=== PATIENT | male | born 1955 | race Caucasian/White ===

== ENCOUNTER 2016-08-06 09:08 | Day surgery (SDC) | payer BC ==
[2016-08-03 14:53] VITALS: BMI 40.6
[~2016-08-06 09:08] MED LIST: LACTATED RINGERS 1,000 ML IV SCH
[2016-08-06] MEDS ORDERED: LIDOCAINE 1% 20 ML VIAL (10MG/ML) FOR IV START SQ ONE (09:33)
[2016-08-06 09:53] VITALS: RESP 16; TEMP 99
[2016-08-06] MEDS ORDERED: LIDOCAINE 1% INJ 10MG/ML (20 ML MDV) ONE (10:23)
[2016-08-06] MEDS ORDERED: PROPOFOL 10 MG/ML 20 ML VIAL IV ONE (10:23)
--- NOTE | 2016-08-06 11:00 | P.PCN ---
Date of Procedure: 08/06/16 Procedure(s) Performed: Procedure: Colonoscopy and polypectomy. Preoperative diagnosis: Screening for neoplasia, patient has history of polyps. Postoperative diagnosis: Multiple polyps snared but no large polyps or cancer. Preparation: HalfLytely prep. Sedation: Was provided by anesthesia. Brief clinical history: The patient is a 60-year-old male who is scheduled for this evaluation because of history of polyps. He had 2 prior exam the last was around 3 years ago. At this time, he has no abdominal complaints, bleeding or anemia. Procedure: With the patient on his left lateral decubitus position and after informed consent and adequate sedation, the perianal area was inspected and it did not show any fissures or fistulas. There were no masses felt on digital rectal examination. The Olympus CFQ 160L video colonoscope was then inserted in the rectum in the usual fashion and advanced to the cecum. There were multiple small and medium flat polyps which were snared from the right colon, splenic flexure and sigmoid. There were no large polyps or cancer or other significant pathology. I retroflexed endoscope in the rectum before the endoscope was withdrawn. The patient tolerated the procedure well. Plan: The patient was reassured. He will follow up with you as planned and I recommended a repeat exam in 3-5 years based on pathology results.
[2016-08-06 11:19] VITALS: BP 131/85; PULSE 61
== END 2016-08-06 11:49 | disposition home or self-care (01) ==
LOC: ORWHC2ENDO 09:08
DX: Z12.11 Encounter for screening for malignant neoplasm of colon (principal); D12.2 Benign neoplasm of ascending colon; D12.5 Benign neoplasm of sigmoid colon; D12.3 Benign neoplasm of transverse colon; Z86.010 Personal history of colon polyps; I10 Essential (primary) hypertension; E78.5 Hyperlipidemia, unspecified; Z88.8 Allergy status to other drugs, medicaments and biological substances; Z79.82 Long term (current) use of aspirin; Z79.899 Other long term (current) drug therapy; Z87.442 Personal history of urinary calculi
CPT/HCPCS: 88305; 45385; J2001; J2704; 99153

== ENCOUNTER 2020-01-21 16:28 | Inpatient (IN) | payer BC ==
[2020-01-21] MEDS ORDERED: ACETAMINOPHEN TAB 500 MG TAB PO STA (16:53)
[2020-01-21] MEDS ORDERED: IPRATROPIUM-ALBUTEROL 3 ML NEB INHALATION STA (16:54)
--- NOTE | 2020-01-21 16:56 | ED ---
General Adult HPI - General Chief complaint: Shortness of Breath Stated complaint: SOB/COVID positive Time Seen by Provider: 01/21/20 16:45 Source: patient, RN notes reviewed Mode of arrival: ambulatory Limitations: no limitations - History of Present Illness Initial comments: Patient is a [facility] 64-year-old male presenting to the emergency department with difficulty in breathing. Patient has been having fevers for the past 2 weeks. Patient was tested positive for Crohn a virus 5 days ago. Patient was at a testing facility outside of [place]. Minimal cough. Patient has been having shortness of breath over the past 2-3 days. Patient is having fatigue. Patient still has fevers. Minimal headaches. Patient has lost sense of smell and taste. No significant rhinorrhea. Patient is a former smoker of 35 years - Related Data Home Medications Medication Instructions Recorded Confirmed ALPRAZolam [Xanax] 0.5 mg PO BID PRN 11/23/13 08/06/16 Aspirin 81 mg PO DAILY 11/23/13 08/03/16 Atorvastatin [Lipitor] 20 mg PO HS 11/23/13 08/03/16 Multivitamin [Men's Multi-Vitamin] 1 each PO DAILY 11/23/13 08/03/16 Fish Oil/Dha/Epa [Fish Oil 1,200 1 tab PO DAILY 11/24/13 08/03/16 mg Fish Oil] amLODIPine BESYLATE/BENAZEPRIL 1 tab PO DAILY 11/24/13 08/06/16 [Lotrel 10-40 MG] Albuterol Inhaler (Mhu) [Ventolin 1 puff INHALATION DIRECTED PRN 08/03/16 08/06/16 Hfa Inhaler] Triamterene-Hctz 37.5-25Mg 1 tab PO DAILY 08/03/16 08/03/16 [Maxzide 37.5-25] Allergies Allergy/AdvReac Type Severity Reaction Status Date / Time loratadine [From Claritin] AdvReac dizziness Verified 01/21/20 16:37 Review of Systems ROS Statement: Those systems with pertinent positive or pertinent negative responses have been documented in the HPI. ROS Other: All systems not noted in ROS Statement are negative. Constitutional: Reports: fever, chills Eyes: Denies: eye pain ENT: Denies: ear pain Respiratory: Reports: cough (Minimal), dyspnea Cardiovascular: Denies: chest pain Endocrine: Reports: fatigue Gastrointestinal: Denies: abdominal pain Genitourinary: Denies: dysuria Musculoskeletal: Denies: back pain Skin: Denies: rash Neurological: Denies: weakness Past Medical History Past Medical History: Hyperlipidemia, Hypertension Additional Past Medical History / Comment(s): SOB on excertion, kidney stones History of Any Multi-Drug Resistant Organisms: None Reported Past Surgical History: Cholecystectomy Additional Past Surgical History / Comment(s): RK SURGERY ON EYES, SKIN CANCER REMOVED from top of head, vasectomy Past Anesthesia/Blood Transfusion Reactions: No Reported Reaction Past Psychological History: No Psychological Hx Reported Smoking Status: Never smoker Past Alcohol Use History: Rare Past Drug Use History: None Reported - Past Family History Father Family Medical History: Cancer General Exam Limitations: no limitations General appearance: alert, in no apparent distress Head exam: Present: normocephalic Eye exam: Present: normal appearance Neck exam: Present: normal inspection Respiratory exam: Present: wheezes (Occasional expiratory wheeze), decreased breath sounds Cardiovascular Exam: Present: regular rate, normal rhythm GI/Abdominal exam: Present: soft. Absent: tenderness Extremities exam: Present: normal inspection. Absent: pedal edema, calf tenderness Neurological exam: Present: alert Psychiatric exam: Present: normal affect, normal mood Skin exam: Present: normal color Course Vital Signs 01/21/20 01/21/20 01/21/20 16:33 17:57 18:00 Temperature 99.5 F 98.2 F Pulse Rate 77 71 Respiratory 22 28 H 24 Rate Blood Pressure 134/76 125/66 O2 Sat by Pulse 90 L 92 L Oximetry 01/21/20 01/21/20 18:23 18:30 Temperature Pulse Rate 72 74 Respiratory Rate Blood Pressure O2 Sat by Pulse Oximetry EKG Findings - EKG Comments: EKG Findings:: Sinus rhythm at 77. MO 128. QRS 94. QT 390. QTC 441. Normal axis. Normal QRS. No acute ST change. Medical Decision Making - Medical Decision Making Patient reevaluated with pulse ox 9091 on 3 L. Patient states she is slightly improved with oxygen. Patient updated on results and plan. Case was discussed with Dr. Livingston, covering for Dr. Reich, who admits for Dr. henson. He does recommend Decadron. And pulmonary consult. - Lab Data Result diagrams: 01/21/20 17:35 01/21/20 17:35 Lab Results 01/21/20 01/21/20 01/21/20 Range/Units 17:35 17:35 17:35 WBC 4.9 (3.8-10.6) k/uL RBC 5.17 (4.30-5.90) m/uL Hgb 14.9 (13.0-17.5) gm/dL Hct 44.8 (39.0-53.0) % MCV 86.6 (80.0-100.0) fL MCH 28.8 (25.0-35.0) pg MCHC 33.3 (31.0-37.0) g/dL RDW 13.1 (11.5-15.5) % Plt Count 191 (150-450) k/uL Neutrophils % 69 % Lymphocytes % 19 % Monocytes % 8 % Eosinophils % 1 % Basophils % 1 % Neutrophils # 3.4 (1.3-7.7) k/uL Lymphocytes # 0.9 L (1.0-4.8) k/uL Monocytes # 0.4 (0-1.0) k/uL Eosinophils # 0.0 (0-0.7) k/uL Basophils # 0.0 (0-0.2) k/uL PT 9.4 (9.0-12.0) sec INR 0.9 (<1.2) APTT 26.5 (22.0-30.0) sec Sodium 135 L (137-145) mmol/L Potassium 4.1 (3.5-5.1) mmol/L Chloride 103 (98-107) mmol/L Carbon Dioxide 21 L (22-30) mmol/L Anion Gap 11 mmol/L BUN 18 (9-20) mg/dL Creatinine 1.24 (0.66-1.25) mg/dL Est GFR (CKD-EPI)AfAm 71 (>60 ml/min/1.73 sqM) Est GFR (CKD-EPI)NonAf 61 (>60 ml/min/1.73 sqM) Glucose 122 H (74-99) mg/dL Plasma Lactic Acid Damian (0.7-2.0) mmol/L Calcium 8.8 (8.4-10.2) mg/dL Magnesium 2.0 (1.6-2.3) mg/dL Total Bilirubin 0.5 (0.2-1.3) mg/dL AST 94 H (17-59) U/L ALT 80 H (4-49) U/L Alkaline Phosphatase 165 H (38-126) U/L Lactate Dehydrogenase 1532 H (313-618) U/L C-Reactive Protein 81.9 H (<10.0) mg/L Total Protein 6.5 (6.3-8.2) g/dL Albumin 3.8 (3.5-5.0) g/dL 01/21/20 Range/Units 17:35 WBC (3.8-10.6) k/uL RBC (4.30-5.90) m/uL Hgb (13.0-17.5) gm/dL Hct (39.0-53.0) % MCV (80.0-100.0) fL MCH (25.0-35.0) pg MCHC (31.0-37.0) g/dL RDW (11.5-15.5) % Plt Count (150-450) k/uL Neutrophils % % Lymphocytes % % Monocytes % % Eosinophils % % Basophils % % Neutrophils # (1.3-7.7) k/uL Lymphocytes # (1.0-4.8) k/uL Monocytes # (0-1.0) k/uL Eosinophils # (0-0.7) k/uL Basophils # (0-0.2) k/uL PT (9.0-12.0) sec INR (<1.2) APTT (22.0-30.0) sec Sodium (137-145) mmol/L Potassium (3.5-5.1) mmol/L Chloride (98-107) mmol/L Carbon Dioxide (22-30) mmol/L Anion Gap mmol/L BUN (9-20) mg/dL Creatinine (0.66-1.25) mg/dL Est GFR (CKD-EPI)AfAm (>60 ml/min/1.73 sqM) Est GFR (CKD-EPI)NonAf (>60 ml/min/1.73 sqM) Glucose (74-99) mg/dL Plasma Lactic Acid Damian 1.1 (0.7-2.0) mmol/L Calcium (8.4-10.2) mg/dL Magnesium (1.6-2.3) mg/dL Total Bilirubin (0.2-1.3) mg/dL AST (17-59) U/L ALT (4-49) U/L Alkaline Phosphatase (38-126) U/L Lactate Dehydrogenase (313-618) U/L C-Reactive Protein (<10.0) mg/L Total Protein (6.3-8.2) g/dL Albumin (3.5-5.0) g/dL - Radiology Data Radiology results: image reviewed (Chest x-ray shows hazy asymmetric opacification left lung base.) Disposition Clinical Impression: COVID-19 Disposition: ADMITTED IP TO THIS [facility] Condition: Serious Is patient prescribed a controlled substance at d/c from ED?: No Referrals: Jesus Arnold MD [Primary Care Provider] - 1-2 days Decision Time: 19:05
--- NOTE | 2020-01-21 17:35 | XR ---
EXAMINATION TYPE: XR chest 1V portable DATE OF EXAM: 01/21/2020 COMPARISON: Chest radiograph 11/26/2013 HISTORY: Shortness of breath and cough. COVID-19 positive. TECHNIQUE: Single frontal view of the chest is obtained. FINDINGS: There is hazy asymmetric opacification of the left lung base and silhouetting of the left heart border suggesting lingular involvement. No evidence of pleural effusion or pneumothorax. The c ardiac silhouette size is within normal limits. No evidence of displaced fracture. IMPRESSION: Hazy asymmetric opacification of the left lung base. Findings are nonspecific and could be related to COVID-19 viral infection.
[2020-01-21 17:55] LABS: Basophils % (A) 1 %; Eosinophils % (A) 1 %; HCT 44.8 % (39.0-53.0); HGB 14.9 gm/dL (13.0-17.5); Lymphocytes # (A) 0.9 k/uL (1.0-4.8); Lymphocytes % (A) 19 %; MCH 28.8 pg (25.0-35.0); MCHC 33.3 g/dL (31.0-37.0); MCV 86.6 fL (80.0-100.0); Mean Platelet Volume 8.2; Monocytes # (A) 0.4 k/uL (0-1.0); Monocytes % (A) 8 %; Neutrophils # (A) 3.4 k/uL (1.3-7.7); Neutrophils % (A) 69 %; Platelet Count 191 k/uL (150-450); RBC 5.17 m/uL (4.30-5.90); RDW 13.1 % (11.5-15.5); WBC 4.9 k/uL (3.8-10.6)
[2020-01-21 18:10] LABS: Albumin 3.8 g/dL (3.5-5.0); C Reactive Protein 81.9 mg/L (<10.0); Calcium 8.8 mg/dL (8.4-10.2); Potassium 4.1 mmol/L (3.5-5.1); Total Bilirubin 0.5 mg/dL (0.2-1.3); Total Protein 6.5 g/dL (6.3-8.2)
[2020-01-21 18:15] LABS: INR 0.9 (<1.2); Partial Thromboplastin Time 26.5 sec (22.0-30.0); Prothrombin Time 9.4 sec (9.0-12.0)
[2020-01-21] MEDS ORDERED: IPRATROPIUM-ALBUTEROL 3 ML NEB INHALATION PRN (19:06)
[2020-01-21] MEDS ORDERED: DEXAMETHASONE SOD PHOSPHATE 4 MG/ML 1 ML VIAL IV SCH (19:15)
--- NOTE | 2020-01-21 20:21 | P.HPIM ---
History of Present Illness H&P Date: 01/21/20 The patient is a 64-year-old male with a PMH of hypertension, hyperlipidemia, and tobacco abuse who presented to the ED with complaints of shortness of breath. The patient notes he was tested for Coronavirus 5 days ago at an urgent care in [place] and was notified 2 days later that his test was positive. He reports fevers, myalgia, anosmia, fatigue, with gradually worsening shortness of breath over the past 2 weeks. He denied sore throat or cough. Denied nausea, vomiting, abdominal pain, or diarrhea. Denied chest pain. In the emergency room, upon presentation his vitals were 134/76, SpO2 90% on room air, temperature 99.5F, and a pulse of 77. Chest x-ray was read as hazy asymme tric opacification of the left lung base. EKG had revealed sinus rhythm with APCs at 77 bpm with no acute ST/T-wave changes noted as reviewed by me. Laboratory evaluation revealed a WBC count of 4.9, lymphopenia at 0.9, hemoglobin 14.9, platelets 191, CRP 81.9, LDH 1532, AST 94, ALT 80, alkaline p hosphatase 165, sodium 135, CO2 21. The patient was seen with appropriate PPE including N-95, protective gown, and face shield. Review of Systems Pertinent positives and negatives as discussed in HPI, a complete review of systems was performed and all other systems are negative. Past Medical History Past Medical History: Hyperlipidemia, Hypertension Additional Past Medical History / Comment(s): SOB on excertion, kidney stones History of Any Multi-Drug Resistant Organisms: None Reported Past Surgical History: Cholecystectomy Additional Past Surgical History / Comment(s): RK SURGERY ON EYES, SKIN CANCER REMOVED from top of head, vasectomy Past Anesthesia/Blood Transfusion Reactions: No Reported Reaction Past Psychological History: No Psychological Hx Reported Smoking Status: Never smoker Past Alcohol Use History: Rare Past Drug Use History: None Reported - Past Family History Father Family Medical History: Cancer Medications and Allergies Home Medications Medication Instructions Recorded Confirmed Type ALPRAZolam [Xanax] 0.5 mg PO BID PRN 11/23/13 01/21/20 History Aspirin 81 mg PO HS 11/23/13 01/21/20 History Atorvastatin [Lipitor] 20 mg PO HS 11/23/13 01/21/20 History Multivitamin [Men's Multi-Vitamin] 1 tab PO DAILY 11/23/13 01/21/20 History Fish Oil/Dha/Epa [Fish Oil 1,200 1 tab PO BID 11/24/13 01/21/20 History mg Fish Oil] amLODIPine BESYLATE/BENAZEPRIL 1 cap PO DAILY 11/24/13 01/21/20 History [Lotrel 10-40 MG] Triamterene-Hctz 37.5-25Mg 1 tab PO DAILY 08/03/16 01/21/20 History [Maxzide 37.5-25] Cholecalciferol [Vitamin D3 (25 2,000 unit PO DAILY 01/21/20 01/21/20 History Mcg = 1000 Iu)] Allergies Allergy/AdvReac Type Severity Reaction Status Date / Time loratadine [From Claritin] AdvReac dizziness Verified 01/21/20 21:13 Physical Exam Vitals: Vital Signs Temp Pulse Resp BP Pulse Ox 01/21/20 18:30 74 01/21/20 18:23 72 01/21/20 18:00 24 01/21/20 17:57 98.2 F 71 28 H 125/66 92 L 01/21/20 16:33 99.5 F 77 22 134/76 90 L Intake and Output 01/21/20 01/21/20 01/21/20 06:59 14:59 22:59 Other: Weight 136.078 kg General: non toxic, no distress, appears at stated age, morbidly obese Derm: no unusual rashes/lesions no unusual ecchymoses, warm, dry Head: atraumatic, normocephalic, symmetric Eyes: EOMI, no lid lag, anicteric sclera, pupils equal round reactive to light ENT: Nose and ears atraumatic, no thrush, no pharyngeal erythema Neck: No thyromegaly, no cervical lymphadenopathy, trachea midline, supple Mouth: no lip lesion, mucus membranes moist Cardiovascular: S1S2 reg, no murmur, positive posterior tibial pulse bilateral, no edema, capillary refill less than 2 seconds Lungs: CTA bilateral, no rhonchi, no rales , no accessory muscle use Abdominal: soft, nontender to palpation, no guarding, no appreciable organomegaly, normal bowel sounds Ext: no gross muscle atrophy, muscle strength 5 out of 5 in all 4 extremities grossly, no contractures, Neuro: CN II-XI grossly intact, light touch intact all 4 extremities, finger to nose within normal limits, Psych: Alert, oriented, appropriate affect Results CBC & Chem 7: 01/21/20 17:35 01/21/20 17:35 Labs: Abnormal Lab Results - Last 24 Hours (Table) 01/21/20 01/21/20 Range/Units 17:35 17:35 Lymphocytes # 0.9 L (1.0-4.8) k/uL Sodium 135 L (137-145) mmol/L Carbon Dioxide 21 L (22-30) mmol/L Glucose 122 H (74-99) mg/dL AST 94 H (17-59) U/L ALT 80 H (4-49) U/L Alkaline Phosphatase 165 H (38-126) U/L Lactate Dehydrogenase 1532 H (313-618) U/L C-Reactive Protein 81.9 H (<10.0) mg/L Assessment and Plan Plan: Covid-19 infection -Obtain ferritin, CPK, fibrinogen, BNP, and d-dimer levels -Continue with supplemental oxygen -Patient does not meet criteria for Remdesevir (since >7 days since onset of symptoms) -Will initiate Dexamethasone 6 mg qd PO x 10 days -Monitor labs daily -Start Lovenox 40 mg qd for now. If D-dimer > 3, may consider increasing dose -Will hold off on Hydroxychloroquine for now -Monitor LFTs daily -Isolation precautions Chronic conditions: HTN, HLD -C/w home meds DVT prophylaxis -Lovenox 40 mg qd The patient is admitted with an anticipated greater than 2 midnight stay for evaluation of Covid-19 infection CODE STATUS: Full Code Discussed with: Patient Anticipated discharge date: 3-[address]: Home A total of 40 minutes was spent on the care of this complex patient more than 50% of the time was spent in counseling and care coordination.
[2020-01-21] MEDS ORDERED: ENOXAPARIN 40 MG/0.4 ML SYRINGE SQ SCH (21:00)
[2020-01-21 21:28] LABS: D-Dimer 1.13 mg/L FEU (<0.60)
[2020-01-22] MEDS: amLODIPine 10 MG TAB PO SCH (08:13)
[2020-01-22] MEDS: TRIAMTERENE-HCTZ 37.5-25MG 1 EACH TAB PO SCH (08:14)
[2020-01-22] MEDS: lisinopriL 20 MG TAB PO SCH (08:14)
[2020-01-22] MEDS: dexAMETHasone 2 MG TAB PO SCH (08:14)
[2020-01-22 08:21] LABS: HCT 47.7 % (39.0-53.0); HGB 16.1 gm/dL (13.0-17.5); MCH 29.8 pg (25.0-35.0); MCHC 33.7 g/dL (31.0-37.0); MCV 88.7 fL (80.0-100.0); Mean Platelet Volume 8.4; Platelet Count 178 k/uL (150-450); RBC 5.38 m/uL (4.30-5.90); RDW 13.1 % (11.5-15.5); WBC 3.2 k/uL (3.8-10.6)
[2020-01-22 08:30] LABS: Prothrombin Time 10.1 sec (9.0-12.0)
[2020-01-22 08:35] LABS: Albumin 3.9 g/dL (3.5-5.0); Calcium 8.5 mg/dL (8.4-10.2); Potassium 4.5 mmol/L (3.5-5.1); Total Bilirubin 0.6 mg/dL (0.2-1.3); Total Protein 6.5 g/dL (6.3-8.2)
[2020-01-22 09:08] LABS: C Reactive Protein 149.6 mg/L (<10.0)
[2020-01-22] MEDS: FAMOTIDINE 20 MG TAB PO SCH (11:37)
--- NOTE | 2020-01-22 11:57 | P.CNPUL ---
History of Present Illness Consult date: 01/22/20 Reason for consult: dyspnea, other Chief complaint: Dyspnea, fever History of present illness: 64-year-old white male patient of Dr. Arnold, with history of hypertension, hyperlipidemia, former smoker, presented to the emergency department on 01/21/2020 with 2 week history of fevers and patient had been tested for Co ronavirus at a testing facility outside of [place], and was found to be positive. Over last to 3 days patient has been increasingly short of breath, complaining of fatigue, headaches, loss of smell and taste, and still having fevers. Patient was also found to be hypoxemic, with a pulse ox of 90-91 on 3 L of oxygen, only low-grade temp of 99.5F on presentation, afebrile during his hospital stay, hemodynamically he is stable, chest x-ray showing hazy asymmetric opacification of the left lung base. EKG showing sinus rhythm with PVCs, was normal EKG. Labs on admission showed CBC within normal limits with the exception of lymphocyte count of 0.9, d-dimer of 1.13, fibrinogen 590, sodium is 135, CO2 is 21, the rest of electrolytes and renal profile were unremarkable, plasma lactic acid was 1.1, AST was 94, ALT was 80, alkaline phosphatase was 165, LDH was 1532, CK was 264, troponin was 0.024, and 0.012. ProBNP was 82. Patient was started on oral Decadron at 6 milligrams daily, prophylactic doses of Lovenox, he is on his home dose of Lipitor, home dose of lisinopril, Triamterene-Hctz. At the time of our evaluation patient is in isolation, and droplet precautions, awake and alert, on 4 L of oxygen his pulse ox is 94%, respirations are nonlabored, short of breath with exertion, afebrile, hemodynamically stable. Denies any worsening shortness of breath, no nausea vomiting abdominal pain or diarrhea, no chest pain. Review of Systems All systems: negative Constitutional: Reports fatigue, Reports weakness, Denies chills, Denies fever Eyes: denies blurred vision, denies pain Ears, nose, mouth and throat: Denies headache, Denies sore throat Cardiovascular: Denies chest pain, Denies shortness of breath Respiratory: Reports dyspnea, Denies cough Gastrointestinal: Denies abdominal pain, Denies diarrhea, Denies nausea, Denies vomiting Musculoskeletal: Denies myalgias Integumentary: Denies pruritus, Denies rash Neurological: Denies numbness, Denies weakness Psychiatric: Denies anxiety, Denies depression Endocrine: Denies fatigue, Denies weight change Past Medical History Past Medical History: Hyperlipidemia, Hypertension Additional Past Medical History / Comment(s): SOB on excertion, kidney stones History of Any Multi-Drug Resistant Organisms: None Reported Past Surgical History: Cholecystectomy Additional Past Surgical History / Comment(s): RK SURGERY ON EYES, SKIN CANCER REMOVED from top of head, vasectomy Past Anesthesia/Blood Transfusion Reactions: No Reported Reaction Past Psychological History: No Psychological Hx Reported Smoking Status: Never smoker Past Alcohol Use History: Rare Past Drug Use History: None Reported - Past Family History Father Family Medical History: Cancer Medications and Allergies Home Medications Medication Instructions Recorded Confirmed Type ALPRAZolam [Xanax] 0.5 mg PO BID PRN 11/23/13 01/21/20 History Aspirin 81 mg PO HS 11/23/13 01/21/20 History Atorvastatin [Lipitor] 20 mg PO HS 11/23/13 01/21/20 History Multivitamin [Men's Multi-Vitamin] 1 tab PO DAILY 11/23/13 01/21/20 History Fish Oil/Dha/Epa [Fish Oil 1,200 1 tab PO BID 11/24/13 01/21/20 History mg Fish Oil] amLODIPine BESYLATE/BENAZEPRIL 1 cap PO DAILY 11/24/13 01/21/20 History [Lotrel 10-40 MG] Triamterene-Hctz 37.5-25Mg 1 tab PO DAILY 08/03/16 01/21/20 History [Maxzide 37.5-25] Cholecalciferol [Vitamin D3 (25 2,000 unit PO DAILY 01/21/20 01/21/20 History Mcg = 1000 Iu)] Allergies Allergy/AdvReac Type Severity Reaction Status Date / Time loratadine [From Claritin] AdvReac dizziness Verified 01/21/20 21:13 Physical Exam Vitals: Vital Signs Temp Pulse Pulse Resp BP BP BP 01/22/20 08:00 65 18 01/22/20 07:19 97.8 F 65 20 120/66 01/22/20 00:46 97.6 F 59 L 16 01/21/20 21:09 97.8 F 58 L 18 122/67 01/21/20 20:00 79 21 103/60 01/21/20 18:30 74 01/21/20 18:23 72 01/21/20 18:00 24 01/21/20 17:57 98.2 F 71 28 H 125/66 01/21/20 16:33 99.5 F 77 22 134/76 BP Pulse Ox 01/22/20 08:00 01/22/20 07:19 95 01/22/20 00:46 109/63 92 L 01/21/20 21:09 93 L 01/21/20 20:00 4 L 01/21/20 18:30 01/21/20 18:23 01/21/20 18:00 01/21/20 17:57 92 L 01/21/20 16:33 90 L Intake and Output 01/21/20 01/22/20 01/22/20 22:59 06:59 14:59 Other: Voiding Method Toilet Toilet # Voids 1 1 1 Weight 136.078 kg GENERAL EXAM: Alert, very pleasant, 64 -year-old white male on 4 L of oxygen with pulse ox of 95%, comfortable in no apparent distress. HEAD: Normocephalic/atraumatic. EYES: Normal reaction of pupils, equal size. Conjunctiva pink, sclera white. NOSE: Clear with pink turbinates. THROAT: No erythema or exudates. NECK: No masses, no JVD, no thyroid enlargement, no adenopathy. CHEST: No chest wall deformity. Symmetrical expansion. LUNGS: Equal air entry with no crackles, wheeze, rhonchi or dullness. CVS: Regular rate and rhythm, normal S1 and S2, no gallops, no murmurs, no rubs ABDOMEN: Soft, nontender. No hepatosplenomegaly, normal bowel sounds, no guarding or rigidity. EXTREMITIES: No clubbing, no edema, no cyanosis, 2+ pulses and upper and lower extremities. MUSCULOSKELETAL: Muscle strength and tone normal. SPINE: No scoliosis or deformity SKIN: No rashes CENTRAL NERVOUS SYSTEM: Alert and oriented -3. No focal deficits, tone is normal in all 4 extremities. PSYCHIATRIC: Alert and oriented -3. Appropriate affect. Intact judgment and insight. Results - Laboratory Findings CBC and BMP: 01/22/20 07:31 01/22/20 07:31 PT/INR, D-dimer PT 10.1 sec (9.0-12.0) 01/22/20 07:31 INR 1.0 (<1.2) 01/22/20 07:31 D-Dimer 1.13 mg/L FEU (<0.60) H 01/21/20 20:31 Abnormal lab findings: Abnormal Labs 01/21/20 01/21/20 01/21/20 17:35 17:35 20:31 WBC Lymphocytes # 0.9 L Fibrinogen 590 H D-Dimer 1.13 H Sodium 135 L Carbon Dioxide 21 L BUN Glucose 122 H AST 94 H ALT 80 H Alkaline Phosphatase 165 H Lactate Dehydrogenase 1532 H Creatine Kinase C-Reactive Protein 81.9 H 01/21/20 01/22/20 01/22/20 20:31 07:31 07:31 WBC 3.2 L Lymphocytes # Fibrinogen 608 H D-Dimer Sodium Carbon Dioxide BUN Glucose AST ALT Alkaline Phosphatase Lactate Dehydrogenase Creatine Kinase 264 H C-Reactive Protein 01/22/20 07:31 WBC Lymphocytes # Fibrinogen D-Dimer Sodium Carbon Dioxide BUN 22 H Glucose 158 H AST 76 H ALT 70 H Alkaline Phosphatase 151 H Lactate Dehydrogenase 1184 H Creatine Kinase C-Reactive Protein 149.6 H - Diagnostic Findings Chest x-ray: report reviewed, image reviewed Additional studies: EKG reviewed Assessment and Plan Plan: Assessment: #1. Acute COVID 19 pneumonitis, patient tested at an outside facility For COVID 19 5 days prior to presentation and was found to be positive, onset of symptoms was 2 weeks ago prior to presentation. Chest x-ray showing hazy asymmetric opacification of the left lung base #2. Acute hypoxic respiratory failure related to the above #3. Lymphopenia, elevated d-dimer of 1.13, elevated fibrinogen, LDH and CRP related to acute Covid 19 infection #4. Dyspnea, fatigue, anosmia related to the above #5. Hypertension #6. Hyperlipidemia #7. Former smoker, currently in remission Plan: Continue current dose Decadron for a total course of 10 days, we'll increase the prophylactic dose of Lovenox to 80 mg twice daily, will add Pepcid 40 mg daily, continue all other medications, we'll continue to monitor the patient for any worsening symptoms of shortness of breath, worsening hypoxemia. Follow-up chest x-ray in 48 hours I performed a history & physical examination of the patient and discussed their management with my nurse practitioner, Jami Andrews. I reviewed the nurse practitioner's note and agree with the documented findings and plan of care. Lung sounds are positive for diminished breath sounds at the bases. The findings and the impression was discussed with the patient. I attest to the documentation by the nurse practitioner. Time with Patient: Greater than 30
[2020-01-22 12:03] LABS: Ferritin 3005.6 ng/mL (22.0-322.0)
[2020-01-22] MEDS: ALBUTEROL HFA INHALER INHALATION PRN ×3 (13:06→20:27)
[2020-01-22] MEDS ORDERED: AZITHROMYCIN 500 MG in SODIUM CHLORIDE 0.9% 250 ML IVPB SCH (17:00)
--- NOTE | 2020-01-22 17:04 | P.PN ---
Subjective Progress Note Date: 01/22/20 Principal diagnosis: Shortness of breath Patient was seen and examined. No acute events overnight. Patient continues to report shortness of breath especially with exertion. He has no other complaints. He denies any chest pain or palpitations. No nausea or vomiting. No fever or chills. Objective - Vital Signs Vital signs: Vital Signs Temp 98.1 F 01/22/20 12:00 Pulse 71 01/22/20 12:00 Resp 18 01/22/20 12:00 BP 127/71 01/22/20 12:00 Pulse Ox 90 L 01/22/20 12:00 Intake & Output 01/21/20 01/22/20 01/22/20 18:59 06:59 18:59 Weight 136.078 kg 136.078 kg Other: Voiding Method Toilet Toilet # Voids 1 2 - Exam General: [non toxic], [no distress on 3 L NC], [appears at stated age] Derm: [warm], [dry] Head: [atraumatic], [normocephalic], [symmetric] Eyes: [EOMI], [no lid lag], [anicteric sclera] Mouth: [no lip lesion], [mucus membranes moist] Cardiovascular: [S1S2 reg], [no murmur], [positive DP pulse bilateral], Lungs: [Decreased breath sounds bilateral], [no rhonchi, no rales] , [no accessory muscle use] Abdominal: [soft], [ nontender to palpation], [no guarding], [no appreciable organomegaly] Ext: [no gross muscle atrophy], [no edema], [no contractures] Neuro: [no focal neuro deficits] Psych: [Alert], [oriented], [appropriate affect] - Labs CBC & Chem 7: 01/22/20 07:31 01/22/20 07:31 Labs: Abnormal Lab Results - Last 24 Hours (Table) 01/21/20 01/21/20 01/21/20 Range/Units 17:35 17:35 17:35 WBC (3.8-10.6) k/uL Lymphocytes # 0.9 L (1.0-4.8) k/uL Fibrinogen (200-500) mg/dL D-Dimer (<0.60) mg/L FEU Sodium 135 L (137-145) mmol/L Carbon Dioxide 21 L (22-30) mmol/L BUN (9-20) mg/dL Glucose 122 H (74-99) mg/dL Ferritin 3005.6 H (22.0-322.0) ng/mL AST 94 H (17-59) U/L ALT 80 H (4-49) U/L Alkaline Phosphatase 165 H (38-126) U/L Lactate Dehydrogenase 1532 H (313-618) U/L Creatine Kinase (55-170) U/L C-Reactive Protein 81.9 H (<10.0) mg/L Procalcitonin 0.23 H (0.02-0.09) ng/mL Coronavirus (PCR) (Not Detected) 01/21/20 01/21/20 01/21/20 Range/Units 18:15 20:31 20:31 WBC (3.8-10.6) k/uL Lymphocytes # (1.0-4.8) k/uL Fibrinogen 590 H (200-500) mg/dL D-Dimer 1.13 H (<0.60) mg/L FEU Sodium (137-145) mmol/L Carbon Dioxide (22-30) mmol/L BUN (9-20) mg/dL Glucose (74-99) mg/dL Ferritin (22.0-322.0) ng/mL AST (17-59) U/L ALT (4-49) U/L Alkaline Phosphatase (38-126) U/L Lactate Dehydrogenase (313-618) U/L Creatine Kinase 264 H (55-170) U/L C-Reactive Protein (<10.0) mg/L Procalcitonin (0.02-0.09) ng/mL Coronavirus (PCR) Detected H (Not Detected) 01/22/20 01/22/20 01/22/20 Range/Units 07:31 07:31 07:31 WBC 3.2 L (3.8-10.6) k/uL Lymphocytes # (1.0-4.8) k/uL Fibrinogen 608 H (200-500) mg/dL D-Dimer (<0.60) mg/L FEU Sodium (137-145) mmol/L Carbon Dioxide (22-30) mmol/L BUN 22 H (9-20) mg/dL Glucose 158 H (74-99) mg/dL Ferritin (22.0-322.0) ng/mL AST 76 H (17-59) U/L ALT 70 H (4-49) U/L Alkaline Phosphatase 151 H (38-126) U/L Lactate Dehydrogenase 1184 H (313-618) U/L Creatine Kinase (55-170) U/L C-Reactive Protein 149.6 H (<10.0) mg/L Procalcitonin (0.02-0.09) ng/mL Coronavirus (PCR) (Not Detected) 01/22/20 01/22/20 Range/Units 12:08 12:08 WBC (3.8-10.6) k/uL Lymphocytes # (1.0-4.8) k/uL Fibrinogen (200-500) mg/dL D-Dimer 0.95 H (<0.60) mg/L FEU Sodium (137-145) mmol/L Carbon Dioxide (22-30) mmol/L BUN (9-20) mg/dL Glucose (74-99) mg/dL Ferritin (22.0-322.0) ng/mL AST (17-59) U/L ALT (4-49) U/L Alkaline Phosphatase (38-126) U/L Lactate Dehydrogenase (313-618) U/L Creatine Kinase (55-170) U/L C-Reactive Protein 138.1 H (<10.0) mg/L Procalcitonin (0.02-0.09) ng/mL Coronavirus (PCR) (Not Detected) Assessment and Plan Assessment: Acute hypoxic respiratory failure secondary to COVID 19 pneumonitis Elevated D-Dimer Community-acquired pneumonia Elevated BUN Hypertension Dyslipidemia Chest x-ray shows opacification in the left lung base. Patient is leukopenic. Elevated d-dimer 0.95. Elevated fibrinogen to 608 and LDH to 1184. Elevated CRP of 149.6. Coronavirus testing positive. Plans: Supplemental O2 to maintain O2 saturation greater than 92%. Continue dexamethasone by mouth. Started on IV antibiotics for treatment of pneumonia. Lovenox 80 mg subcutaneous twice a day for elevated d-dimer. Albuterol inhaler as needed for shortness of breath and wheezing. Telemetry monitoring. Follow blood culture. Follow inflammatory labs in 2 days (CRP, D-Dimer and LDH). Repeat chest x-ray in 2 days. Pulmonology on board. Likely related to coronavirus infection. Management as above. Chest x-ray shows possible left lower lobe infiltrate. Elevated pro-calcitonin. Plans: Start Rocephin and azithromycin for concerns of community-acquired pneumonia. Follow sputum culture. Likely related to dehydration. Plans: Patient encouraged hydration by mouth. Avoid nephrotoxins. Repeat BMP tomorrow morning. BP 127/71. Plans: Continue amlodipine, lisinopril, triamterene and hydrochlorothiazide. Monitor vitals, adjust medications if necessary. Plans: Continue aspirin and Lipitor. [Patient admitted for COVID 19 pneumonitis with possible superimposed pneumonia. He is on IV antibiotics. Pulmonology on board. He is pending clinical improvement. Likely DC in 2-3 days.]
[2020-01-22] MEDS: ENOXAPARIN 80 MG/0.8 ML SYRINGE SQ SCH (20:39)
[2020-01-22] MEDS: ATORVASTATIN 20 MG TAB PO SCH (20:39)
[2020-01-22] MEDS: ASPIRIN 81 MG PO SCH (20:39)
[2020-01-22] MEDS ORDERED: ENOXAPARIN 40 MG/0.4 ML SYRINGE SQ SCH (21:00)
[2020-01-23 07:32] LABS: Basophils % (A) 0 %; Eosinophils % (A) 0 %; HGB 14.2 gm/dL (13.0-17.5); Lymphocytes # (A) 0.7 k/uL (1.0-4.8); Lymphocytes % (A) 9 %; MCH 30.6 pg (25.0-35.0); MCHC 34.7 g/dL (31.0-37.0); MCV 88.2 fL (80.0-100.0); Mean Platelet Volume 8.1; Monocytes # (A) 0.6 k/uL (0-1.0); Monocytes % (A) 8 %; Neutrophils # (A) 6.4 k/uL (1.3-7.7); Neutrophils % (A) 81 %; Platelet Count 239 k/uL (150-450); RBC 4.65 m/uL (4.30-5.90); RDW 13.1 % (11.5-15.5); WBC 7.9 k/uL (3.8-10.6)
[2020-01-23 07:44] LABS: Creatine Kinase 173 U/L (55-170); LDH 1002 U/L (313-618)
[2020-01-23] MEDS: ALBUTEROL HFA INHALER INHALATION PRN ×4 (07:45→21:20)
[2020-01-23] MEDS: lisinopriL 20 MG TAB PO SCH (08:13)
[2020-01-23] MEDS: amLODIPine 10 MG TAB PO SCH (08:13)
[2020-01-23] MEDS: ENOXAPARIN 80 MG/0.8 ML SYRINGE SQ SCH ×2 (08:18→19:47)
[2020-01-23] MEDS: dexAMETHasone 2 MG TAB PO SCH (08:19)
[2020-01-23] MEDS: TRIAMTERENE-HCTZ 37.5-25MG 1 EACH TAB PO SCH (08:19)
[2020-01-23] MEDS: FAMOTIDINE 20 MG TAB PO SCH (08:19)
--- NOTE | 2020-01-23 12:08 | P.PN ---
Subjective Progress Note Date: 01/23/20 Principal diagnosis: Acute COVID 19 pneumonitis 64-year-old white male patient of Dr. Arnold, with history of hypertension, hyperlipidemia, former smoker, presented to the emergency department on 01/21/2020 with 2 week history of fevers and patient had been tested for Coronavirus at a testing facility outside of [place], and was found to be positive. Over last to 3 days patient has been increasingly short of breath, complaining of fatigue, headaches, loss of smell and taste, and still having fevers. Patient was also found to be hypoxemic, with a pulse ox of 90-91 on 3 L of oxygen, only low-grade temp of 99.5F on presentation, afebrile during his hospital stay, hemodynamically he is stable, chest x-ray showing hazy asymmetric opacification of the left lung base. EKG showing sinus rhythm with PVCs, was normal EKG. Labs on admission showed CBC within normal limits with the exception of lymphocyte count of 0.9, d-dimer of 1.13, fibrinogen 590, sodium is 135, CO2 is 21, the rest of electrolytes and renal profile were unremarkable, plasma lactic acid was 1.1, AST was 94, ALT was 80, alkaline phosphatase was 165, LDH was 1532, CK was 264, troponin was 0.024, and 0.012. ProBNP was 82. Patient was started on oral Decadron at 6 milligrams daily, prophylactic doses of Lovenox, he is on his home dose of Lipitor, home dose of lisinopril, Triamterene-Hctz. At the time of our evaluation patient is in isolation, and droplet precautions, awake and alert, on 4 L of oxygen his pulse ox is 94%, respirations are nonlabored, short of breath with exertion, afebrile, hemodynamically stable. Denies any worsening shortness of breath, no nausea vomiting abdominal pain or diarrhea, no chest pain. On 01/23/2020 patient seen in follow-up on esophageal medical surgical floor. He is awake and alert, currently on 4 L of oxygen, with a pulse ox of 90, his FiO2 was recently increased to 6 L, and his pulse ox is 90%, he states he is feeling about the same, does not appear to be in any acute distress, but is short of breath at rest and with any exertion. Denies any chest pain or palpitations, no nausea vomiting or diarrhea, no fever or chills. Patient is on empiric antibiotics in the form of azithromycin and ceftriaxone, oral dexamethasone, Lovenox, Pepcid. Lung sounds reveal clear diminished breath sounds at the bases. Today's labs have been reviewed, lymphocyte count is 0.7, normal white count of 7.9, LDH is trending down, down to 1002, and CK is down to 173. Pro-calcitonin was 0.23, and patient is on azithromycin and Rocephin. Objective - Vital Signs Vital signs: Vital Signs Temp 97.6 F 01/23/20 11:03 Pulse 57 L 01/23/20 11:03 Resp 18 01/23/20 11:03 BP 120/64 01/23/20 11:03 Pulse Ox 90 L 01/23/20 11:03 Intake & Output 01/22/20 01/23/20 01/23/20 18:59 06:59 18:59 Other: Voiding Method Toilet Toilet Toilet # Voids 2 1 - Exam GENERAL EXAM: Alert, very pleasant, 64 -year-old white male on 4 L of oxygen with pulse ox of 95%, and patient feels short of breath at rest and with exertion comfortable in no apparent distress. HEAD: Normocephalic/atraumatic. EYES: Normal reaction of pupils, equal size. Conjunctiva pink, sclera white. NOSE: Clear with pink turbinates. THROAT: No erythema or exudates. NECK: No masses, no JVD, no thyroid enlargement, no adenopathy. CHEST: No chest wall deformity. Symmetrical expansion. LUNGS: Equal air entry with no crackles, wheeze, rhonchi or dullness. CVS: Regular rate and rhythm, normal S1 and S2, no gallops, no murmurs, no rubs ABDOMEN: Soft, nontender. No hepatosplenomegaly, normal bowel sounds, no guarding or rigidity. EXTREMITIES: No clubbing, no edema, no cyanosis, 2+ pulses and upper and lower extremities. MUSCULOSKELETAL: Muscle strength and tone normal. SPINE: No scoliosis or deformity SKIN: No rashes CENTRAL NERVOUS SYSTEM: Alert and oriented -3. No focal deficits, tone is normal in all 4 extremities. PSYCHIATRIC: Alert and oriented -3. Appropriate affect. Intact judgment and insight. - Labs CBC & Chem 7: 01/23/20 07:07 01/22/20 07:31 Labs: Abnormal Lab Results - Last 24 Hours (Table) 01/21/20 01/21/20 01/21/20 Range/Units 17:35 17:35 18:15 Lymphocytes # (1.0-4.8) k/uL D-Dimer (<0.60) mg/L FEU Ferritin 3005.6 H (22.0-322.0) ng/mL Lactate Dehydrogenase (313-618) U/L Creatine Kinase (55-170) U/L C-Reactive Protein (<10.0) mg/L Procalcitonin 0.23 H (0.02-0.09) ng/mL Coronavirus (PCR) Detected H (Not Detected) 01/22/20 01/22/20 01/23/20 Range/Units 12:08 12:08 07:07 Lymphocytes # 0.7 L (1.0-4.8) k/uL D-Dimer 0.95 H (<0.60) mg/L FEU Ferritin (22.0-322.0) ng/mL Lactate Dehydrogenase (313-618) U/L Creatine Kinase (55-170) U/L C-Reactive Protein 138.1 H (<10.0) mg/L Procalcitonin (0.02-0.09) ng/mL Coronavirus (PCR) (Not Detected) 01/23/20 Range/Units 07:07 Lymphocytes # (1.0-4.8) k/uL D-Dimer (<0.60) mg/L FEU Ferritin (22.0-322.0) ng/mL Lactate Dehydrogenase 1002 H (313-618) U/L Creatine Kinase 173 H (55-170) U/L C-Reactive Protein (<10.0) mg/L Procalcitonin (0.02-0.09) ng/mL Coronavirus (PCR) (Not Detected) Microbiology - Last 24 Hours (Table) 01/21/20 17:35 Blood Culture - Preliminary Blood No Growth after 24 hours Assessment and Plan Plan: Assessment: #1. Acute COVID 19 pneumonitis, patient tested at an outside facility For COVID 19 5 days prior to presentation and was found to be positive, onset of symptoms was 2 weeks ago prior to presentation. Chest x-ray showing hazy asymmetric opacification of the left lung base #2. Acute hypoxic respiratory failure related to the above #3. Lymphopenia, elevated d-dimer of 1.13, elevated fibrinogen, LDH and CRP related to acute Covid 19 infection #4. Dyspnea, fatigue, anosmia related to the above #5. Hypertension #6. Hyperlipidemia #7. Former smoker, currently in remission Plan: Continue current medical treatment, continue Decadron, empiric antibiotics, Lovenox. Oxygenation worsened on today's vital signs, patient is short of breath, however patient is 2 weeks out from onset of symptoms and out of the window for Remdesivir. We'll continue to closely monitor for worsening hypoxemia. I performed a history & physical examination of the patient and discussed their management with my nurse practitioner, Jami Andrews. I reviewed the nurse practitioner's note and agree with the documented findings and plan of care. Lung sounds are positive for diminished breath sounds at the bases. The find ings and the impression was discussed with the patient. I attest to the documentation by the nurse practitioner. Time with Patient: Less than 30
--- NOTE | 2020-01-23 16:27 | P.PN ---
Subjective Progress Note Date: 01/23/20 Principal diagnosis: Shortness of breath, COVID 19 + Patient was seen and examined. No acute events overnight. Patient continues to report shortness of breath especially with exertion. Breathing slightly worsened from yesterday. Currently on 9L high flow. Objective - Vital Signs Vital signs: Vital Signs Temp 97.4 F L 01/23/20 14:04 Pulse 75 01/23/20 14:04 Resp 20 01/23/20 14:04 BP 115/64 01/23/20 14:04 Pulse Ox 90 L 01/23/20 14:04 Intake & Output 01/22/20 01/23/20 01/23/20 18:59 06:59 18:59 Other: Voiding Method Toilet Toilet Toilet # Voids 2 1 4 - Exam General: [non toxic], [no distress on 9 L high flow], [appears at stated age] Derm: [warm], [dry] Head: [atraumatic], [normocephalic], [symmetric] Eyes: [EOMI], [no lid lag], [anicteric sclera] Mouth: [no lip lesion], [mucus membranes moist] Cardiovascular: [S1S2 reg], [no murmur], [positive DP pulse bilateral], Lungs: [Decreased breath sounds bilateral], [no rhonchi, no rales] , [no accessory muscle use] Abdominal: [soft], [ nontender to palpation], [no guarding], [no appreciable organomegaly] Ext: [no gross muscle atrophy], [no edema], [no contractures] Neuro: [no focal neuro deficits] Psych: [Alert], [oriented], [appropriate affect] - Labs CBC & Chem 7: 01/23/20 07:07 01/22/20 07:31 Labs: Abnormal Lab Results - Last 24 Hours (Table) 01/23/20 01/23/20 Range/Units 07:07 07:07 Lymphocytes # 0.7 L (1.0-4.8) k/uL Lactate Dehydrogenase 1002 H (313-618) U/L Creatine Kinase 173 H (55-170) U/L Microbiology - Last 24 Hours (Table) 01/21/20 17:35 Blood Culture - Preliminary Blood No Growth after 24 hours Assessment and Plan Assessment: Acute hypoxic respiratory failure secondary to COVID 19 pneumonitis Elevated D-Dimer Community-acquired pneumonia Elevated BUN Hypertension Dyslipidemia Chest x-ray shows opacification in the left lung base. Patient is leukopenic. Elevated d-dimer 0.95. Elevated fibrinogen 590 - 608 and LDH to 9825-0068. Rozina vated CRP of 149.6-138.1. Coronavirus testing positive. Plans: Supplemental O2 to maintain O2 saturation greater than 92%. Continue dexamethasone by mouth. Started on IV antibiotics for treatment of pneumonia. Lovenox 80 mg subcutaneous twice a day for elevated d-dimer. Albuterol inhaler as needed for shortness of breath and wheezing. Telemetry monitoring. Follow blood culture. Follow inflammatory labs (CRP, D-Dimer and LDH). Repeat chest x-ray tomorrow. Pulmonology on board. Likely related to coronavirus infection. Management as above. Chest x-ray shows possible left lower lobe infiltrate. Elevated pro-calcitonin. Plans:Continue Rocephin and azithromycin for concerns of community-acquired pneumonia. Follow sputum culture. Likely related to dehydration. Plans: Patient encouraged hydration by mouth. Avoid nephrotoxins. Repeat BMP tomorrow morning. BP 115/64. Plans: Continue amlodipine, lisinopril, triamterene and hydrochlorothiazide. Monitor vitals, adjust medications if necessary. Plans: Continue aspirin and Lipitor. [Patient admitted for COVID 19 pneumonitis with possible superimposed pneumonia. He is on IV antibiotics. Pulmonology on board. He is pending clinical improvement. Open to intubation if necessary.]
[2020-01-23] MEDS: AZITHROMYCIN 500 MG in SODIUM CHLORIDE 0.9% 250 ML IVPB SCH (19:43)
[2020-01-23] MEDS: ASPIRIN 81 MG PO SCH (19:47)
[2020-01-23] MEDS: ATORVASTATIN 20 MG TAB PO SCH (19:47)
[2020-01-23] MEDS: ALPRAZolam 0.5 MG TAB PO PRN (19:53)
[2020-01-23 20:43] LABS: Glucose,Whole Blood 197 mg/dL (75-99)
[2020-01-24] MEDS: SYMBICORT 160-4.5 MCG INHALER INHALATION SCH ×3 (01:21→20:34)
--- NOTE | 2020-01-24 07:22 | XR ---
EXAMINATION TYPE: XR chest 1V portable DATE OF EXAM: 01/24/2020 CLINICAL HISTORY: Difficulty breathing progress study. COVID 19 pneumonia. TECHNIQUE: Single AP portable upright view of the chest is obtained. COMPARISON: Chest x-ray from 3 days earlier FINDINGS: Chronic parenchymal changes bilaterally with worsening peripheral mid to lower lung opacit ies. No pleural effusion or pneumothorax. Silhouetting left heart border is more prominent. Upper adamaris gs remain clear. Cardiac size stable and within normal limits. Osseous structures are intact. IMPRESSION: Chronic changes with worsening peripheral bilateral mid to lower lung areas of acute infi ltrate particularly right lung base.
[2020-01-24] MEDS: amLODIPine 10 MG TAB PO SCH (07:46)
[2020-01-24] MEDS: FAMOTIDINE 20 MG TAB PO SCH (07:46)
[2020-01-24] MEDS: TRIAMTERENE-HCTZ 37.5-25MG 1 EACH TAB PO SCH (07:46)
[2020-01-24] MEDS: lisinopriL 20 MG TAB PO SCH (07:46)
[2020-01-24] MEDS: ENOXAPARIN 80 MG/0.8 ML SYRINGE SQ SCH ×2 (07:46→20:58)
[2020-01-24] MEDS: dexAMETHasone 2 MG TAB PO SCH (07:46)
[2020-01-24] MEDS: ALBUTEROL HFA INHALER INHALATION PRN ×4 (08:06→20:34)
[2020-01-24] MEDS: ALPRAZolam 0.5 MG TAB PO PRN ×2 (08:23→21:23)
[2020-01-24 08:42] LABS: Creatine Kinase 146 U/L (55-170); LDH 1124 U/L (313-618)
[2020-01-24 08:48] LABS: Basophils % (A) 0 %; Eosinophils % (A) 0 %; HCT 43.8 % (39.0-53.0); HGB 14.3 gm/dL (13.0-17.5); Lymphocytes # (A) 0.8 k/uL (1.0-4.8); Lymphocytes % (A) 8 %; MCH 29.5 pg (25.0-35.0); MCHC 32.6 g/dL (31.0-37.0); MCV 90.5 fL (80.0-100.0); Mean Platelet Volume 8.3; Monocytes # (A) 0.9 k/uL (0-1.0); Monocytes % (A) 9 %; Neutrophils # (A) 8.8 k/uL (1.3-7.7); Neutrophils % (A) 81 %; Platelet Count 313 k/uL (150-450); RBC 4.84 m/uL (4.30-5.90); RDW 13.1 % (11.5-15.5); WBC 10.9 k/uL (3.8-10.6)
[2020-01-24 09:16] LABS: ALT 44 U/L (4-49); AST 40 U/L (17-59); African American GFR (CKD) >90 (>60 ml/min/1.73 sqM); Albumin 3.4 g/dL (3.5-5.0); Alkaline Phosphatase 115 U/L (38-126); Anion Gap 8 mmol/L; Blood Urea Nitrogen 30 mg/dL (9-20); Calcium 8.2 mg/dL (8.4-10.2); Carbon Dioxide 24 mmol/L (22-30); Chloride 108 mmol/L (98-107); Glucose 162 mg/dL (74-99); Non-African American GFR(CKD) 84 (>60 ml/min/1.73 sqM); Potassium 4.5 mmol/L (3.5-5.1); Sodium 140 mmol/L (137-145); Total Bilirubin 0.7 mg/dL (0.2-1.3); Total Protein 6.1 g/dL (6.3-8.2)
[2020-01-24 09:50] LABS: Glucose,Whole Blood 175 mg/dL (75-99)
[2020-01-24] MEDS: SODIUM CHLORIDE 0.9% 1,000 ML IV SCH (10:00)
[2020-01-24] MEDS ORDERED: FUROSEMIDE 10 MG/ML 2 ML VIAL IV ONE (10:18)
[2020-01-24] MEDS ORDERED: TOCILIZUMAB 400 MG in SODIUM CHLORIDE 0.9% 80 ML IV ONE ×2 (10:22→23:00)
[2020-01-24 11:39] LABS: Glucose,Whole Blood 163 mg/dL (75-99)
[2020-01-24 11:48] LABS: C Reactive Protein 41.8 mg/L (<10.0)
[2020-01-24] MEDS: INSULIN ASPART (NovoLOG) 100 UNIT/ML VIAL SQ SCH ×3 (11:51→21:24)
--- NOTE | 2020-01-24 12:12 | P.PN ---
Subjective Progress Note Date: 01/24/20 (delayed charting seen at 1015) Principal diagnosis: shortness of breath Patient is a 64-year-old male with a past medical history of hypertension, dyslipidemia, and prior hyperglycemia corrected with weight loss who presented to the emergency department with complaints of shortness of breath. Of note the patient was tested for covid 19 5 days prior to admission and was found to be positive. He presented to the hospital secondary to worsening shortness of breath. On arrival he was relatively hypoxic with a room air pulse ox of 90%. He was also tachypneic with a respiratory rate of 22-28 breaths/m. Initial laboratory analysis showed lymphopenia, sodium 134, ferritin 3005, elevated AST at 94, ALT 80, alkaline phosphatase 165, LDH 1532, CRP 81.9, pro calcitonin 0.23. Parvovirus PCR was positive. D-dimer was elevated at 1.13. Chest x-ray showed a hazy opacification at the left lung base silhouetting of the left heart suggesting lingular involvement. He was diagnosed with Covid 19 pneumonia. He was admitted. He was started on on dexamethasone and pulmonary was consulted. He was also started on Rocephin and Zithromax for possible community-acquired pneumonia. On the morning after admission he was started on Lovenox 80 mg twice daily secondary to his d-dimer being greater than 3 times upper limit of normal. After admission he continued to have increasing oxygenation requirements. On the morning of 01/23 he was satting 90% on 11 L high flow. He was transferred to the ICU and started on ARVO. Infectious disease was consulted, I'll 6 level was ordered, and he was started on Tocilizumab. Patient seen and examined at bedside. He is given an update on his plan of care. He was asked to do oblique pronating. He denies any nausea, vomiting, or current diarrhea. He does report increasing shortness of breath, no chest pain. He is feeling tired. All questions answered. He reports that about 4 years ago he had an elevated hemoglobin A1c and at that point attempted diet and exercise was able to lose weight and never required medications. He states he has not had a problem sugar since then. updated over phone and all questions answered. They're both aware that should he not respond well to high flow nasal cannula that intubation would be the next option. Objective - Vital Signs Vital signs: Vital Signs Temp 97.6 F 01/24/20 07:00 Pulse 73 01/24/20 07:00 Resp 22 01/24/20 07:00 BP 137/77 01/24/20 07:00 Pulse Ox 90 L 01/24/20 10:20 Intake & Output 01/23/20 01/24/20 01/24/20 18:59 06:59 18:59 Output Total 400 Balance -400 Output: Urine 400 Other: Voiding Method Toilet Toilet # Voids 4 1 - Exam General: Ill appearing, mild distress, appears at stated age, obese Derm: warm, dry Head: atraumatic, normocephalic, symmetric Eyes: EOMI, no lid lag, anicteric sclera Mouth: no lip lesion, mucus membranes dry Cardiovascular: S1S2 reg, no murmur, positive posterior tibial pulse bilateral, Lungs: Decreased breath sounds bilaterally with faint wheeze, no accessory muscle use Abdominal: soft, nontender to palpation, no guarding, no appreciable organomeg lanette Ext: no gross muscle atrophy, trace edema, no contractures Neuro: CN II-XI grossly intact, no focal neuro deficits Psych: Alert, oriented, appropriate affect - Labs CBC & Chem 7: 01/24/20 07:49 01/24/20 07:49 Labs: Abnormal Lab Results - Last 24 Hours (Table) 01/23/20 01/24/20 01/24/20 Range/Units 20:40 07:49 07:49 WBC 10.9 H (3.8-10.6) k/uL Neutrophils # 8.8 H (1.3-7.7) k/uL Lymphocytes # 0.8 L (1.0-4.8) k/uL D-Dimer (<0.60) mg/L FEU Chloride (98-107) mmol/L BUN (9-20) mg/dL Glucose (74-99) mg/dL POC Glucose (mg/dL) 197 H (75-99) mg/dL Calcium (8.4-10.2) mg/dL Lactate Dehydrogenase 1124 H (313-618) U/L Total Protein (6.3-8.2) g/dL Albumin (3.5-5.0) g/dL 01/24/20 01/24/20 01/24/20 Range/Units 07:49 07:49 09:49 WBC (3.8-10.6) k/uL Neutrophils # (1.3-7.7) k/uL Lymphocytes # (1.0-4.8) k/uL D-Dimer 0.63 H (<0.60) mg/L FEU Chloride 108 H (98-107) mmol/L BUN 30 H (9-20) mg/dL Glucose 162 H (74-99) mg/dL POC Glucose (mg/dL) 175 H (75-99) mg/dL Calcium 8.2 L (8.4-10.2) mg/dL Lactate Dehydrogenase (313-618) U/L Total Protein 6.1 L (6.3-8.2) g/dL Albumin 3.4 L (3.5-5.0) g/dL Microbiology - Last 24 Hours (Table) 01/21/20 17:35 Blood Culture - Preliminary Blood No Growth after 48 hours Assessment and Plan Assessment: COVID-19 viral pneumonia with acute hypoxic respiratory failure -Patient discussed with pulmonary. Patient ordered for Tocilizumab, ID consulted, IL-6 level ordered - High Flow NC - Awake proning - on zithromax and rocephin for possible CAP will defer to ID - on lovenox dosing per COVID 19 treatment guidelines - repeat Ferritin, LDH, crp D dimer in AM with t Hyperglycemia - likely steroids induced - SSI - check A1C - follow BS Morbid obesity BMI 40.7 - structured outpatient weight loss HTN - Triamterene, HCTZ, lisinopril, norvasc - follow BP Dyslipidemia -Statin DVT prophylaxis: Lovenox Discussed with: Patient, , Dr. Jackson, nursing, respiratory therapy, pharmacy Anticipated discharge: unknown, clinically worsening today Anticipated discharge place: home A total of 75 minutes was spent on the care of this complex patient more than 50% of the time was spent in counseling and care coordination.
--- NOTE | 2020-01-24 12:59 | P.PN ---
Subjective Progress Note Date: 01/24/20 Principal diagnosis: Acute hypoxic or history failure secondary to covid 19 pneumonitis. 64-year-old white male patient of Dr. Arnold, with history of hypertension, hyperlipidemia, former smoker, presented to the emergency department on 01/21/2020 with 2 week history of fevers and patient had been tested for Coronavirus at a testing facility outside of [place], and was found to be positive. Over last to 3 days patient has been increasingly short of breath, complaining of fatigue, headaches, loss of smell and taste, and still having fevers. Patient was also found to be hypoxemic, with a pulse ox of 90-91 on 3 L of oxygen, only low-grade temp of 99.5F on presentation, afebrile during his hospital stay, hemodynamically he is stable, chest x-ray showing hazy asymmetric opacification of the left lung base. EKG showing sinus rhythm with PVCs, was normal EKG. Labs on admission showed CBC within normal limits with the exception of lymphocyte count of 0.9, d-dimer of 1.13, fibrinogen 590, sodium is 135, CO2 is 21, the rest of electrolytes and renal profile were unremarkable, plasma lactic acid was 1.1, AST was 94, ALT was 80, alkaline phosphatase was 165, LDH was 1532, CK was 264, troponin was 0.024, and 0.012. ProBNP was 82. Patient was started on oral Decadron at 6 milligrams daily, prophylactic doses of Lovenox, he is on his home dose of Lipitor, home dose of lisinopril, Triamterene-Hctz. At the time of our evaluation patient is in isolation, and droplet precautions, awake and alert, on 4 L of oxygen his pulse ox is 94%, respirations are nonlabored, short of breath with exertion, afebrile, hemodynamically stable. Denies any worsening shortness of breath, no nausea vomiting abdominal pain or diarrhea, no chest pain. On 01/23/2020 patient seen in follow-up on esophageal medical surgical floor. He is awake and alert, currently on 4 L of oxygen, with a pulse ox of 90, his FiO2 was recently increased to 6 L, and his pulse ox is 90%, he states he is feeling about the same, does not appear to be in any acute distress, but is short of breath at rest and with any exertion. Denies any chest pain or palpitations, no nausea vomiting or diarrhea, no fever or chills. Patient is on empiric antibiotics in the form of azithromycin and ceftriaxone, oral dexamethasone, Lovenox, Pepcid. Lung sounds reveal clear diminished breath sounds at the bases. Today's labs have been reviewed, lymphocyte count is 0.7, normal white count of 7.9, LDH is trending down, down to 1002, and CK is down to 173. Pro-calcitonin was 0.23, and patient is on azithromycin and Rocephin. Reevaluated today on 01/24/20, patient is demonstrating a significant worsening of his pulmonary status over the last 24 hours. Chest x-ray is significantly worse, showing worsening bilateral infiltrates. His O2 saturation is dropping significantly, now he is on high flow with airvo , being titrated to keep O2 saturation above 90%. Hence after evaluating his chest x-ray and his vitals as well as evaluating the patient, recommended transferred to the ICU. CBC is rela tively normal. Platelets are normal. Lymphocytes are low. His markers are about the same LDH is 1124 d-dimer is improved 0.63 from 1.13 on admission. C- reactive protein is improved down to 41.8. Ferritin level is elevated over 3000. Patient is complaining of worsening shortness of breath, and he seems to be more tachypneic compared to yesterday. Again I we have made arrangements for the patient to transfer to ICU, and will possibly start the patient on actimra Objective - Vital Signs Vital signs: Vital Signs Temp 97.6 F 01/24/20 07:00 Pulse 73 01/24/20 07:00 Resp 22 01/24/20 07:00 BP 137/77 01/24/20 07:00 Pulse Ox 90 L 01/24/20 10:20 Intake & Output 01/23/20 01/24/20 01/24/20 18:59 06:59 18:59 Intake Total 580 Output Total 400 610 Balance -400 -30 Intake: IV 180 0.9 100 Tocilizumab 400 mg In 80 Sodium Chloride 0.9% 80 ml @ 100 mls/hr IV ONCE ONE Rx#:[id number] Oral 400 Output: Urine 400 610 Other: Voiding Method Toilet Toilet # Voids 4 1 1 - Exam GENERAL EXAM: Alert, very pleasant, 64 -year-old white male high flow oxygen, in mild respiratory distress. HEENT: Atraumatic, normocephalic, PERRLA, EOMI, no icterus, no neck masses, no JVD. CHEST: No chest wall deformity. Symmetrical expansion. LUNGS: Crackles at the bases. No rhonchi and no wheezes. CVS: Regular rate and rhythm, normal S1 and S2, no gallops, no murmurs, no rubs ABDOMEN: Soft, nontender. No hepatosplenomegaly, normal bowel sounds, no guarding or rigidity. EXTREMITIES: No clubbing, no edema, no cyanosis, 2+ pulses and upper and lower extremities. MUSCULOSKELETAL: Muscle strength and tone normal. SPINE: No scoliosis or deformity SKIN: No rashes CENTRAL NERVOUS SYSTEM: Alert and oriented -3. No focal deficits, tone is normal in all 4 extremities. PSYCHIATRIC: Alert and oriented -3. Appropriate affect. Intact judgment and insight. - Labs CBC & Chem 7: 01/24/20 07:49 01/24/20 07:49 Labs: Abnormal Lab Results - Last 24 Hours (Table) 01/23/20 01/24/20 01/24/20 Range/Units 20:40 07:49 07:49 WBC 10.9 H (3.8-10.6) k/uL Neutrophils # 8.8 H (1.3-7.7) k/uL Lymphocytes # 0.8 L (1.0-4.8) k/uL D-Dimer (<0.60) mg/L FEU Chloride (98-107) mmol/L BUN (9-20) mg/dL Glucose (74-99) mg/dL POC Glucose (mg/dL) 197 H (75-99) mg/dL Calcium (8.4-10.2) mg/dL Lactate Dehydrogenase 1124 H (313-618) U/L C-Reactive Protein (<10.0) mg/L Total Protein (6.3-8.2) g/dL Albumin (3.5-5.0) g/dL 01/24/20 01/24/20 01/24/20 Range/Units 07:49 07:49 09:49 WBC (3.8-10.6) k/uL Neutrophils # (1.3-7.7) k/uL Lymphocytes # (1.0-4.8) k/uL D-Dimer 0.63 H (<0.60) mg/L FEU Chloride 108 H (98-107) mmol/L BUN 30 H (9-20) mg/dL Glucose 162 H (74-99) mg/dL POC Glucose (mg/dL) 175 H (75-99) mg/dL Calcium 8.2 L (8.4-10.2) mg/dL Lactate Dehydrogenase (313-618) U/L C-Reactive Protein 41.8 H (<10.0) mg/L Total Protein 6.1 L (6.3-8.2) g/dL Albumin 3.4 L (3.5-5.0) g/dL 01/24/20 Range/Units 11:37 WBC (3.8-10.6) k/uL Neutrophils # (1.3-7.7) k/uL Lymphocytes # (1.0-4.8) k/uL D-Dimer (<0.60) mg/L FEU Chloride (98-107) mmol/L BUN (9-20) mg/dL Glucose (74-99) mg/dL POC Glucose (mg/dL) 163 H (75-99) mg/dL Calcium (8.4-10.2) mg/dL Lactate Dehydrogenase (313-618) U/L C-Reactive Protein (<10.0) mg/L Total Protein (6.3-8.2) g/dL Albumin (3.5-5.0) g/dL Microbiology - Last 24 Hours (Table) 01/21/20 17:35 Blood Culture - Preliminary Blood No Growth after 48 hours Assessment and Plan Assessment: Impression: Acute hypoxic respiratory failure secondary to acute covid 19 pneumonitis.Patient had onset of symptoms about 2 weeks ago, and his initial testing was +5 days prior to presentation. Acute pneumonitis secondary to covid 19. Lymphopenia with elevated d-dimer elevated fibrinogen LDH and CRP are all elevated. Benign essential hypertension Former smoker, in remission. Recommendation: Considering the patient's clinical status and worsening clinical picture, patient will be transferred to the ICU. Placed on high flow oxygen and titrate accordingly patient was made aware that he may potentially require intubation mechanical ventilation. Continue Decadron. Continue Lovenox. Continue empiric antibiotics. Continue Pepcid. Continue atorvastatin. Consider starting the patient on actimra, ordered interleukin-6 level. Consult infectious disease to evaluate. Patient is presently out of the window for him to severe. A critical care time is 33 minutes Time with Patient: Greater than 30
[2020-01-24 17:01] LABS: Glucose,Whole Blood 197 mg/dL (75-99)
[2020-01-24] MEDS: ASPIRIN 81 MG PO SCH (20:43)
[2020-01-24] MEDS: ATORVASTATIN 20 MG TAB PO SCH (20:44)
[2020-01-24] MEDS: AZITHROMYCIN 500 MG in SODIUM CHLORIDE 0.9% 250 ML IVPB SCH (20:58)
[2020-01-24 21:14] LABS: Glucose,Whole Blood 208 mg/dL (75-99)
--- NOTE | 2020-01-24 23:18 | P.CONS ---
History of Present Illness - Reason for Consult Consult date: 01/24/20 Acute Covid19 infection Requesting physician: Samara Oneil - Chief Complaint Fever 2 weeks and shortness of breath a few days - History of Present Illness Patient is a 64-year-old male that has been sick more than 2 weeks ago symptom has been fever on a daily basis the patient Denies significant headache or URI symptoms initially did have mild dry cough but no significant shortness of breath, with persistent fever patient did have a Covid 19 testing done in ou tpatient setting which came back positive with last few days patient noticed to have increasing shortness of breath on minimal exertion and even at rest patient also have a cough which is motivated intensity but mostly dry in nature unable to bring up any sputum denies having any nausea no vomiting no diarrhea the patient is constipated with the symptoms the patient presented to hospital on 01/21/2020 patient noticed to be hypoxic chest x-ray bilateral infiltrate patient did have elevated CRP normal white count with lymphopenia patient was started on dexamethasone and Lovenox antibiotic when he did yesterday this morning the patient did have worsening of his respiratory status requiring saleem sfer to the ICU and infection it was consulted for further management of antibiotics, patient has been started on Actemra and has received 1 dose this morning, chest x-ray this morning also showing worsening infiltrate bilaterally Review of Systems Positive point has been mentioned in the HPI rest of the systems are negative Past Medical History Past Medical History: Hyperlipidemia, Hypertension Additional Past Medical History / Comment(s): SOB on excertion, kidney stones History of Any Multi-Drug Resistant Organisms: None Reported Past Surgical History: Cholecystectomy Additional Past Surgical History / Comment(s): RK SURGERY ON EYES, SKIN CANCER REMOVED from top of head, vasectomy Past Anesthesia/Blood Transfusion Reactions: No Reported Reaction Past Psychological History: No Psychological Hx Reported Smoking Status: Never smoker Past Alcohol Use History: Rare Past Drug Use History: None Reported - Past Family History Father Family Medical History: Cancer Medications and Allergies Home Medications Medication Instructions Recorded Confirmed Type ALPRAZolam [Xanax] 0.5 mg PO BID PRN 11/23/13 01/21/20 History Aspirin 81 mg PO HS 11/23/13 01/21/20 History Atorvastatin [Lipitor] 20 mg PO HS 11/23/13 01/21/20 History Multivitamin [Men's Multi-Vitamin] 1 tab PO DAILY 11/23/13 01/21/20 History Fish Oil/Dha/Epa [Fish Oil 1,200 1 tab PO BID 11/24/13 01/21/20 History mg Fish Oil] amLODIPine BESYLATE/BENAZEPRIL 1 cap PO DAILY 11/24/13 01/21/20 History [Lotrel 10-40 MG] Triamterene-Hctz 37.5-25Mg 1 tab PO DAILY 08/03/16 01/21/20 History [Maxzide 37.5-25] Cholecalciferol [Vitamin D3 (25 2,000 unit PO DAILY 01/21/20 01/21/20 History Mcg = 1000 Iu)] Allergies Allergy/AdvReac Type Severity Reaction Status Date / Time loratadine [From Claritin] AdvReac dizziness Verified 01/21/20 21:13 Physical Exam Vitals: Vital Signs Temp Pulse Pulse Pulse Resp BP BP 01/24/20 14:30 76 17 125/72 01/24/20 13:30 66 13 127/66 01/24/20 12:30 97.9 F 81 20 140/76 01/24/20 11:30 79 22 134/75 01/24/20 11:00 75 18 144/80 01/24/20 10:30 98.3 F 74 16 144/80 01/24/20 10:20 01/24/20 07:00 97.6 F 73 22 137/77 01/24/20 03:54 18 01/24/20 01:40 01/24/20 01:14 98.1 F 66 18 95/57 01/24/20 00:00 17 01/23/20 22:00 01/23/20 20:00 87 71 17 01/23/20 19:23 97.6 F 87 17 150/72 Pulse Ox 01/24/20 14:30 89 L 01/24/20 13:30 90 L 01/24/20 12:30 92 L 01/24/20 11:30 89 L 01/24/20 11:00 91 L 01/24/20 10:30 90 L 01/24/20 10:20 90 L 01/24/20 07:00 90 L 01/24/20 03:54 01/24/20 01:40 92 L 01/24/20 01:14 90 L 01/24/20 00:00 01/23/20 22:00 90 L 01/23/20 20:00 01/23/20 19:23 92 L Intake and Output 01/24/20 01/24/20 01/24/20 06:59 14:59 22:59 Intake Total 580 Output Total 610 Balance -30 Intake: IV 180 0.9 100 Tocilizumab 400 mg In 80 Sodium Chloride 0.9% 80 ml @ 100 mls/hr IV ONCE ONE Rx#:[id number] Oral 400 Output: Urine 610 Other: Voiding Method Urinal # Voids 1 1 GENERAL DESCRIPTION: Middle-aged male lying in bed, no distress. No tachypnea or accessory muscle of respiration use. HEENT: Shows Pallor , no scleral icterus. Oral mucous membrane is dry. No pharyngeal erythema or thrush NECK: Trachea central, no thyromegaly. LUNGS: Unlabored breathing. Decreased breath sounds at the base No wheeze or crackle. HEART: S1, S2, regular rate and rhythm. No loud murmur ABDOMEN: Soft, no tenderness , guarding or rigidity, no organomegaly EXTREMITIES: No edema of feet. SKIN: No rash, no masses palpable. NEUROLOGICAL: The patient is awake, alert, oriented x3, mood and affect normal. Results CBC & Chem 7: 01/24/20 07:49 01/24/20 07:49 Labs: Abnormal Lab Results - Last 24 Hours (Table) 01/23/20 01/24/20 01/24/20 Range/Units 20:40 07:49 07:49 WBC 10.9 H (3.8-10.6) k/uL Neutrophils # 8.8 H (1.3-7.7) k/uL Lymphocytes # 0.8 L (1.0-4.8) k/uL D-Dimer (<0.60) mg/L FEU Chloride (98-107) mmol/L BUN (9-20) mg/dL Glucose (74-99) mg/dL POC Glucose (mg/dL) 197 H (75-99) mg/dL Calcium (8.4-10.2) mg/dL Lactate Dehydrogenase 1124 H (313-618) U/L C-Reactive Protein (<10.0) mg/L Total Protein (6.3-8.2) g/dL Albumin (3.5-5.0) g/dL 01/24/20 01/24/20 01/24/20 Range/Units 07:49 07:49 09:49 WBC (3.8-10.6) k/uL Neutrophils # (1.3-7.7) k/uL Lymphocytes # (1.0-4.8) k/uL D-Dimer 0.63 H (<0.60) mg/L FEU Chloride 108 H (98-107) mmol/L BUN 30 H (9-20) mg/dL Glucose 162 H (74-99) mg/dL POC Glucose (mg/dL) 175 H (75-99) mg/dL Calcium 8.2 L (8.4-10.2) mg/dL Lactate Dehydrogenase (313-618) U/L C-Reactive Protein 41.8 H (<10.0) mg/L Total Protein 6.1 L (6.3-8.2) g/dL Albumin 3.4 L (3.5-5.0) g/dL 01/24/20 Range/Units 11:37 WBC (3.8-10.6) k/uL Neutrophils # (1.3-7.7) k/uL Lymphocytes # (1.0-4.8) k/uL D-Dimer (<0.60) mg/L FEU Chloride (98-107) mmol/L BUN (9-20) mg/dL Glucose (74-99) mg/dL POC Glucose (mg/dL) 163 H (75-99) mg/dL Calcium (8.4-10.2) mg/dL Lactate Dehydrogenase (313-618) U/L C-Reactive Protein (<10.0) mg/L Total Protein (6.3-8.2) g/dL Albumin (3.5-5.0) g/dL Microbiology - Last 24 Hours (Table) 01/21/20 17:35 Blood Culture - Preliminary Blood No Growth after 48 hours Assessment and Plan Assessment: 1- patient presented to hospital with increasing shortness of breath in this patient who has been sick for almost 2 weeks before he presented to the hospital with fever increase in shortness of breath dry cough and did have evidence of bilateral infiltrate and outpatient diagnosis of covid19 , now with worsening of his respiratory status over the last 48 hours and the patient has been in the hospital with a question of possible progression to the cytokines fiordaliza 2- patient did have elevated pro calcitonin which is not common with viral pneumonia underlying component of bacterial pneumonia not entirely excluded (1) Pneumonia due to COVID-19 virus Current Visit: Yes Status: Acute Code(s): U07.1 - COVID-19; J12.89 - OTHER VIRAL PNEUMONIA SNOMED Code(s): 774542801 Plan: 1- patient to continue with Actemra with a repeat was ordered for tonight 2- as per discussion with the pharmacy department patient is out of the window have any benefit from Redemsivir and patient currently does not qualify for institution pharmacy 3- continue with dexamethasone and Lovenox 4- we will obtain sputum for Gram stain and culture 5- continue with Rocephin and Zithromax in view of elevated Procalcitonin We will follow on clinical condition and cultures to further adjust medication if needed Thank you for this consultation will follow this patient with you Time with Patient: Greater than 30
[2020-01-25 06:14] LABS: Basophils # (A) 0.1 k/uL (0-0.2); Basophils % (A) 1 %; Eosinophils % (A) 0 %; HGB 15.1 gm/dL (13.0-17.5); Lymphocytes # (A) 0.9 k/uL (1.0-4.8); Lymphocytes % (A) 11 %; MCHC 33.6 g/dL (31.0-37.0); MCV 89.4 fL (80.0-100.0); Mean Platelet Volume 7.4; Monocytes # (A) 0.7 k/uL (0-1.0); Monocytes % (A) 9 %; Neutrophils % (A) 75 %; Platelet Count 349 k/uL (150-450); RBC 5.04 m/uL (4.30-5.90); RDW 13.1 % (11.5-15.5)
[2020-01-25 06:29] LABS: ALT 42 U/L (4-49); AST 37 U/L (17-59); African American GFR (CKD) >90 (>60 ml/min/1.73 sqM); Albumin 3.4 g/dL (3.5-5.0); Alkaline Phosphatase 114 U/L (38-126); Anion Gap 10 mmol/L; Blood Urea Nitrogen 32 mg/dL (9-20); C Reactive Protein 33.4 mg/L (<10.0); Calcium 8.4 mg/dL (8.4-10.2); Carbon Dioxide 22 mmol/L (22-30); Chloride 107 mmol/L (98-107); Creatine Kinase 89 U/L (55-170); Glucose 171 mg/dL (74-99); LDH 1084 U/L (313-618); Non-African American GFR(CKD) >90 (>60 ml/min/1.73 sqM); Potassium 4.3 mmol/L (3.5-5.1); Sodium 139 mmol/L (137-145); Total Bilirubin 0.7 mg/dL (0.2-1.3); Total Protein 6.2 g/dL (6.3-8.2)
[2020-01-25 06:42] LABS: Glucose,Whole Blood 166 mg/dL (75-99)
[2020-01-25] MEDS: INSULIN ASPART (NovoLOG) 100 UNIT/ML VIAL SQ SCH ×4 (06:50→21:11)
--- NOTE | 2020-01-25 07:16 | XR ---
EXAMINATION TYPE: XR chest 1V portable DATE OF EXAM: 01/25/2020 COMPARISON: 01/24/2020 HISTORY: Pneumonia TECHNIQUE: Single frontal view of the chest is obtained. FINDINGS: Bilateral areas of patchy infiltrate noted. There is no pleural effusion or pneumothorax. Underlying COPD noted. Heart size stable. Heart is prominent in size. IMPRESSION: 1. Bilateral patchy infiltrate is stable
[2020-01-25] MEDS: ENOXAPARIN 80 MG/0.8 ML SYRINGE SQ SCH ×2 (08:08→20:43)
[2020-01-25] MEDS: FAMOTIDINE 20 MG TAB PO SCH (08:10)
[2020-01-25] MEDS: lisinopriL 20 MG TAB PO SCH (08:10)
[2020-01-25] MEDS: dexAMETHasone 2 MG TAB PO SCH (08:10)
[2020-01-25] MEDS: TRIAMTERENE-HCTZ 37.5-25MG 1 EACH TAB PO SCH (08:10)
[2020-01-25] MEDS: amLODIPine 10 MG TAB PO SCH (08:10)
[2020-01-25] MEDS: ALBUTEROL HFA INHALER INHALATION PRN ×3 (08:46→19:27)
[2020-01-25] MEDS: SYMBICORT 160-4.5 MCG INHALER INHALATION SCH ×2 (08:46→19:28)
[2020-01-25] MEDS: SODIUM CHLORIDE 0.9% 1,000 ML IV SCH (08:49)
[2020-01-25 11:59] LABS: Glucose,Whole Blood 147 mg/dL (75-99)
[2020-01-25 12:29] LABS: Hemoglobin A1C 6.8 % (4.0-6.0)
[2020-01-25 12:43] LABS: Ferritin 3118.4 ng/mL (22.0-322.0)
--- NOTE | 2020-01-25 12:44 | P.PN ---
Subjective Progress Note Date: 01/25/20 Principal diagnosis: Acute hypoxic or history failure secondary to covid 19 pneumonitis. 64-year-old white male patient of Dr. Arnold, with history of hypertension, hyperlipidemia, former smoker, presented to the emergency department on 01/21/2020 with 2 week history of fevers and patient had been tested for Coronavirus at a testing facility outside of [place], and was found to be positive. Over last to 3 days patient has been increasingly short of breath, complaining of fatigue, headaches, loss of smell and taste, and still having fevers. Patient was also found to be hypoxemic, with a pulse ox of 90-91 on 3 L of oxygen, only low-grade temp of 99.5F on presentation, afebrile during his hospital stay, hemodynamically he is stable, chest x-ray showing hazy asymmetric opacification of the left lung base. EKG showing sinus rhythm with PVCs, was normal EKG. Labs on admission showed CBC within normal limits with the exception of lymphocyte count of 0.9, d-dimer of 1.13, fibrinogen 590, sodium is 135, CO2 is 21, the rest of electrolytes and renal profile were unremarkable, plasma lactic acid was 1.1, AST was 94, ALT was 80, alkaline phosphatase was 165, LDH was 1532, CK was 264, troponin was 0.024, and 0.012. ProBNP was 82. Patient was started on oral Decadron at 6 milligrams daily, prophylactic doses of Lovenox, he is on his home dose of Lipitor, home dose of lisinopril, Triamterene-Hctz. At the time of our evaluation patient is in isolation, and droplet precautions, awake and alert, on 4 L of oxygen his pulse ox is 94%, respirations are nonlabored, short of breath with exertion, afebrile, hemodynamically stable. Denies any worsening shortness of breath, no nausea vomiting abdominal pain or diarrhea, no chest pain. On 01/23/2020 patient seen in follow-up on esophageal medical surgical floor. He is awake and alert, currently on 4 L of oxygen, with a pulse ox of 90, his FiO2 was recently increased to 6 L, and his pulse ox is 90%, he states he is feeling about the same, does not appear to be in any acute distress, but is short of breath at rest and with any exertion. Denies any chest pain or palpitations, no nausea vomiting or diarrhea, no fever or chills. Patient is on empiric antibiotics in the form of azithromycin and ceftriaxone, oral dexamethasone, Lovenox, Pepcid. Lung sounds reveal clear diminished breath sounds at the bases. Today's labs have been reviewed, lymphocyte count is 0.7, normal white count of 7.9, LDH is trending down, down to 1002, and CK is down to 173. Pro-calcitonin was 0.23, and patient is on azithromycin and Rocephin. Reevaluated today on 01/24/20, patient is demonstrating a significant worsening of his pulmonary status over the last 24 hours. Chest x-ray is significantly worse, showing worsening bilateral infiltrates. His O2 saturation is dropping significantly, now he is on high flow with airvo , being titrated to keep O2 saturation above 90%. Hence after evaluating his chest x-ray and his vitals as well as evaluating the patient, recommended transferred to the ICU. CBC is rela tively normal. Platelets are normal. Lymphocytes are low. His markers are about the same LDH is 1124 d-dimer is improved 0.63 from 1.13 on admission. C- reactive protein is improved down to 41.8. Ferritin level is elevated over 3000. Patient is complaining of worsening shortness of breath, and he seems to be more tachypneic compared to yesterday. Again I we have made arrangements for the patient to transfer to ICU, and will possibly start the patient on actimra Patient was reevaluated today on 01/25/20, patient is doing about the same. Remains in the ICU, he is receiving Zithromax, Rocephin, Decadron, already received 2 doses of actemra, on Pepcid, on atorvastatin, IV fluid is at 75 mL/h, patient is on airvo at 85% FiO2, and 60 L/m flow. O2 saturation is 93%. Patient tells me that his feeling a bit better compared to yesterday. Has intermittent cough, no wheezing, chest x-ray continues to show bilateral bibasilar infiltrates. Inflammatory markers are improving. Interleukin-6 level is pending. Patient was seen by infectious disease on consultation, and no changes were suggested. Objective - Vital Signs Vital signs: Vital Signs Temp 97.7 F 01/25/20 08:00 Pulse 72 07/23/20 11:00 Resp 18 01/25/20 11:00 BP 129/71 01/25/20 11:00 Pulse Ox 90 L 01/25/20 11:00 Intake & Output 01/24/20 01/25/20 01/25/20 18:59 06:59 18:59 Intake Total 880 1250 615 Output Total 1760 900 375 Balance -880 350 240 Weight 135.4 kg Intake: IV 480 600 265 0.9 400 270 40 Azithromycin 500 mg In 250 Sodium Chloride 0.9% 250 ml @ 250 mls/hr IVPB Q24H [facility] Rx#:[id number] Sodium Chloride 0.9% 1, 225 000 ml @ 75 mls/hr IV . [id number] [facility] Rx#:[id number] Tocilizumab 400 mg In 80 80 Sodium Chloride 0.9% 80 ml @ 100 mls/hr IV ONCE ONE Rx#:[id number] Intake, IV Titration 50 Amount cefTRIAXone 1 gm In 50 Sodium Chloride 0.9% 50 ml @ 100 mls/hr IVPB Q24H [facility] Rx#:[id number] Oral 400 600 350 Output: Urine 1760 900 375 Other: Voiding Method Urinal Urinal Urinal # Voids 1 0 0 - Exam GENERAL EXAM: Alert, very pleasant, 64 -year-old white male high flow oxygen, in no distress HEENT: Atraumatic, normocephalic, PERRLA, EOMI, no icterus, no neck masses, no JVD. CHEST: No chest wall deformity. Symmetrical expansion. LUNGS: Crackles at the bases. No rhonchi and no wheezes. CVS: Regular rate and rhythm, normal S1 and S2, no gallops, no murmurs, no rubs ABDOMEN: Soft, nontender. No hepatosplenomegaly, normal bowel sounds, no guarding or rigidity. EXTREMITIES: No clubbing, no edema, no cyanosis, 2+ pulses and upper and lower extremities. MUSCULOSKELETAL: Muscle strength and tone normal. SPINE: No scoliosis or deformity SKIN: No rashes CENTRAL NERVOUS SYSTEM: Alert and oriented -3. No focal deficits, tone is normal in all 4 extremities. PSYCHIATRIC: Alert and oriented -3. Appropriate affect. Intact judgment and insight. - Labs CBC & Chem 7: 01/25/20 05:51 01/25/20 05:51 Labs: Abnormal Lab Results - Last 24 Hours (Table) 01/24/20 01/24/20 01/25/20 Range/Units 16:59 21:13 05:51 Lymphocytes # (1.0-4.8) k/uL D-Dimer (<0.60) mg/L FEU BUN (9-20) mg/dL Glucose (74-99) mg/dL POC Glucose (mg/dL) 197 H 208 H (75-99) mg/dL Hemoglobin A1c 6.8 H (4.0-6.0) % Lactate Dehydrogenase (313-618) U/L C-Reactive Protein (<10.0) mg/L Total Protein (6.3-8.2) g/dL Albumin (3.5-5.0) g/dL Procalcitonin (0.02-0.09) ng/mL 01/25/20 01/25/20 01/25/20 Range/Units 05:51 05:51 05:51 Lymphocytes # 0.9 L (1.0-4.8) k/uL D-Dimer 0.60 H (<0.60) mg/L FEU BUN 32 H (9-20) mg/dL Glucose 171 H (74-99) mg/dL POC Glucose (mg/dL) (75-99) mg/dL Hemoglobin A1c (4.0-6.0) % Lactate Dehydrogenase 1084 H (313-618) U/L C-Reactive Protein 33.4 H (<10.0) mg/L Total Protein 6.2 L (6.3-8.2) g/dL Albumin 3.4 L (3.5-5.0) g/dL Procalcitonin (0.02-0.09) ng/mL 01/25/20 01/25/20 01/25/20 Range/Units 05:51 06:41 11:57 Lymphocytes # (1.0-4.8) k/uL D-Dimer (<0.60) mg/L FEU BUN (9-20) mg/dL Glucose (74-99) mg/dL POC Glucose (mg/dL) 166 H 147 H (75-99) mg/dL Hemoglobin A1c (4.0-6.0) % Lactate Dehydrogenase (313-618) U/L C-Reactive Protein (<10.0) mg/L Total Protein (6.3-8.2) g/dL Albumin (3.5-5.0) g/dL Procalcitonin 0.11 H (0.02-0.09) ng/mL Microbiology - Last 24 Hours (Table) 01/21/20 17:35 Blood Culture - Preliminary Blood No Growth after 72 hours Assessment and Plan Assessment: Impression: Acute hypoxic respiratory failure secondary to acute covid 19 pneumonitis.Patient had onset of symptoms about 2 weeks ago, and his initial testing was +5 days prior to presentation. Acute pneumonitis secondary to covid 19. Lymphopenia with elevated d-dimer elevated fibrinogen LDH and CRP are all elevated. But improving and trending down. Benign essential hypertension Former smoker, in remission. Recommendation: Continue to monitor in the ICU. Continue high flow O2. Continue Decadron. Continue Lovenox. Continue empiric antibiotics. Continue Pepcid. Continue atorvastatin. Received 2 courses of actemra critical care time is 31 minutes Time with Patient: Greater than 30
--- NOTE | 2020-01-25 12:49 | P.PN ---
Subjective Progress Note Date: 01/25/20 Principal diagnosis: shortness of breath Patient is a 64-year-old male with a past medical history of hypertension, dyslipidemia, and prior hyperglycemia corrected with weight loss who presented to the emergency department with complaints of shortness of breath. Of note the patient was tested for covid 19 5 days prior to admission and was found to be positive. He presented to the hospital secondary to worsening shortness of breath. On arrival he was relatively hypoxic with a room air pulse ox of 90%. He was also tachypneic with a respiratory rate of 22-28 breaths/m. Initial laboratory analysis showed lymphopenia, sodium 134, ferritin 3005, elevated AST at 94, ALT 80, alkaline phosphatase 165, LDH 1532, CRP 81.9, pro calcitonin 0.23. Parvovirus PCR was positive. D-dimer was elevated at 1.13. Chest x-ray showed a hazy opacification at the left lung base silhouetting of the left heart suggesting lingular involvement. He was diagnosed with Covid 19 pneumonia. He was admitted. He was started on on dexamethasone and pulmonary was consulted. He was also started on Rocephin and Zithromax for possible community-acquired pneumonia. On the morning after admission he was started on Lovenox 80 mg twice daily secondary to his d-dimer being greater than 3 times upper limit of normal. After admission he continued to have increasing oxygenation requirements. On the morning of 01/23 he was satting 90% on 11 L high flow. He was transferred to the ICU and started on AIRVO. Infectious disease was consulted, IL6 level was ordered, and he was started on Tocilizumab first dose 01/23. Patient seen and examined at bedside. He is feeling less winded than yesterday. No chest pain, slight cough, still felling weak and tired. No nausea, no vomiting, no diarrhea. Discussed again trying to spend time in chair, on sided or ideally prone positioning. updated over phone and all questions answered. Objective - Vital Signs Vital signs: Vital Signs Temp 97.7 F 01/25/20 08:00 Pulse 72 01/25/20 11:00 Resp 18 01/25/20 11:00 BP 129/71 01/25/20 11:00 Pulse Ox 90 L 01/25/20 11:00 Intake & Output 01/24/20 01/25/20 01/25/20 18:59 06:59 18:59 Intake Total 880 1250 615 Output Total 1760 900 375 Balance -880 350 240 Weight 135.4 kg Intake: IV 480 600 265 0.9 400 270 40 Azithromycin 500 mg In 250 Sodium Chloride 0.9% 250 ml @ 250 mls/hr IVPB Q24H [facility] Rx#:[id number] Sodium Chloride 0.9% 1, 225 000 ml @ 75 mls/hr IV . [id number] [facility] Rx#:[id number] Tocilizumab 400 mg In 80 80 Sodium Chloride 0.9% 80 ml @ 100 mls/hr IV ONCE ONE Rx#:[id number] Intake, IV Titration 50 Amount cefTRIAXone 1 gm In 50 Sodium Chloride 0.9% 50 ml @ 100 mls/hr IVPB Q24H [facility] Rx#:[id number] Oral 400 600 350 Output: Urine 1760 900 375 Other: Voiding Method Urinal Urinal Urinal # Voids 1 0 0 - Exam General: Ill appearing, mild distress, appears at stated age, obese Derm: warm, dry Head: atraumatic, normocephalic, symmetric Eyes: EOMI, no lid lag, anicteric sclera Mouth: no lip lesion, mucus membranes dry Cardiovascular: S1S2 reg, no murmur, positive posterior tibial pulse bilateral, Lungs: Crackles bilateral bases, no accessory muscle use Abdominal: soft, nontender to palpation, no guarding, no appreciable organomegaly Ext: no gross muscle atrophy, trace edema, no contractures Neuro: CN II-XI grossly intact, no focal neuro deficits Psych: Alert, oriented, appropriate affect - Labs CBC & Chem 7: 01/25/20 05:51 01/25/20 05:51 Labs: Abnormal Lab Results - Last 24 Hours (Table) 01/24/20 01/24/20 01/24/20 Range/Units 07:49 11:37 16:59 Lymphocytes # (1.0-4.8) k/uL D-Dimer (<0.60) mg/L FEU BUN (9-20) mg/dL Glucose (74-99) mg/dL POC Glucose (mg/dL) 163 H 197 H (75-99) mg/dL Lactate Dehydrogenase (313-618) U/L C-Reactive Protein 41.8 H (<10.0) mg/L Total Protein (6.3-8.2) g/dL Albumin (3.5-5.0) g/dL 01/24/20 01/25/20 01/25/20 Range/Units 21:13 05:51 05:51 Lymphocytes # 0.9 L (1.0-4.8) k/uL D-Dimer (<0.60) mg/L FEU BUN 32 H (9-20) mg/dL Glucose 171 H (74-99) mg/dL POC Glucose (mg/dL) 208 H (75-99) mg/dL Lactate Dehydrogenase 1084 H (313-618) U/L C-Reactive Protein 33.4 H (<10.0) mg/L Total Protein 6.2 L (6.3-8.2) g/dL Albumin 3.4 L (3.5-5.0) g/dL 01/25/20 01/25/20 Range/Units 05:51 06:41 Lymphocytes # (1.0-4.8) k/uL D-Dimer 0.60 H (<0.60) mg/L FEU BUN (9-20) mg/dL Glucose (74-99) mg/dL POC Glucose (mg/dL) 166 H (75-99) mg/dL Lactate Dehydrogenase (313-618) U/L C-Reactive Protein (<10.0) mg/L Total Protein (6.3-8.2) g/dL Albumin (3.5-5.0) g/dL Microbiology - Last 24 Hours (Table) 01/21/20 17:35 Blood Culture - Preliminary Blood No Growth after 72 hours Assessment and Plan Assessment: COVID-19 viral pneumonia with acute hypoxic respiratory failure - pulm recs - Tocilizumab 01/23 and 01/24 - ID recs appreciated - IL-6 level pending - High Flow NC - Awake proning - on zithromax and rocephin for possible CAP will defer to ID - on lovenox dosing per pulmonary - repeat Ferritin, LDH, crp D dimer in AM with t Hyperglycemia, with diabetes - add levemir - SSI - A1C 6.8, diet control on discharge - follow BS Morbid obesity BMI 40.7 - structured outpatient weight loss HTN - Triamterene, HCTZ, lisinopril, norvasc - follow BP Dyslipidemia -Statin DVT prophylaxis: Lovenox Discussed with: Patient, , nursing, Anticipated discharge: 5-[address]: home A total of 35 minutes was spent on the care of this complex patient more than 50% of the time was spent in counseling and care coordination.
[2020-01-25 17:31] LABS: Glucose,Whole Blood 194 mg/dL (75-99)
[2020-01-25] MEDS: ASPIRIN 81 MG PO SCH (20:43)
[2020-01-25] MEDS: ATORVASTATIN 20 MG TAB PO SCH (20:43)
[2020-01-25] MEDS: AZITHROMYCIN 500 MG in SODIUM CHLORIDE 0.9% 250 ML IVPB SCH (20:44)
[2020-01-25] MEDS: INSULIN DETEMIR (LEVEMIR) 100 UNIT/ML SYR SQ SCH (20:45)
[2020-01-25 20:58] LABS: Glucose,Whole Blood 186 mg/dL (75-99)
[2020-01-25] MEDS: ALPRAZolam 0.5 MG TAB PO PRN (22:35)
--- NOTE | 2020-01-26 00:45 | PN ---
PROGRESS NOTE DATE OF SERVICE: 01/25/2020 REASON FOR FOLLOWUP: 1. Acute COVID-19 pneumonia. 2. Possible bacterial pneumonia. INTERVAL HISTORY: The patient is currently afebrile. The patient is hemodynamically stable. The patient is requiring high-flow oxygen nasal cannula. No vomiting. No diarrhea or any other changes reported. PHYSICAL EXAMINATION: Blood pressure 125/73 with a pulse of 77, temperature of 98. He is 90% on high-flow oxygen. General description is a middle-aged male lying in bed in no distress. RESPIRATORY SYSTEM: Unlabored breathing, per previous exam. EXTREMITIES: No edema of the feet. LABS: Hemoglobin 15.1, white count 8.0, BUN of 32, creatinine 0.88, and LDH slightly decreased to 1084. CRP is down to 33. Procalcitonin elevated. DIAGNOSTIC IMPRESSION AND PLAN: Patient with acute respiratory failure which is multifactorial in this patient with acute COVID-19 pneumonia with elevated procalcitonin, possible secondary bacterial pneumonia not entirely excluded. Patient is currently covered with Rocephin, Zithromax, dexamethasone and Lovenox and has received 2 doses of Actemra to continue and to monitor his clinical course closely. MMODL / IJN: [id number] /
[2020-01-26] MEDS: SODIUM CHLORIDE 0.9% 1,000 ML IV SCH ×2 (03:01→13:21)
[2020-01-26 05:12] LABS: Basophils # (A) 0.1 k/uL (0-0.2); Basophils % (A) 1 %; Eosinophils % (A) 0 %; HCT 41.6 % (39.0-53.0); HGB 13.6 gm/dL (13.0-17.5); Lymphocytes # (A) 0.9 k/uL (1.0-4.8); Lymphocytes % (A) 11 %; MCH 28.9 pg (25.0-35.0); MCHC 32.6 g/dL (31.0-37.0); MCV 88.6 fL (80.0-100.0); Monocytes # (A) 0.7 k/uL (0-1.0); Monocytes % (A) 8 %; Neutrophils # (A) 6.3 k/uL (1.3-7.7); Neutrophils % (A) 77 %; Platelet Count 357 k/uL (150-450); RDW 13.1 % (11.5-15.5); WBC 8.2 k/uL (3.8-10.6)
[2020-01-26 05:21] LABS: ALT 50 U/L (4-49); AST 38 U/L (17-59); African American GFR (CKD) >90 (>60 ml/min/1.73 sqM); Albumin 3.1 g/dL (3.5-5.0); Alkaline Phosphatase 102 U/L (38-126); Anion Gap 6 mmol/L; Blood Urea Nitrogen 31 mg/dL (9-20); Calcium 8.3 mg/dL (8.4-10.2); Carbon Dioxide 23 mmol/L (22-30); Chloride 108 mmol/L (98-107); Glucose 173 mg/dL (74-99); Non-African American GFR(CKD) >90 (>60 ml/min/1.73 sqM); Potassium 4.8 mmol/L (3.5-5.1); Sodium 137 mmol/L (137-145); Total Bilirubin 0.6 mg/dL (0.2-1.3); Total Protein 5.6 g/dL (6.3-8.2)
[2020-01-26 06:53] LABS: Glucose,Whole Blood 146 mg/dL (75-99)
[2020-01-26] MEDS: INSULIN ASPART (NovoLOG) 100 UNIT/ML VIAL SQ SCH ×4 (07:07→21:42)
--- NOTE | 2020-01-26 07:56 | XR ---
EXAMINATION TYPE: XR chest 1V portable DATE OF EXAM: 01/26/2020 Comparison: 01/25/2020 Clinical History: 64-year-old male SOB Findings: Heart upper limits of normal in size. Peripheral mid and lower lung airspace opacities persist withou t significant change. Upper lungs are relatively clear. No sizable effusion. Impression: Continued peripheral mid and lower lung airspace disease. Multifocal infectious/aspiration pneumonia, atypical/COVID pneumonias, and interstitial pneumonitis are some differential considerations.
[2020-01-26] MEDS: TRIAMTERENE-HCTZ 37.5-25MG 1 EACH TAB PO SCH (08:28)
[2020-01-26] MEDS: dexAMETHasone 2 MG TAB PO SCH (08:28)
[2020-01-26] MEDS: lisinopriL 20 MG TAB PO SCH (08:29)
[2020-01-26] MEDS: FAMOTIDINE 20 MG TAB PO SCH (08:29)
[2020-01-26] MEDS: amLODIPine 10 MG TAB PO SCH (08:29)
[2020-01-26] MEDS: ENOXAPARIN 80 MG/0.8 ML SYRINGE SQ SCH ×2 (08:29→21:27)
[2020-01-26] MEDS: ALBUTEROL HFA INHALER INHALATION PRN ×4 (08:43→19:08)
[2020-01-26] MEDS: SYMBICORT 160-4.5 MCG INHALER INHALATION SCH ×2 (08:44→19:08)
[2020-01-26 12:55] LABS: Glucose,Whole Blood 169 mg/dL (75-99)
--- NOTE | 2020-01-26 13:26 | P.PN ---
Subjective Progress Note Date: 01/26/20 Principal diagnosis: Acute hypoxic or history failure secondary to covid 19 pneumonitis. 64-year-old white male patient of Dr. Arnold, with history of hypertension, hyperlipidemia, former smoker, presented to the emergency department on 01/21/2020 with 2 week history of fevers and patient had been tested for Coronavirus at a testing facility outside of [place], and was found to be positive. Over last to 3 days patient has been increasingly short of breath, complaining of fatigue, headaches, loss of smell and taste, and still having fevers. Patient was also found to be hypoxemic, with a pulse ox of 90-91 on 3 L of oxygen, only low-grade temp of 99.5F on presentation, afebrile during his hospital stay, hemodynamically he is stable, chest x-ray showing hazy asymmetric opacification of the left lung base. EKG showing sinus rhythm with PVCs, was normal EKG. Labs on admission showed CBC within normal limits with the exception of lymphocyte count of 0.9, d-dimer of 1.13, fibrinogen 590, sodium is 135, CO2 is 21, the rest of electrolytes and renal profile were unremarkable, plasma lactic acid was 1.1, AST was 94, ALT was 80, alkaline phosphatase was 165, LDH was 1532, CK was 264, troponin was 0.024, and 0.012. ProBNP was 82. Patient was started on oral Decadron at 6 milligrams daily, prophylactic doses of Lovenox, he is on his home dose of Lipitor, home dose of lisinopril, Triamterene-Hctz. At the time of our evaluation patient is in isolation, and droplet precautions, awake and alert, on 4 L of oxygen his pulse ox is 94%, respirations are nonlabored, short of breath with exertion, afebrile, hemodynamically stable. Denies any worsening shortness of breath, no nausea vomiting abdominal pain or diarrhea, no chest pain. On 01/23/2020 patient seen in follow-up on esophageal medical surgical floor. He is awake and alert, currently on 4 L of oxygen, with a pulse ox of 90, his FiO2 was recently increased to 6 L, and his pulse ox is 90%, he states he is feeling about the same, does not appear to be in any acute distress, but is short of breath at rest and with any exertion. Denies any chest pain or palpitations, no nausea vomiting or diarrhea, no fever or chills. Patient is on empiric antibiotics in the form of azithromycin and ceftriaxone, oral dexamethasone, Lovenox, Pepcid. Lung sounds reveal clear diminished breath sounds at the bases. Today's labs have been reviewed, lymphocyte count is 0.7, normal white count of 7.9, LDH is trending down, down to 1002, and CK is down to 173. Pro-calcitonin was 0.23, and patient is on azithromycin and Rocephin. Reevaluated today on 01/24/20, patient is demonstrating a significant worsening of his pulmonary status over the last 24 hours. Chest x-ray is significantly worse, showing worsening bilateral infiltrates. His O2 saturation is dropping significantly, now he is on high flow with airvo , being titrated to keep O2 saturation above 90%. Hence after evaluating his chest x-ray and his vitals as well as evaluating the patient, recommended transferred to the ICU. CBC is rela tively normal. Platelets are normal. Lymphocytes are low. His markers are about the same LDH is 1124 d-dimer is improved 0.63 from 1.13 on admission. C- reactive protein is improved down to 41.8. Ferritin level is elevated over 3000. Patient is complaining of worsening shortness of breath, and he seems to be more tachypneic compared to yesterday. Again I we have made arrangements for the patient to transfer to ICU, and will possibly start the patient on actimra Patient was reevaluated today on 01/25/20, patient is doing about the same. Remains in the ICU, he is receiving Zithromax, Rocephin, Decadron, already received 2 doses of actemra, on Pepcid, on atorvastatin, IV fluid is at 75 mL/h, patient is on airvo at 85% FiO2, and 60 L/m flow. O2 saturation is 93%. Patient tells me that his feeling a bit better compared to yesterday. Has intermittent cough, no wheezing, chest x-ray continues to show bilateral bibasilar infiltrates. Inflammatory markers are improving. Interleukin-6 level is pending. Patient was seen by infectious disease on consultation, and no changes were suggested. Patient was reevaluated today on 01/26/20, remains in the ICU, remains on Decadron Rocephin and Zithromax, patient remains on high flow oxygen FiO2 85% and 60 L/m flow utilizing airvo. Patient tells me that he is feeling a bit better breathing easier, clinically he is basically about the same. No cough no wheezing no fever no chills no hemoptysis. C-reactive protein is down to 11. And his d-dimer today is 0.76. Patient remains on Lovenox 80 mg subcu twice a day Objective - Vital Signs Vital signs: Vital Signs Temp 97.8 F 01/26/20 13:00 Pulse 72 01/26/20 13:00 Resp 26 H 01/26/20 13:00 BP 91/53 01/26/20 13:00 Pulse Ox 83 L 01/26/20 13:00 Intake & Output 01/25/20 01/26/20 01/26/20 18:59 06:59 18:59 Intake Total 1340 1200 525 Output Total 1555 1200 450 Balance -215 0 75 Intake: IV 790 1200 525 0.9 40 Azithromycin 500 mg In 250 Sodium Chloride 0.9% 250 ml @ 250 mls/hr IVPB Q24H [facility] Rx#:[id number] Sodium Chloride 0.9% 1, 750 900 525 000 ml @ 75 mls/hr IV . [id number] [facility] Rx#:[id number] cefTRIAXone 1 gm In 50 Sodium Chloride 0.9% 50 ml @ 100 mls/hr IVPB Q24H [facility] Rx#:[id number] Oral 550 Output: Urine 1555 1200 450 Other: Voiding Method Urinal Urinal Urinal # Voids 1 0 - Exam GENERAL EXAM: Alert, very pleasant, 64 -year-old white male high flow oxygen, in no distress HEENT: Atraumatic, normocephalic, PERRLA, EOMI, no icterus, no neck masses, no JVD. CHEST: No chest wall deformity. Symmetrical expansion. LUNGS: Crackles at the bases. No rhonchi and no wheezes. CVS: Regular rate and rhythm, normal S1 and S2, no gallops, no murmurs, no rubs ABDOMEN: Soft, nontender. No hepatosplenomegaly, normal bowel sounds, no guarding or rigidity. EXTREMITIES: No clubbing, no edema, no cyanosis, 2+ pulses and upper and lower extremities. MUSCULOSKELETAL: Muscle strength and tone normal. SPINE: No scoliosis or deformity SKIN: No rashes CENTRAL NERVOUS SYSTEM: Alert and oriented -3. No focal deficits, tone is no rmal in all 4 extremities. PSYCHIATRIC: Alert and oriented -3. Appropriate affect. Intact judgment and insight. - Labs CBC & Chem 7: 01/26/20 04:29 01/26/20 04:29 Labs: Abnormal Lab Results - Last 24 Hours (Table) 01/24/20 01/25/20 01/25/20 Range/Units 07:49 17:28 20:56 Lymphocytes # (1.0-4.8) k/uL D-Dimer (<0.60) mg/L FEU Chloride (98-107) mmol/L BUN (9-20) mg/dL Glucose (74-99) mg/dL POC Glucose (mg/dL) 194 H 186 H (75-99) mg/dL Calcium (8.4-10.2) mg/dL ALT (4-49) U/L C-Reactive Protein (<10.0) mg/L Total Protein (6.3-8.2) g/dL Albumin (3.5-5.0) g/dL Interleukin 6 22.2 H (<=5) pg/mL 01/26/20 01/26/20 01/26/20 Range/Units 04:29 04:29 06:51 Lymphocytes # 0.9 L (1.0-4.8) k/uL D-Dimer (<0.60) mg/L FEU Chloride 108 H (98-107) mmol/L BUN 31 H (9-20) mg/dL Glucose 173 H (74-99) mg/dL POC Glucose (mg/dL) 146 H (75-99) mg/dL Calcium 8.3 L (8.4-10.2) mg/dL ALT 50 H (4-49) U/L C-Reactive Protein (<10.0) mg/L Total Protein 5.6 L (6.3-8.2) g/dL Albumin 3.1 L (3.5-5.0) g/dL Interleukin 6 (<=5) pg/mL 01/26/20 01/26/20 01/26/20 Range/Units 12:20 12:21 12:52 Lymphocytes # (1.0-4.8) k/uL D-Dimer 0.76 H (<0.60) mg/L FEU Chloride (98-107) mmol/L BUN (9-20) mg/dL Glucose (74-99) mg/dL POC Glucose (mg/dL) 169 H (75-99) mg/dL Calcium (8.4-10.2) mg/dL ALT (4-49) U/L C-Reactive Protein 11.0 H (<10.0) mg/L Total Protein (6.3-8.2) g/dL Albumin (3.5-5.0) g/dL Interleukin 6 (<=5) pg/mL Microbiology - Last 24 Hours (Table) 01/21/20 17:35 Blood Culture - Preliminary Blood No Growth after 96 hours 01/24/20 10:42 Blood Culture - Preliminary Blood No Growth after 24 hours 01/24/20 10:42 Blood Culture - Preliminary Blood No Growth after 24 hours Assessment and Plan Assessment: Impression: Acute hypoxic respiratory failure secondary to acute covid 19 pneumonitis. Acute pneumonitis secondary to covid 19. Lymphopenia with elevated d-dimer elevated fibrinogen LDH and CRP improving. Benign essential hypertension Former smoker, in remission. Recommendation: Continue to monitor in the ICU. Continue high flow O2. Continue Decadron. Continue Lovenox. Continue empiric antibiotics. Continue Pepcid. Continue atorvastatin. Received 2 courses of actemra We will continue to follow. Time with Patient: Less than 30
--- NOTE | 2020-01-26 15:18 | P.PN ---
Subjective Progress Note Date: 01/26/20 (delayd charting seen at 1155) Principal diagnosis: shortness of breath Patient is a 64-year-old male with a past medical history of hypertension, dyslipidemia, and prior hyperglycemia corrected with weight loss who presented to the emergency department with complaints of shortness of breath. Of note the patient was tested for covid 19 5 days prior to admission and was found to be positive. He presented to the hospital secondary to worsening shortness of breath. On arrival he was relatively hypoxic with a room air pulse ox of 90%. He was also tachypneic with a respiratory rate of 22-28 breaths/m. Initial laboratory analysis showed lymphopenia, sodium 134, ferritin 3005, elevated AST at 94, ALT 80, alkaline phosphatase 165, LDH 1532, CRP 81.9, pro calcitonin 0.23. Parvovirus PCR was positive. D-dimer was elevated at 1.13. Chest x-ray showed a hazy opacification at the left lung base silhouetting of the left heart suggesting lingular involvement. He was diagnosed with Covid 19 pneumonia. He was admitted. He was started on on dexamethasone and pulmonary was consulted. He was also started on Rocephin and Zithromax for possible community-acquired pneumonia. On the morning after admission he was started on Lovenox 80 mg twice daily secondary to his d-dimer being greater than 3 times upper limit of normal. After admission he continued to have increasing oxygenation requirements. On the morning of 01/23 he was satting 90% on 11 L high flow. He was transferred to the ICU and started on AIRVO. Infectious disease was consulted, IL6 level was ordered, and he was started on Tocilizumab first dose 01/23 and second on 01/24. Mild improvement in oxygenation on 01/25. A1C 6.8 on 01/25 and plan is for dietary modification as outpatient. Patient seen and examined at bedside. He is feeling much better after he started playing different sites and bed, still feels winded when trying to get up and use the urinal, no nausea, no vomiting, no diarrhea. Still with loss of sense of taste and low appetite. We discussed that his A1c is 6.8 and that he is diabetic, but could be controlled on oral medications, and weight loss. We discussed that he will need to be checking his blood sugars regularly on discharge home. We also discussed that prior to consideration of discharge he will need to be off of high flow nasal cannula and on traditional nasal cannula. updated over phone and all questions answered. Objective - Vital Signs Vital signs: Vital Signs Temp 97.8 F 01/26/20 13:00 Pulse 53 L 01/26/20 14:00 Resp 19 01/26/20 14:00 BP 116/62 01/26/20 14:00 Pulse Ox 96 01/26/20 14:00 Intake & Output 01/25/20 01/26/20 01/26/20 18:59 06:59 18:59 Intake Total 1340 1200 600 Output Total 1555 1200 450 Balance -215 0 150 Intake: IV 790 1200 600 0.9 40 Azithromycin 500 mg In 250 Sodium Chloride 0.9% 250 ml @ 250 mls/hr IVPB Q24H [facility] Rx#:[id number] Sodium Chloride 0.9% 1, 750 900 600 000 ml @ 75 mls/hr IV . [id number] [facility] Rx#:[id number] cefTRIAXone 1 gm In 50 Sodium Chloride 0.9% 50 ml @ 100 mls/hr IVPB Q24H [facility] Rx#:[id number] Oral 550 Output: Urine 1555 1200 450 Other: Voiding Method Urinal Urinal Urinal # Voids 1 0 - Exam General: Ill appearing, no distress, appears at stated age, obese Derm: warm, dry Head: atraumatic, normocephalic, symmetric Eyes: EOMI, no lid lag, anicteric sclera Mouth: no lip lesion, mucus membranes dry Cardiovascular: S1S2 reg, no murmur, positive posterior tibial pulse bilateral, Lungs: Decreased bs bilateral bases, no accessory muscle use Abdominal: soft, nontender to palpation, no guarding, no appreciable organomegaly Ext: no gross muscle atrophy, trace edema, no contractures Neuro: CN II-XI grossly intact, no focal neuro deficits Psych: Alert, oriented, appropriate affect - Labs CBC & Chem 7: 01/26/20 04:29 01/26/20 04:29 Labs: Abnormal Lab Results - Last 24 Hours (Table) 01/25/20 01/25/20 01/26/20 Range/Units 17:28 20:56 04:29 Lymphocytes # (1.0-4.8) k/uL D-Dimer (<0.60) mg/L FEU Chloride 108 H (98-107) mmol/L BUN 31 H (9-20) mg/dL Glucose 173 H (74-99) mg/dL POC Glucose (mg/dL) 194 H 186 H (75-99) mg/dL Calcium 8.3 L (8.4-10.2) mg/dL ALT 50 H (4-49) U/L C-Reactive Protein (<10.0) mg/L Total Protein 5.6 L (6.3-8.2) g/dL Albumin 3.1 L (3.5-5.0) g/dL 01/26/20 01/26/20 01/26/20 Range/Units 04:29 06:51 12:20 Lymphocytes # 0.9 L (1.0-4.8) k/uL D-Dimer (<0.60) mg/L FEU Chloride (98-107) mmol/L BUN (9-20) mg/dL Glucose (74-99) mg/dL POC Glucose (mg/dL) 146 H (75-99) mg/dL Calcium (8.4-10.2) mg/dL ALT (4-49) U/L C-Reactive Protein 11.0 H (<10.0) mg/L Total Protein (6.3-8.2) g/dL Albumin (3.5-5.0) g/dL 01/26/20 01/26/20 Range/Units 12:21 12:52 Lymphocytes # (1.0-4.8) k/uL D-Dimer 0.76 H (<0.60) mg/L FEU Chloride (98-107) mmol/L BUN (9-20) mg/dL Glucose (74-99) mg/dL POC Glucose (mg/dL) 169 H (75-99) mg/dL Calcium (8.4-10.2) mg/dL ALT (4-49) U/L C-Reactive Protein (<10.0) mg/L Total Protein (6.3-8.2) g/dL Albumin (3.5-5.0) g/dL Microbiology - Last 24 Hours (Table) 01/24/20 10:42 Blood Culture - Preliminary Blood No Growth after 48 hours 01/24/20 10:42 Blood Culture - Preliminary Blood No Growth after 48 hours 01/21/20 17:35 Blood Culture - Preliminary Blood No Growth after 96 hours Assessment and Plan Assessment: COVID-19 viral pneumonia with acute hypoxic respiratory failure - pulm recs - Tocilizumab 01/23 and 01/24 - ID recs appreciated - IL-6 level elevated - High Flow NC - Awake proning - on zithromax and rocephin for possible CAP per ID - on lovenox dosing per pulmonary - repeat Ferritin, LDH, crp D dimer in AM Hyperglycemia, with diabetes - levemir - SSI - A1C 6.8, diet control on discharge, will need glucometer - follow BS Morbid obesity BMI 40.7 - structured outpatient weight loss HTN - Triamterene, HCTZ, lisinopril, norvasc - follow BP Dyslipidemia -Statin DVT prophylaxis: Lovenox Discussed with: Patient, , nursing, Anticipated discharge: 4-[address]: home A total of 35 minutes was spent on the care of this complex patient more than 50% of the time was spent in counseling and care coordination.
--- NOTE | 2020-01-26 16:56 | P.PN ---
Subjective Progress Note Date: 01/26/20 Principal diagnosis: Covid 19 pneumonia Patient is a 64-year-old male presenting to the ER with chief complaints of fever of 2 weeks along with increasing shortness of breath and cough in this patient who was diagnosed with COVID19 infection 5 days prior to presentation to the hospital patient was initially on the floor and was treated medically subsequently did have a worsening respiratory distress and has to be transferred out of the ICU, patient was out of the window of treatment with Redemsivir however did receive 2 doses of Actimera on 01/24/2020 On today's evaluation that is 01/26/2020, the patient denies having any fever or any chills, the patient is breathing more comfortably, oxygen requirement has slightly decreased, denies having any chest pain, minimal cough no nausea no vomiting no abdominal pain and no diarrhea Objective - Vital Signs Vital signs: Vital Signs Temp 97.8 F 01/26/20 13:00 Pulse 69 01/26/20 15:00 Resp 17 01/26/20 15:00 BP 107/61 01/26/20 15:00 Pulse Ox 94 L 01/26/20 15:00 Intake & Output 01/25/20 01/26/20 01/26/20 18:59 06:59 18:59 Intake Total 1340 1200 675 Output Total 1555 1200 800 Balance -215 0 -125 Intake: IV 790 1200 675 0.9 40 Azithromycin 500 mg In 250 Sodium Chloride 0.9% 250 ml @ 250 mls/hr IVPB Q24H [facility] Rx#:[id number] Sodium Chloride 0.9% 1, 750 900 675 000 ml @ 75 mls/hr IV . [id number] [facility] Rx#:[id number] cefTRIAXone 1 gm In 50 Sodium Chloride 0.9% 50 ml @ 100 mls/hr IVPB Q24H [facility] Rx#:[id number] Oral 550 Output: Urine 1555 1200 800 Other: Voiding Method Urinal Urinal Urinal # Voids 1 0 - Exam GENERAL DESCRIPTION:[ Patient is awake and alert in no distress] HEENT: [Oral mucosa is dry and no pharyngeal erythema] EYES : [No pallor or scleral icterus] RESPIRATORY SYSTEM: [Unlabored breathing decreased breath sound the bases CARDIA VASCULAR SYSTEM: [S1-S2 regular rate and rhythm no murmur] GI: [Abdominal soft there's no tenderness no organomegaly] EXTREMITIES: [No edema feet] - Labs CBC & Chem 7: 01/26/20 04:29 01/26/20 04:29 Labs: Abnormal Lab Results - Last 24 Hours (Table) 01/25/20 01/25/20 01/26/20 Range/Units 17:28 20:56 04:29 Lymphocytes # (1.0-4.8) k/uL D-Dimer (<0.60) mg/L FEU Chloride 108 H (98-107) mmol/L BUN 31 H (9-20) mg/dL Glucose 173 H (74-99) mg/dL POC Glucose (mg/dL) 194 H 186 H (75-99) mg/dL Calcium 8.3 L (8.4-10.2) mg/dL ALT 50 H (4-49) U/L C-Reactive Protein (<10.0) mg/L Total Protein 5.6 L (6.3-8.2) g/dL Albumin 3.1 L (3.5-5.0) g/dL 01/26/20 01/26/20 01/26/20 Range/Units 04:29 06:51 12:20 Lymphocytes # 0.9 L (1.0-4.8) k/uL D-Dimer (<0.60) mg/L FEU Chloride (98-107) mmol/L BUN (9-20) mg/dL Glucose (74-99) mg/dL POC Glucose (mg/dL) 146 H (75-99) mg/dL Calcium (8.4-10.2) mg/dL ALT (4-49) U/L C-Reactive Protein 11.0 H (<10.0) mg/L Total Protein (6.3-8.2) g/dL Albumin (3.5-5.0) g/dL 01/26/20 01/26/20 Range/Units 12:21 12:52 Lymphocytes # (1.0-4.8) k/uL D-Dimer 0.76 H (<0.60) mg/L FEU Chloride (98-107) mmol/L BUN (9-20) mg/dL Glucose (74-99) mg/dL POC Glucose (mg/dL) 169 H (75-99) mg/dL Calcium (8.4-10.2) mg/dL ALT (4-49) U/L C-Reactive Protein (<10.0) mg/L Total Protein (6.3-8.2) g/dL Albumin (3.5-5.0) g/dL Microbiology - Last 24 Hours (Table) 01/24/20 10:42 Blood Culture - Preliminary Blood No Growth after 48 hours 01/24/20 10:42 Blood Culture - Preliminary Blood No Growth after 48 hours 01/21/20 17:35 Blood Culture - Preliminary Blood No Growth after 96 hours Assessment and Plan Assessment: 1- patient presented to hospital with increasing shortness of breath in this patient who has been sick for almost 2 weeks before he presented to the hospital with fever increase in shortness of breath dry cough and did have evidence of bilateral infiltrate and outpatient diagnosis of covid19 , now with worsening of his respiratory status over the last 48 hours and the patient has been in the hospital with a question of possible progression to the cytokines fiordaliza for the patient has received Actemra and seems to have shown clinical response 2- patient did have elevated pro calcitonin which is not common with viral pneumonia underlying component of bacterial pneumonia not entirely excluded (1) Pneumonia due to COVID-19 virus Current Visit: Yes Status: Acute Code(s): U07.1 - COVID-19; J12.89 - OTHER VIRAL PNEUMONIA SNOMED Code(s): 009103073 Plan: 1- patient to continue with with dexamethasone and Lovenox 2- we will again request for sputum for Gram stain and culture 3- continue with Rocephin and Zithromax in view of elevated Procalcitonin Continue with droplet isolation and respiratory support Time with Patient: Less than 30
[2020-01-26 17:16] LABS: Glucose,Whole Blood 178 mg/dL (75-99)
[2020-01-26] MEDS: SODIUM CHLORIDE 0.45% 1,000 ML IV SCH (17:29)
[2020-01-26] MEDS: ATORVASTATIN 20 MG TAB PO SCH (21:27)
[2020-01-26] MEDS: ASPIRIN 81 MG PO SCH (21:27)
[2020-01-26] MEDS: AZITHROMYCIN 500 MG in SODIUM CHLORIDE 0.9% 250 ML IVPB SCH (21:28)
[2020-01-26] MEDS: INSULIN DETEMIR (LEVEMIR) 100 UNIT/ML SYR SQ SCH (21:43)
[2020-01-26 21:48] LABS: Glucose,Whole Blood 199 mg/dL (75-99)
[2020-01-26] MEDS: ALPRAZolam 0.5 MG TAB PO PRN (22:33)
[2020-01-27] MEDS: SODIUM CHLORIDE 0.45% 1,000 ML IV SCH ×2 (05:00→21:34)
[2020-01-27 05:45] LABS: Basophils # (A) 0.1 k/uL (0-0.2); Basophils % (A) 1 %; Eosinophils % (A) 0 %; HCT 44.7 % (39.0-53.0); HGB 14.8 gm/dL (13.0-17.5); Lymphocytes # (A) 1.1 k/uL (1.0-4.8); Lymphocytes % (A) 11 %; MCH 29.2 pg (25.0-35.0); MCHC 33.2 g/dL (31.0-37.0); Mean Platelet Volume 7.7; Monocytes # (A) 0.8 k/uL (0-1.0); Monocytes % (A) 8 %; Neutrophils # (A) 7.8 k/uL (1.3-7.7); Neutrophils % (A) 78 %; Platelet Count 431 k/uL (150-450); RBC 5.08 m/uL (4.30-5.90); RDW 12.7 % (11.5-15.5); WBC 10.1 k/uL (3.8-10.6)
[2020-01-27 06:17] LABS: ALT 55 U/L (4-49); AST 36 U/L (17-59); African American GFR (CKD) >90 (>60 ml/min/1.73 sqM); Albumin 3.3 g/dL (3.5-5.0); Alkaline Phosphatase 103 U/L (38-126); Anion Gap 7 mmol/L; Blood Urea Nitrogen 30 mg/dL (9-20); Calcium 8.5 mg/dL (8.4-10.2); Carbon Dioxide 21 mmol/L (22-30); Chloride 107 mmol/L (98-107); Creatine Kinase 66 U/L (55-170); Glucose 154 mg/dL (74-99); LDH 1001 U/L (313-618); Non-African American GFR(CKD) >90 (>60 ml/min/1.73 sqM); Potassium 4.7 mmol/L (3.5-5.1); Sodium 135 mmol/L (137-145); Total Bilirubin 0.9 mg/dL (0.2-1.3); Total Protein 5.9 g/dL (6.3-8.2)
[2020-01-27 07:05] LABS: Glucose,Whole Blood 148 mg/dL (75-99)
[2020-01-27] MEDS: INSULIN ASPART (NovoLOG) 100 UNIT/ML VIAL SQ SCH ×4 (07:11→21:10)
--- NOTE | 2020-01-27 07:21 | XR ---
EXAMINATION TYPE: XR chest 1V portable DATE OF EXAM: 01/27/2020 HISTORY: COVID. REFERENCE: Previous study dated 01/26/2020. FINDINGS: A new, radiopaque density projects over the left heart border. I'm uncertain as to the etio logy of this. Heart remains normal in size. There is patchy bilateral infiltrates, worse on the right than the left . No definite pleural fluid is seen. IMPRESSION: 1. CONTINUING BILATERAL INFILTRATES. 2. NEW RADIOPAQUE OPACITY PROJECTING OVER THE LEFT HEART.
[2020-01-27] MEDS: FAMOTIDINE 20 MG TAB PO SCH (08:21)
[2020-01-27] MEDS: dexAMETHasone 2 MG TAB PO SCH (08:21)
[2020-01-27] MEDS: lisinopriL 20 MG TAB PO SCH (08:21)
[2020-01-27] MEDS: TRIAMTERENE-HCTZ 37.5-25MG 1 EACH TAB PO SCH (08:21)
[2020-01-27] MEDS: amLODIPine 10 MG TAB PO SCH (08:22)
[2020-01-27] MEDS: ENOXAPARIN 80 MG/0.8 ML SYRINGE SQ SCH ×2 (08:22→21:11)
[2020-01-27] MEDS: SYMBICORT 160-4.5 MCG INHALER INHALATION SCH ×2 (08:47→20:07)
[2020-01-27] MEDS: ALBUTEROL HFA INHALER INHALATION PRN ×2 (08:47→12:46)
[2020-01-27 11:38] LABS: Glucose,Whole Blood 163 mg/dL (75-99)
--- NOTE | 2020-01-27 11:47 | P.PN ---
Subjective Progress Note Date: 01/27/20 Principal diagnosis: Acute hypoxic or history failure secondary to covid 19 pneumonitis. 64-year-old white male patient of Dr. Arnold, with history of hypertension, hyperlipidemia, former smoker, presented to the emergency department on 01/21/2020 with 2 week history of fevers and patient had been tested for Coronavirus at a testing facility outside of [place], and was found to be positive. Over last to 3 days patient has been increasingly short of breath, complaining of fatigue, headaches, loss of smell and taste, and still having fevers. Patient was also found to be hypoxemic, with a pulse ox of 90-91 on 3 L of oxygen, only low-grade temp of 99.5F on presentation, afebrile during his hospital stay, hemodynamically he is stable, chest x-ray showing hazy asymmetric opacification of the left lung base. EKG showing sinus rhythm with PVCs, was normal EKG. Labs on admission showed CBC within normal limits with the exception of lymphocyte count of 0.9, d-dimer of 1.13, fibrinogen 590, sodium is 135, CO2 is 21, the rest of electrolytes and renal profile were unremarkable, plasma lactic acid was 1.1, AST was 94, ALT was 80, alkaline phosphatase was 165, LDH was 1532, CK was 264, troponin was 0.024, and 0.012. ProBNP was 82. Patient was started on oral Decadron at 6 milligrams daily, prophylactic doses of Lovenox, he is on his home dose of Lipitor, home dose of lisinopril, Triamterene-Hctz. At the time of our evaluation patient is in isolation, and droplet precautions, awake and alert, on 4 L of oxygen his pulse ox is 94%, respirations are nonlabored, short of breath with exertion, afebrile, hemodynamically stable. Denies any worsening shortness of breath, no nausea vomiting abdominal pain or diarrhea, no chest pain. On 01/23/2020 patient seen in follow-up on esophageal medical surgical floor. He is awake and alert, currently on 4 L of oxygen, with a pulse ox of 90, his FiO2 was recently increased to 6 L, and his pulse ox is 90%, he states he is feeling about the same, does not appear to be in any acute distress, but is short of breath at rest and with any exertion. Denies any chest pain or palpitations, no nausea vomiting or diarrhea, no fever or chills. Patient is on empiric antibiotics in the form of azithromycin and ceftriaxone, oral dexamethasone, Lovenox, Pepcid. Lung sounds reveal clear diminished breath sounds at the bases. Today's labs have been reviewed, lymphocyte count is 0.7, normal white count of 7.9, LDH is trending down, down to 1002, and CK is down to 173. Pro-calcitonin was 0.23, and patient is on azithromycin and Rocephin. Reevaluated today on 01/24/20, patient is demonstrating a significant worsening of his pulmonary status over the last 24 hours. Chest x-ray is significantly worse, showing worsening bilateral infiltrates. His O2 saturation is dropping significantly, now he is on high flow with airvo , being titrated to keep O2 saturation above 90%. Hence after evaluating his chest x-ray and his vitals as well as evaluating the patient, recommended transferred to the ICU. CBC is rela tively normal. Platelets are normal. Lymphocytes are low. His markers are about the same LDH is 1124 d-dimer is improved 0.63 from 1.13 on admission. C- reactive protein is improved down to 41.8. Ferritin level is elevated over 3000. Patient is complaining of worsening shortness of breath, and he seems to be more tachypneic compared to yesterday. Again I we have made arrangements for the patient to transfer to ICU, and will possibly start the patient on actimra Patient was reevaluated today on 01/25/20, patient is doing about the same. Remains in the ICU, he is receiving Zithromax, Rocephin, Decadron, already received 2 doses of actemra, on Pepcid, on atorvastatin, IV fluid is at 75 mL/h, patient is on airvo at 85% FiO2, and 60 L/m flow. O2 saturation is 93%. Patient tells me that his feeling a bit better compared to yesterday. Has intermittent cough, no wheezing, chest x-ray continues to show bilateral bibasilar infiltrates. Inflammatory markers are improving. Interleukin-6 level is pending. Patient was seen by infectious disease on consultation, and no changes were suggested. Patient was reevaluated today on 01/26/20, remains in the ICU, remains on Decadron Rocephin and Zithromax, patient remains on high flow oxygen FiO2 85% and 60 L/m flow utilizing airvo. Patient tells me that he is feeling a bit better breathing easier, clinically he is basically about the same. No cough no wheezing no fever no chills no hemoptysis. C-reactive protein is down to 11. And his d-dimer today is 0.76. Patient remains on Lovenox 80 mg subcu twice a day Patient was reevaluated today on 01/27/20, remains in the intensive care unit, remains on high flow oxygen, patient is feeling a bit better. He is on 70% FiO2 and 60 L flow. IV fluid is D5 45 at 75 ML per hour. Patient had a chest x-ray today, and showed possibly slight worsening of his infiltrates bilaterally. But clinically the patient is feeling better. Labs reviewed today seem to be unremarkable. Objective - Vital Signs Vital signs: Vital Signs Temp 98.2 F 01/27/20 04:00 Pulse 47 L 01/27/20 10:00 Resp 18 01/27/20 10:00 BP 125/73 01/27/20 10:00 Pulse Ox 96 01/27/20 10:00 Intake & Output 01/26/20 01/27/20 01/27/20 18:59 06:59 18:59 Intake Total 900 975 225 Output Total 1050 900 Balance -150 75 225 Intake: IV 900 750 Sodium Chloride 0.9% 1, 900 750 000 ml @ 75 mls/hr IV . [id number] [facility] Rx#:[id number] Intake, IV Titration 225 225 Amount Sodium Chloride 0.45% 1, 225 225 000 ml @ 75 mls/hr IV . [id number] [facility] Rx#:[id number] Output: Urine 1050 900 Other: Voiding Method Urinal Urinal Urinal # Voids 1 - Exam GENERAL EXAM: Patient was not examined today due to covered 19 pneumonitis. However patient was evaluated through the door of his room, and he seems to be in no distress, Denied any specific complaints. And felt that he was doing much better compared to the last few days. - Labs CBC & Chem 7: 01/27/20 05:04 01/27/20 05:04 Labs: Abnormal Lab Results - Last 24 Hours (Table) 01/26/20 01/26/2020 Range/Units 12:20 12:21 12:52 Neutrophils # (1.3-7.7) k/uL D-Dimer 0.76 H (<0.60) mg/L FEU Sodium (137-145) mmol/L Carbon Dioxide (22-30) mmol/L BUN (9-20) mg/dL Glucose (74-99) mg/dL POC Glucose (mg/dL) 169 H (75-99) mg/dL ALT (4-49) U/L Lactate Dehydrogenase (313-618) U/L C-Reactive Protein 11.0 H (<10.0) mg/L Total Protein (6.3-8.2) g/dL Albumin (3.5-5.0) g/dL 01/26/20 01/26/20 01/27/20 Range/Units 17:14 21:37 05:04 Neutrophils # (1.3-7.7) k/uL D-Dimer (<0.60) mg/L FEU Sodium 135 L (137-145) mmol/L Carbon Dioxide 21 L (22-30) mmol/L BUN 30 H (9-20) mg/dL Glucose 154 H (74-99) mg/dL POC Glucose (mg/dL) 178 H 199 H (75-99) mg/dL ALT 55 H (4-49) U/L Lactate Dehydrogenase 1001 H (313-618) U/L C-Reactive Protein (<10.0) mg/L Total Protein 5.9 L (6.3-8.2) g/dL Albumin 3.3 L (3.5-5.0) g/dL 01/27/20 01/27/20 01/27/20 Range/Units 05:04 05:04 06:53 Neutrophils # 7.8 H (1.3-7.7) k/uL D-Dimer 0.69 H (<0.60) mg/L FEU Sodium (137-145) mmol/L Carbon Dioxide (22-30) mmol/L BUN (9-20) mg/dL Glucose (74-99) mg/dL POC Glucose (mg/dL) 148 H (75-99) mg/dL ALT (4-49) U/L Lactate Dehydrogenase (313-618) U/L C-Reactive Protein (<10.0) mg/L Total Protein (6.3-8.2) g/dL Albumin (3.5-5.0) g/dL 01/27/20 Range/Units 11:37 Neutrophils # (1.3-7.7) k/uL D-Dimer (<0.60) mg/L FEU Sodium (137-145) mmol/L Carbon Dioxide (22-30) mmol/L BUN (9-20) mg/dL Glucose (74-99) mg/dL POC Glucose (mg/dL) 163 H (75-99) mg/dL ALT (4-49) U/L Lactate Dehydrogenase (313-618) U/L C-Reactive Protein (<10.0) mg/L Total Protein (6.3-8.2) g/dL Albumin (3.5-5.0) g/dL Microbiology - Last 24 Hours (Table) 01/21/20 17:35 Blood Culture - Preliminary Blood No Growth after 120 hours 01/24/20 10:42 Blood Culture - Preliminary Blood No Growth after 48 hours 01/24/20 10:42 Blood Culture - Preliminary Blood No Growth after 48 hours Assessment and Plan Assessment: Impression: Acute hypoxic respiratory failure secondary to acute covid 19 pneumonitis. Acute pneumonitis secondary to covid 19. Lymphopenia with elevated d-dimer elevated fibrinogen LDH and CRP improving. Benign essential hypertension Former smoker, in remission. Recommendation: Continue to monitor in the ICU. Continue high flow O2. Titrate accordingly. Continue Decadron. Continue Lovenox. Continue empiric antibiotics. Continue Pepcid. Continue atorvastatin. Received 2 courses of actemra We will continue to follow. Time with Patient: Less than 30
[2020-01-27 11:56] LABS: Ferritin 2303.4 ng/mL (22.0-322.0)
--- NOTE | 2020-01-27 12:44 | P.PN ---
Subjective Progress Note Date: 01/27/20 Principal diagnosis: shortness of breath Patient is a 64-year-old male with a past medical history of hypertension, dyslipidemia, and prior hyperglycemia corrected with weight loss who presented to the emergency department with complaints of shortness of breath. Of note the patient was tested for covid 19 5 days prior to admission and was found to be positive. He presented to the hospital secondary to worsening shortness of breath. On arrival he was relatively hypoxic with a room air pulse ox of 90%. He was also tachypneic with a respiratory rate of 22-28 breaths/m. Initial laboratory analysis showed lymphopenia, sodium 134, ferritin 3005, elevated AST at 94, ALT 80, alkaline phosphatase 165, LDH 1532, CRP 81.9, pro calcitonin 0.23. Parvovirus PCR was positive. D-dimer was elevated at 1.13. Chest x-ray showed a hazy opacification at the left lung base silhouetting of the left heart suggesting lingular involvement. He was diagnosed with Covid 19 pneumonia. He was admitted. He was started on on dexamethasone and pulmonary was consulted. He was also started on Rocephin and Zithromax for possible community-acquired pneumonia. On the morning after admission he was started on Lovenox 80 mg twice daily secondary to his d-dimer being greater than 3 times upper limit of normal. After admission he continued to have increasing oxygenation requirements. On the morning of 01/23 he was satting 90% on 11 L high flow. He was transferred to the ICU and started on AIRVO. Infectious disease was consulted, IL6 level was ordered, and he was started on Tocilizumab first dose 01/23 and second on 01/24. Mild improvement in oxygenation on 01/25 and 01/26. A1C 6.8 on 01/25 and plan is for dietary modification as outpatient. Patient seen and examined at bedside. He is doing well today. Breathing easier, coughing less, no chest pain, no nausea. + BM today updated over phone and all questions answered at 1230 Objective - Vital Signs Vital signs: Vital Signs Temp 97.3 F L 01/27/20 12:00 Pulse 68 01/27/20 12:00 Resp 17 01/27/20 12:00 BP 122/93 01/27/20 12:00 Pulse Ox 90 L 01/27/20 12:00 Intake & Output 01/26/20 01/27/20 01/27/20 18:59 06:59 18:59 Intake Total 900 975 300 Output Total 1050 900 Balance -150 75 300 Intake: IV 900 750 Sodium Chloride 0.9% 1, 900 750 000 ml @ 75 mls/hr IV . [id number] [facility] Rx#:[id number] Intake, IV Titration 225 300 Amount Sodium Chloride 0.45% 1, 225 300 000 ml @ 75 mls/hr IV . [id number] [facility] Rx#:[id number] Output: Urine 1050 900 Other: Voiding Method Urinal Urinal Urinal # Voids 1 1 # Bowel Movements 1 - Exam General: Ill appearing, no distress, appears at stated age, obese Derm: warm, dry Head: atraumatic, normocephalic, symmetric Eyes: EOMI, no lid lag, anicteric sclera Mouth: no lip lesion, mucus membranes moist Cardiovascular: S1S2 reg, no murmur, positive posterior tibial pulse bilateral, Lungs: Decreased bs bilateral bases, no accessory muscle use Abdominal: soft, nontender to palpation, no guarding, no appreciable organomegaly Ext: no gross muscle atrophy, trace edema, no contractures Neuro: CN II-XI grossly intact, no focal neuro deficits Psych: Alert, oriented, appropriate affect - Labs CBC & Chem 7: 01/27/20 05:04 01/27/20 05:04 Labs: Abnormal Lab Results - Last 24 Hours (Table) 01/26/20 01/26/20 01/26/20 Range/Units 12:20 12:21 12:52 Neutrophils # (1.3-7.7) k/uL D-Dimer 0.76 H (<0.60) mg/L FEU Sodium (137-145) mmol/L Carbon Dioxide (22-30) mmol/L BUN (9-20) mg/dL Glucose (74-99) mg/dL POC Glucose (mg/dL) 169 H (75-99) mg/dL Ferritin (22.0-322.0) ng/mL ALT (4-49) U/L Lactate Dehydrogenase (313-618) U/L C-Reactive Protein 11.0 H (<10.0) mg/L Total Protein (6.3-8.2) g/dL Albumin (3.5-5.0) g/dL 07/24/20 07/24/20 07/25/20 Range/Units 17:14 21:37 05:04 Neutrophils # (1.3-7.7) k/uL D-Dimer (<0.60) mg/L FEU Sodium 135 L (137-145) mmol/L Carbon Dioxide 21 L (22-30) mmol/L BUN 30 H (9-20) mg/dL Glucose 154 H (74-99) mg/dL POC Glucose (mg/dL) 178 H 199 H (75-99) mg/dL Ferritin 2303.4 H (22.0-322.0) ng/mL ALT 55 H (4-49) U/L Lactate Dehydrogenase 1001 H (313-618) U/L C-Reactive Protein (<10.0) mg/L Total Protein 5.9 L (6.3-8.2) g/dL Albumin 3.3 L (3.5-5.0) g/dL 01/27/20 01/27/20 01/27/20 Range/Units 05:04 05:04 06:53 Neutrophils # 7.8 H (1.3-7.7) k/uL D-Dimer 0.69 H (<0.60) mg/L FEU Sodium (137-145) mmol/L Carbon Dioxide (22-30) mmol/L BUN (9-20) mg/dL Glucose (74-99) mg/dL POC Glucose (mg/dL) 148 H (75-99) mg/dL Ferritin (22.0-322.0) ng/mL ALT (4-49) U/L Lactate Dehydrogenase (313-618) U/L C-Reactive Protein (<10.0) mg/L Total Protein (6.3-8.2) g/dL Albumin (3.5-5.0) g/dL 01/27/20 Range/Units 11:37 Neutrophils # (1.3-7.7) k/uL D-Dimer (<0.60) mg/L FEU Sodium (137-145) mmol/L Carbon Dioxide (22-30) mmol/L BUN (9-20) mg/dL Glucose (74-99) mg/dL POC Glucose (mg/dL) 163 H (75-99) mg/dL Ferritin (22.0-322.0) ng/mL ALT (4-49) U/L Lactate Dehydrogenase (313-618) U/L C-Reactive Protein (<10.0) mg/L Total Protein (6.3-8.2) g/dL Albumin (3.5-5.0) g/dL Microbiology - Last 24 Hours (Table) 01/21/20 17:35 Blood Culture - Preliminary Blood No Growth after 120 hours 01/24/20 10:42 Blood Culture - Preliminary Blood No Growth after 48 hours 01/24/20 10:42 Blood Culture - Preliminary Blood No Growth after 48 hours Assessment and Plan Assessment: COVID-19 viral pneumonia with acute hypoxic respiratory failure - pulm recs - Tocilizumab 01/23 and 01/24 - ID recs appreciated - IL-6 level elevated - High Flow NC - Awake proning - on zithromax and rocephin for possible CAP per ID D # 5 - on lovenox dosing per pulmonary - repeat Ferritin, LDH, CRP, D dimer q48h hours Hyperglycemia, with diabetes - levemir Increased - SSI - A1C 6.8, diet control on discharge, will need glucometer - follow BS Morbid obesity BMI 40.7 - structured outpatient weight loss HTN - Triamterene, HCTZ, lisinopril, norvasc - follow BP Dyslipidemia -Statin DVT prophylaxis: Lovenox Discussed with: Patient, , nursing, Anticipated discharge: 3-[address]: home A total of 35 minutes was spent on the care of this complex patient more than 50% of the time was spent in counseling and care coordination.
[2020-01-27 16:56] LABS: Glucose,Whole Blood 266 mg/dL (75-99)
[2020-01-27 21:07] LABS: Glucose,Whole Blood 171 mg/dL (75-99)
[2020-01-27] MEDS: INSULIN DETEMIR (LEVEMIR) 100 UNIT/ML SYR SQ SCH (21:11)
[2020-01-27] MEDS: ATORVASTATIN 20 MG TAB PO SCH (21:11)
[2020-01-27] MEDS: ALPRAZolam 0.5 MG TAB PO PRN (21:11)
[2020-01-27] MEDS: ASPIRIN 81 MG PO SCH (21:11)
[2020-01-27] MEDS: AZITHROMYCIN 500 MG in SODIUM CHLORIDE 0.9% 250 ML IVPB SCH (21:11)
--- NOTE | 2020-01-28 01:39 | P.PN ---
Subjective Progress Note Date: 01/27/20 Principal diagnosis: Covid 19 pneumonia Patient is a 64-year-old male presenting to the ER with chief complaints of fever of 2 weeks along with increasing shortness of breath and cough in this patient who was diagnosed with COVID19 infection 5 days prior to presentation to the hospital patient was initially on the floor and was treated medically subsequently did have a worsening respiratory distress and has to be transferred out of the ICU, patient was out of the window of treatment with Redemsivir however did receive 2 doses of Actimera on 01/24/2020 On today's evaluation that is 01/27/2020, the patient remains to be afebrile,, the patient is breathing comfortably today, oxygen requirement has been about the same, the patient denies having any chest pain, minimal cough no nausea no vomiting no abdominal pain and no diarrhea Objective - Vital Signs Vital signs: Vital Signs Temp 97.3 F L 01/27/20 12:00 Pulse 68 01/27/20 12:00 Resp 17 01/27/20 12:00 BP 122/93 01/27/20 12:00 Pulse Ox 90 L 01/27/20 12:00 Intake & Output 01/26/20 01/27/20 01/27/20 18:59 06:59 18:59 Intake Total 900 975 375 Output Total 1050 900 Balance -150 75 375 Intake: IV 900 750 Sodium Chloride 0.9% 1, 900 750 000 ml @ 75 mls/hr IV . [id number] [facility] Rx#:[id number] Intake, IV Titration 225 375 Amount Sodium Chloride 0.45% 1, 225 375 000 ml @ 75 mls/hr IV . [id number] [facility] Rx#:[id number] Output: Urine 1050 900 Other: Voiding Method Urinal Urinal Urinal # Voids 1 1 # Bowel Movements 1 - Exam GENERAL DESCRIPTION:[ Patient is awake and alert in no distress] HEENT: [Oral mucosa is dry and no pharyngeal erythema] EYES : [No pallor or scleral icterus] RESPIRATORY SYSTEM: [Unlabored breathing decreased breath sound the bases CARDIA VASCULAR SYSTEM: [S1-S2 regular rate and rhythm no murmur] GI: [Abdominal soft there's no tenderness no organomegaly] EXTREMITIES: [No edema feet] - Labs CBC & Chem 7: 01/27/20 05:04 01/27/20 05:04 Labs: Abnormal Lab Results - Last 24 Hours (Table) 01/26/20 01/26/20 01/27/20 Range/Units 17:14 21:37 05:04 Neutrophils # (1.3-7.7) k/uL D-Dimer (<0.60) mg/L FEU Sodium 135 L (137-145) mmol/L Carbon Dioxide 21 L (22-30) mmol/L BUN 30 H (9-20) mg/dL Glucose 154 H (74-99) mg/dL POC Glucose (mg/dL) 178 H 199 H (75-99) mg/dL Ferritin 2303.4 H (22.0-322.0) ng/mL ALT 55 H (4-49) U/L Lactate Dehydrogenase 1001 H (313-618) U/L Total Protein 5.9 L (6.3-8.2) g/dL Albumin 3.3 L (3.5-5.0) g/dL 01/27/20 01/27/20 01/27/20 Range/Units 05:04 05:04 06:53 Neutrophils # 7.8 H (1.3-7.7) k/uL D-Dimer 0.69 H (<0.60) mg/L FEU Sodium (137-145) mmol/L Carbon Dioxide (22-30) mmol/L BUN (9-20) mg/dL Glucose (74-99) mg/dL POC Glucose (mg/dL) 148 H (75-99) mg/dL Ferritin (22.0-322.0) ng/mL ALT (4-49) U/L Lactate Dehydrogenase (313-618) U/L Total Protein (6.3-8.2) g/dL Albumin (3.5-5.0) g/dL 01/27/20 Range/Units 11:37 Neutrophils # (1.3-7.7) k/uL D-Dimer (<0.60) mg/L FEU Sodium (137-145) mmol/L Carbon Dioxide (22-30) mmol/L BUN (9-20) mg/dL Glucose (74-99) mg/dL POC Glucose (mg/dL) 163 H (75-99) mg/dL Ferritin (22.0-322.0) ng/mL ALT (4-49) U/L Lactate Dehydrogenase (313-618) U/L Total Protein (6.3-8.2) g/dL Albumin (3.5-5.0) g/dL Microbiology - Last 24 Hours (Table) 01/24/20 10:42 Blood Culture - Preliminary Blood No Growth after 72 hours 01/24/20 10:42 Blood Culture - Preliminary Blood No Growth after 72 hours 01/21/20 17:35 Blood Culture - Preliminary Blood No Growth after 120 hours Assessment and Plan Assessment: 1- patient presented to hospital with increasing shortness of breath in this patient who has been sick for almost 2 weeks before he presented to the hospital with fever increase in shortness of breath dry cough and did have evidence of bilateral infiltrate and outpatient diagnosis of covid19 , now with worsening of his respiratory status over the last 48 hours and the patient has been in the hospital with a question of possible progression to the cytokines fiordaliza for the patient has received Actemra and seems to have shown clinical response 2- patient did have elevated pro calcitonin which is not common with viral pneumonia underlying component of bacterial pneumonia not entirely excluded (1) Pneumonia due to COVID-19 virus Current Visit: Yes Status: Acute Code(s): U07.1 - COVID-19; J12.89 - OTHER VIRAL PNEUMONIA SNOMED Code(s): 799957270 Plan: 1- patient to continue with with dexamethasone and Lovenox 2- respiratory support and droplet isolation 3- continue with Rocephin and Zithromax in view of elevated Procalcitonin Time with Patient: Less than 30
[2020-01-28 05:18] LABS: Basophils # (A) 0.1 k/uL (0-0.2); Basophils % (A) 0 %; Eosinophils % (A) 0 %; HCT 45.5 % (39.0-53.0); HGB 15.3 gm/dL (13.0-17.5); Lymphocytes # (A) 1.2 k/uL (1.0-4.8); Lymphocytes % (A) 11 %; MCH 29.3 pg (25.0-35.0); MCHC 33.6 g/dL (31.0-37.0); MCV 87.3 fL (80.0-100.0); Monocytes # (A) 0.9 k/uL (0-1.0); Monocytes % (A) 9 %; Neutrophils # (A) 8.5 k/uL (1.3-7.7); Neutrophils % (A) 78 %; Platelet Count 403 k/uL (150-450); RBC 5.21 m/uL (4.30-5.90); RDW 12.7 % (11.5-15.5); WBC 10.9 k/uL (3.8-10.6)
[2020-01-28 05:38] LABS: ALT 65 U/L (4-49); AST 36 U/L (17-59); African American GFR (CKD) >90 (>60 ml/min/1.73 sqM); Albumin 3.3 g/dL (3.5-5.0); Alkaline Phosphatase 100 U/L (38-126); Anion Gap 7 mmol/L; Blood Urea Nitrogen 31 mg/dL (9-20); Calcium 8.6 mg/dL (8.4-10.2); Carbon Dioxide 22 mmol/L (22-30); Chloride 105 mmol/L (98-107); Glucose 148 mg/dL (74-99); Non-African American GFR(CKD) 87 (>60 ml/min/1.73 sqM); Potassium 4.9 mmol/L (3.5-5.1); Sodium 134 mmol/L (137-145); Total Bilirubin 0.9 mg/dL (0.2-1.3); Total Protein 5.9 g/dL (6.3-8.2)
--- NOTE | 2020-01-28 07:11 | XR ---
EXAMINATION TYPE: XR chest 1V portable DATE OF EXAM: 01/28/2020 HISTORY: COVID. REFERENCE: Previous study dated 01/27/2020. FINDINGS: Heart size upper limits of normal. There are bilateral peripheral infiltrates. These are im proved slightly. No definite pleural fluid is seen. IMPRESSION: SLIGHT IMPROVEMENT IN THE APPEARANCE OF THE CHEST.
[2020-01-28 07:16] LABS: Glucose,Whole Blood 135 mg/dL (75-99)
[2020-01-28] MEDS: INSULIN ASPART (NovoLOG) 100 UNIT/ML VIAL SQ SCH ×4 (07:20→21:36)
[2020-01-28] MEDS: ALBUTEROL HFA INHALER INHALATION PRN ×4 (08:44→19:39)
[2020-01-28] MEDS: SYMBICORT 160-4.5 MCG INHALER INHALATION SCH ×2 (08:44→19:39)
[2020-01-28] MEDS: amLODIPine 10 MG TAB PO SCH (08:46)
[2020-01-28] MEDS: dexAMETHasone 2 MG TAB PO SCH (08:46)
[2020-01-28] MEDS: FAMOTIDINE 20 MG TAB PO SCH (08:46)
[2020-01-28] MEDS: TRIAMTERENE-HCTZ 37.5-25MG 1 EACH TAB PO SCH (08:47)
[2020-01-28] MEDS: ENOXAPARIN 80 MG/0.8 ML SYRINGE SQ SCH ×2 (08:47→21:01)
[2020-01-28] MEDS: lisinopriL 20 MG TAB PO SCH (08:47)
[2020-01-28] MEDS: SODIUM CHLORIDE 0.45% 1,000 ML IV SCH (12:01)
[2020-01-28 12:10] LABS: Glucose,Whole Blood 141 mg/dL (75-99)
--- NOTE | 2020-01-28 13:16 | P.PN ---
Subjective Progress Note Date: 01/28/20 Principal diagnosis: Acute hypoxic or history failure secondary to covid 19 pneumonitis. 64-year-old white male patient of Dr. Arnold, with history of hypertension, hyperlipidemia, former smoker, presented to the emergency department on 01/21/2020 with 2 week history of fevers and patient had been tested for Coronavirus at a testing facility outside of [place], and was found to be positive. Over last to 3 days patient has been increasingly short of breath, complaining of fatigue, headaches, loss of smell and taste, and still having fevers. Patient was also found to be hypoxemic, with a pulse ox of 90-91 on 3 L of oxygen, only low-grade temp of 99.5F on presentation, afebrile during his hospital stay, hemodynamically he is stable, chest x-ray showing hazy asymmetric opacification of the left lung base. EKG showing sinus rhythm with PVCs, was normal EKG. Labs on admission showed CBC within normal limits with the exception of lymphocyte count of 0.9, d-dimer of 1.13, fibrinogen 590, sodium is 135, CO2 is 21, the rest of electrolytes and renal profile were unremarkable, plasma lactic acid was 1.1, AST was 94, ALT was 80, alkaline phosphatase was 165, LDH was 1532, CK was 264, troponin was 0.024, and 0.012. ProBNP was 82. Patient was started on oral Decadron at 6 milligrams daily, prophylactic doses of Lovenox, he is on his home dose of Lipitor, home dose of lisinopril, Triamterene-Hctz. At the time of our evaluation patient is in isolation, and droplet precautions, awake and alert, on 4 L of oxygen his pulse ox is 94%, respirations are nonlabored, short of breath with exertion, afebrile, hemodynamically stable. Denies any worsening shortness of breath, no nausea vomiting abdominal pain or diarrhea, no chest pain. On 01/23/2020 patient seen in follow-up on esophageal medical surgical floor. He is awake and alert, currently on 4 L of oxygen, with a pulse ox of 90, his FiO2 was recently increased to 6 L, and his pulse ox is 90%, he states he is feeling about the same, does not appear to be in any acute distress, but is short of breath at rest and with any exertion. Denies any chest pain or palpitations, no nausea vomiting or diarrhea, no fever or chills. Patient is on empiric antibiotics in the form of azithromycin and ceftriaxone, oral dexamethasone, Lovenox, Pepcid. Lung sounds reveal clear diminished breath sounds at the bases. Today's labs have been reviewed, lymphocyte count is 0.7, normal white count of 7.9, LDH is trending down, down to 1002, and CK is down to 173. Pro-calcitonin was 0.23, and patient is on azithromycin and Rocephin. Reevaluated today on 01/24/20, patient is demonstrating a significant worsening of his pulmonary status over the last 24 hours. Chest x-ray is significantly worse, showing worsening bilateral infiltrates. His O2 saturation is dropping significantly, now he is on high flow with airvo , being titrated to keep O2 saturation above 90%. Hence after evaluating his chest x-ray and his vitals as well as evaluating the patient, recommended transferred to the ICU. CBC is rela tively normal. Platelets are normal. Lymphocytes are low. His markers are about the same LDH is 1124 d-dimer is improved 0.63 from 1.13 on admission. C- reactive protein is improved down to 41.8. Ferritin level is elevated over 3000. Patient is complaining of worsening shortness of breath, and he seems to be more tachypneic compared to yesterday. Again I we have made arrangements for the patient to transfer to ICU, and will possibly start the patient on actimra Patient was reevaluated today on 01/25/20, patient is doing about the same. Remains in the ICU, he is receiving Zithromax, Rocephin, Decadron, already received 2 doses of actemra, on Pepcid, on atorvastatin, IV fluid is at 75 mL/h, patient is on airvo at 85% FiO2, and 60 L/m flow. O2 saturation is 93%. Patient tells me that his feeling a bit better compared to yesterday. Has intermittent cough, no wheezing, chest x-ray continues to show bilateral bibasilar infiltrates. Inflammatory markers are improving. Interleukin-6 level is pending. Patient was seen by infectious disease on consultation, and no changes were suggested. Patient was reevaluated today on 01/26/20, remains in the ICU, remains on Decadron Rocephin and Zithromax, patient remains on high flow oxygen FiO2 85% and 60 L/m flow utilizing airvo. Patient tells me that he is feeling a bit better breathing easier, clinically he is basically about the same. No cough no wheezing no fever no chills no hemoptysis. C-reactive protein is down to 11. And his d-dimer today is 0.76. Patient remains on Lovenox 80 mg subcu twice a day Patient was reevaluated today on 01/27/20, remains in the intensive care unit, remains on high flow oxygen, patient is feeling a bit better. He is on 70% FiO2 and 60 L flow. IV fluid is D5 45 at 75 ML per hour. Patient had a chest x-ray today, and showed possibly slight worsening of his infiltrates bilaterally. But clinically the patient is feeling better. Labs reviewed today seem to be unremarkable. Reevaluated today on 01/28/20, patient remains in the ICU, feeling better, breathing a bit easier, remains on 80% FiO2 60 L high flow oxygen, patient's x- ray is showing improvement. Clinically he is selling me that his feeling better. And his O2 saturation remains marginal in the low 90s and I will cut down his FiO2 to 70% if possible today. His labs today were reviewed he had a relatively normal CBC. WBC count is 10.9. Platelets are normal. And his lymphocytes are 11%. Basic metabolic profile is normal renal profile is normal. C-reactive protein is down to less than 5. Objective - Vital Signs Vital signs: Vital Signs Temp 97.9 F 01/28/20 12:00 Pulse 76 01/28/20 12:00 Resp 14 01/28/20 12:00 BP 129/77 01/28/20 12:00 Pulse Ox 91 L 01/28/20 12:00 Intake & Output 01/27/20 01/28/20 01/28/20 18:59 06:59 18:59 Intake Total 825 900 375 Output Total 625 850 250 Balance 200 50 125 Intake: Intake, IV Titration 825 900 375 Amount Sodium Chloride 0.45% 1, 825 900 375 000 ml @ 75 mls/hr IV . [id number] [facility] Rx#:[id number] Output: Urine 625 850 250 Other: Voiding Method Urinal Urinal # Voids 1 1 # Bowel Movements 1 - Exam GENERAL EXAM: Alert, very pleasant, 64 -year-old white male high flow oxygen, in no distress HEENT: Atraumatic, normocephalic, PERRLA, EOMI, no icterus, no neck masses, no JVD. CHEST: No chest wall deformity. Symmetrical expansion. LUNGS: Crackles at the bases. No rhonchi and no wheezes. CVS: Regular rate and rhythm, normal S1 and S2, no gallops, no murmurs, no rubs ABDOMEN: Soft, nontender. No hepatosplenomegaly, normal bowel sounds, no guarding or rigidity. EXTREMITIES: No clubbing, no edema, no cyanosis, 2+ pulses and upper and lower extremities. MUSCULOSKELETAL: Muscle strength and tone normal. SPINE: No scoliosis or deformity SKIN: No rashes CENTRAL NERVOUS SYSTEM: Alert and oriented -3. No focal deficits, tone is normal in all 4 extremities. PSYCHIATRIC: Alert and oriented -3. Appropriate affect. Intact judgment and insight. - Labs CBC & Chem 7: 01/28/20 04:35 01/28/20 04:35 Labs: Abnormal Lab Results - Last 24 Hours (Table) 01/27/20 01/27/20 01/28/20 Range/Units 16:54 20:55 04:35 WBC (3.8-10.6) k/uL Neutrophils # (1.3-7.7) k/uL Sodium 134 L (137-145) mmol/L BUN 31 H (9-20) mg/dL Glucose 148 H (74-99) mg/dL POC Glucose (mg/dL) 266 H 171 H (75-99) mg/dL ALT 65 H (4-49) U/L Total Protein 5.9 L (6.3-8.2) g/dL Albumin 3.3 L (3.5-5.0) g/dL 01/28/20 01/28/20 01/28/20 Range/Units 04:35 07:14 12:08 WBC 10.9 H (3.8-10.6) k/uL Neutrophils # 8.5 H (1.3-7.7) k/uL Sodium (137-145) mmol/L BUN (9-20) mg/dL Glucose (74-99) mg/dL POC Glucose (mg/dL) 135 H 141 H (75-99) mg/dL ALT (4-49) U/L Total Protein (6.3-8.2) g/dL Albumin (3.5-5.0) g/dL Microbiology - Last 24 Hours (Table) 01/21/20 17:35 Blood Culture - Final Blood No Growth after 144 hours 01/24/20 10:42 Blood Culture - Preliminary Blood No Growth after 72 hours 01/24/20 10:42 Blood Culture - Preliminary Blood No Growth after 72 hours Assessment and Plan Assessment: Impression: Acute hypoxic respiratory failure secondary to acute covid 19 pneumonitis. Acute pneumonitis secondary to covid 19. Lymphopenia with elevated d-dimer elevated fibrinogen LDH and CRP improving. Benign essential hypertension Former smoker, in remission. Recommendation: Continue to monitor in the ICU. Continue high flow O2. Decrease FiO2 to 70% today. Continue Decadron. Continue Lovenox. Continue empiric antibiotics. Continue Pepcid. Continue atorvastatin. Received 2 courses of actemra We will continue to follow. Time with Patient: Less than 30
[2020-01-28] MEDS: ALPRAZolam 0.5 MG TAB PO SCH ×2 (13:22→21:01)
--- NOTE | 2020-01-28 14:39 | P.PN ---
Subjective Progress Note Date: 01/28/20 Principal diagnosis: Shortness of breath, COVID 19 + Patient was seen and examined. No acute events overnight. Patient continues to report shortness of breath especially with exertion though improved since yesterday. Breathing slightly worsened from yesterday. Currently on Airvo saturating low 90s on 60 L FiO2 70%. Chest x-ray this morning shows slight improvement in the appearance of the chest. CRP within normal limits. Objective - Vital Signs Vital signs: Vital Signs Temp 97.9 F 01/28/20 12:00 Pulse 79 01/28/20 13:00 Resp 19 01/28/20 13:00 BP 128/74 01/28/20 13:00 Pulse Ox 90 L 01/28/20 13:00 Intake & Output 01/27/20 01/28/20 01/28/20 18:59 06:59 18:59 Intake Total 825 900 525 Output Total 625 850 500 Balance 200 50 25 Intake: Intake, IV Titration 825 900 525 Amount Sodium Chloride 0.45% 1, 825 900 525 000 ml @ 75 mls/hr IV . [id number] [facility] Rx#:[id number] Output: Urine 625 850 500 Other: Voiding Method Urinal Urinal # Voids 1 1 # Bowel Movements 1 - Exam General: [non toxic], [appears dyspnea on AIRVO], [appears at stated age] Derm: [warm], [dry] Head: [atraumatic], [normocephalic], [symmetric] Eyes: [EOMI], [no lid lag], [anicteric sclera] Mouth: [no lip lesion], [mucus membranes moist] Cardiovascular: [S1S2 reg], [no murmur], [positive DP pulse bilateral], Lungs: [Decreased breath sounds bilateral], [no rhonchi, no rales] , [no accessory muscle use] Abdominal: [soft], [ nontender to palpation], [no guarding], [no appreciable organomegaly] Ext: [no gross muscle atrophy], [no edema], [no contractures] Neuro: [no focal neuro deficits] Psych: [Alert], [oriented], [appropriate affect] - Labs CBC & Chem 7: 01/28/20 04:35 01/28/20 04:35 Labs: Abnormal Lab Results - Last 24 Hours (Table) 01/27/20 01/27/20 01/28/20 Range/Units 16:54 20:55 04:35 WBC (3.8-10.6) k/uL Neutrophils # (1.3-7.7) k/uL Sodium 134 L (137-145) mmol/L BUN 31 H (9-20) mg/dL Glucose 148 H (74-99) mg/dL POC Glucose (mg/dL) 266 H 171 H (75-99) mg/dL ALT 65 H (4-49) U/L Total Protein 5.9 L (6.3-8.2) g/dL Albumin 3.3 L (3.5-5.0) g/dL 01/28/20 01/28/20 01/28/20 Range/Units 04:35 07:14 12:08 WBC 10.9 H (3.8-10.6) k/uL Neutrophils # 8.5 H (1.3-7.7) k/uL Sodium (137-145) mmol/L BUN (9-20) mg/dL Glucose (74-99) mg/dL POC Glucose (mg/dL) 135 H 141 H (75-99) mg/dL ALT (4-49) U/L Total Protein (6.3-8.2) g/dL Albumin (3.5-5.0) g/dL Microbiology - Last 24 Hours (Table) 01/24/20 10:42 Blood Culture - Preliminary Blood No Growth after 96 hours 01/24/20 10:42 Blood Culture - Preliminary Blood No Growth after 96 hours 01/21/20 17:35 Blood Culture - Final Blood No Growth after 144 hours Assessment and Plan Assessment: COVID-19 viral pneumonia with acute hypoxic respiratory failure - pulm recs - Tocilizumab 01/23 and 01/24 - ID recs appreciated - IL-6 level elevated - High Flow NC - Awake proning - on zithromax and rocephin for possible CAP per ID D # 6 - on lovenox dosing per pulmonary - repeat Ferritin, LDH, CRP, D dimer q48h hours Hyperglycemia, with diabetes - levemir Increased - SSI - A1C 6.8, diet control on discharge, will need glucometer - follow BS Morbid obesity BMI 40.7 - structured outpatient weight loss HTN - Triamterene, HCTZ, lisinopril, norvasc - follow BP Dyslipidemia -Statin [Patient admitted for COVID 19 pneumonia. On IV antibiotics for pneumonia. On high flow nasal cannula. He is pending clinical improvement.]
[2020-01-28 17:02] LABS: Glucose,Whole Blood 182 mg/dL (75-99)
[2020-01-28] MEDS: ASPIRIN 81 MG PO SCH (21:01)
[2020-01-28] MEDS: ATORVASTATIN 20 MG TAB PO SCH (21:01)
[2020-01-28] MEDS: AZITHROMYCIN 500 MG TAB PO SCH (21:01)
[2020-01-28] MEDS: INSULIN DETEMIR (LEVEMIR) 100 UNIT/ML SYR SQ SCH (21:02)
[2020-01-28 21:18] LABS: Glucose,Whole Blood 191 mg/dL (75-99)
[2020-01-29] MEDS: SODIUM CHLORIDE 0.45% 1,000 ML IV SCH ×2 (02:01→16:12)
[2020-01-29 05:05] LABS: Basophils % (A) 0 %; Eosinophils % (A) 0 %; HCT 42.8 % (39.0-53.0); HGB 15.1 gm/dL (13.0-17.5); Lymphocytes % (A) 10 %; MCH 31.1 pg (25.0-35.0); MCHC 35.3 g/dL (31.0-37.0); Monocytes # (A) 0.8 k/uL (0-1.0); Monocytes % (A) 8 %; Neutrophils # (A) 7.8 k/uL (1.3-7.7); Neutrophils % (A) 80 %; Platelet Count 440 k/uL (150-450); RBC 4.86 m/uL (4.30-5.90); RDW 12.7 % (11.5-15.5); WBC 9.8 k/uL (3.8-10.6)
[2020-01-29 05:33] LABS: ALT 68 U/L (4-49); AST 34 U/L (17-59); African American GFR (CKD) >90 (>60 ml/min/1.73 sqM); Albumin 3.1 g/dL (3.5-5.0); Alkaline Phosphatase 88 U/L (38-126); Anion Gap 8 mmol/L; Blood Urea Nitrogen 32 mg/dL (9-20); Calcium 8.3 mg/dL (8.4-10.2); Carbon Dioxide 22 mmol/L (22-30); Chloride 102 mmol/L (98-107); Creatine Kinase 46 U/L (55-170); Glucose 145 mg/dL (74-99); LDH 904 U/L (313-618); Non-African American GFR(CKD) 86 (>60 ml/min/1.73 sqM); Potassium 4.7 mmol/L (3.5-5.1); Sodium 132 mmol/L (137-145); Total Bilirubin 0.8 mg/dL (0.2-1.3); Total Protein 5.5 g/dL (6.3-8.2)
[2020-01-29 06:52] LABS: Glucose,Whole Blood 130 mg/dL (75-99)
--- NOTE | 2020-01-29 07:47 | XR ---
EXAMINATION TYPE: XR chest 1V portable DATE OF EXAM: 01/29/2020 COMPARISON: 01/28/2020 INDICATION: Short of breath TECHNIQUE: Single frontal view of the chest is obtained. FINDINGS: The heart size is normal. The pulmonary vasculature is normal. Bilateral lower lobe infiltrates are present within the periphery. Findings are worsening over the in terval. Correlate for atypical pneumonia. IMPRESSION: 1. Worsening peripheral bibasilar infiltrates. Correlate for pneumonia. Consider atypical pneumonia.
--- NOTE | 2020-01-29 08:30 | P.PN ---
Subjective Progress Note Date: 01/28/20 Principal diagnosis: Covid 19 pneumonia Patient is a 64-year-old male presenting to the ER with chief complaints of fever of 2 weeks along with increasing shortness of breath and cough in this patient who was diagnosed with COVID19 infection 5 days prior to presentation to the hospital patient was initially on the floor and was treated medically subsequently did have a worsening respiratory distress and has to be transferred out of the ICU, patient was out of the window of treatment with Redemsivir however did receive 2 doses of Actimera on 01/24/2020 On today's evaluation that is 01/28/2020, the patient is afebrile,, the patient is breathing comfortably and oxygen requirement has been down from yesterday, the patient denies having any chest pain, the patient did have minimal dry cough no nausea no vomiting no abdominal pain and no diarrhea Objective - Vital Signs Vital signs: Vital Signs Temp 98.5 F 01/28/20 15:00 Pulse 74 01/28/20 16:00 Resp 18 01/28/20 16:00 BP 130/77 01/28/20 16:00 Pulse Ox 95 01/28/20 16:00 Intake & Output 01/27/20 01/28/20 01/28/20 18:59 06:59 18:59 Intake Total 825 900 750 Output Total 625 850 750 Balance 200 50 0 Intake: Intake, IV Titration 825 900 750 Amount Sodium Chloride 0.45% 1, 825 900 750 000 ml @ 75 mls/hr IV . [id number] [facility] Rx#:[id number] Output: Urine 625 850 750 Other: Voiding Method Urinal Urinal Urinal # Voids 1 1 # Bowel Movements 1 - Exam GENERAL DESCRIPTION:[ Patient is awake and alert in no distress] HEENT: [Oral mucosa is dry and no pharyngeal erythema] EYES : [No pallor or scleral icterus] RESPIRATORY SYSTEM: [Unlabored breathing decreased breath sound the bases CARDIA VASCULAR SYSTEM: [S1-S2 regular rate and rhythm no murmur] GI: [Abdominal soft there's no tenderness no organomegaly] EXTREMITIES: [No edema feet] - Labs CBC & Chem 7: 01/29/20 04:07 01/29/20 04:07 Labs: Abnormal Lab Results - Last 24 Hours (Table) 01/27/20 01/27/20 01/28/20 Range/Units 16:54 20:55 04:35 WBC (3.8-10.6) k/uL Neutrophils # (1.3-7.7) k/uL Sodium 134 L (137-145) mmol/L BUN 31 H (9-20) mg/dL Glucose 148 H (74-99) mg/dL POC Glucose (mg/dL) 266 H 171 H (75-99) mg/dL ALT 65 H (4-49) U/L Total Protein 5.9 L (6.3-8.2) g/dL Albumin 3.3 L (3.5-5.0) g/dL 01/28/20 01/28/20 01/28/20 Range/Units 04:35 07:14 12:08 WBC 10.9 H (3.8-10.6) k/uL Neutrophils # 8.5 H (1.3-7.7) k/uL Sodium (137-145) mmol/L BUN (9-20) mg/dL Glucose (74-99) mg/dL POC Glucose (mg/dL) 135 H 141 H (75-99) mg/dL ALT (4-49) U/L Total Protein (6.3-8.2) g/dL Albumin (3.5-5.0) g/dL Microbiology - Last 24 Hours (Table) 01/24/20 10:42 Blood Culture - Preliminary Blood No Growth after 96 hours 01/24/20 10:42 Blood Culture - Preliminary Blood No Growth after 96 hours 01/21/20 17:35 Blood Culture - Final Blood No Growth after 144 hours Assessment and Plan Assessment: 1- patient presented to hospital with increasing shortness of breath in this patient who has been sick for almost 2 weeks before he presented to the hospital with fever increase in shortness of breath dry cough and did have evidence of bilateral infiltrate and outpatient diagnosis of covid19 , now with worsening of his respiratory status over the last 48 hours and the patient has been in the hospital with a question of possible progression to the cytokines fiordaliza for the patient has received Actemra and seems to have shown clinical response with decrease in his FiO2 2- patient did have elevated pro calcitonin which is not common with viral pneumonia underlying component of bacterial pneumonia not entirely excluded (1) Pneumonia due to COVID-19 virus Current Visit: Yes Status: Acute Code(s): U07.1 - COVID-19; J12.89 - OTHER VIRAL PNEUMONIA SNOMED Code(s): 965406078 Plan: 1- patient to continue with with dexamethasone and Lovenox 2- respiratory support and droplet isolation 3- continue with Rocephin and Zithromax and will monitor his clinical course closely Time with Patient: Less than 30
[2020-01-29] MEDS: INSULIN ASPART (NovoLOG) 100 UNIT/ML VIAL SQ SCH ×4 (08:34→21:08)
[2020-01-29] MEDS: AZITHROMYCIN 500 MG TAB PO SCH (08:37)
[2020-01-29] MEDS: amLODIPine 10 MG TAB PO SCH (08:37)
[2020-01-29] MEDS: TRIAMTERENE-HCTZ 37.5-25MG 1 EACH TAB PO SCH (08:37)
[2020-01-29] MEDS: ENOXAPARIN 80 MG/0.8 ML SYRINGE SQ SCH ×2 (08:37→20:28)
[2020-01-29] MEDS: lisinopriL 20 MG TAB PO SCH (08:37)
[2020-01-29] MEDS: ALPRAZolam 0.5 MG TAB PO SCH ×3 (08:37→21:07)
[2020-01-29] MEDS: FAMOTIDINE 20 MG TAB PO SCH (08:37)
[2020-01-29] MEDS: dexAMETHasone 2 MG TAB PO SCH (08:38)
[2020-01-29] MEDS: ALBUTEROL HFA INHALER INHALATION PRN ×4 (09:13→19:43)
[2020-01-29] MEDS: SYMBICORT 160-4.5 MCG INHALER INHALATION SCH ×2 (09:13→19:43)
--- NOTE | 2020-01-29 10:33 | P.PN ---
Subjective Progress Note Date: 01/29/20 Principal diagnosis: Acute COVID 19 pneumonitis 64-year-old white male patient of Dr. Arnold, with history of hypertension, hyperlipidemia, former smoker, presented to the emergency department on 01/21/2020 with 2 week history of fevers and patient had been tested for Coronavirus at a testing facility outside of [place], and was found to be positive. Over last to 3 days patient has been increasingly short of breath, complaining of fatigue, headaches, loss of smell and taste, and still having fevers. Patient was also found to be hypoxemic, with a pulse ox of 90-91 on 3 L of oxygen, only low-grade temp of 99.5F on presentation, afebrile during his hospital stay, hemodynamically he is stable, chest x-ray showing hazy asymmetric opacification of the left lung base. EKG showing sinus rhythm with PVCs, was normal EKG. Labs on admission showed CBC within normal limits with the exception of lymphocyte count of 0.9, d-dimer of 1.13, fibrinogen 590, sodium is 135, CO2 is 21, the rest of electrolytes and renal profile were unremarkable, plasma lactic acid was 1.1, AST was 94, ALT was 80, alkaline phosphatase was 165, LDH was 1532, CK was 264, troponin was 0.024, and 0.012. ProBNP was 82. Patient was started on oral Decadron at 6 milligrams daily, prophylactic doses of Lovenox, he is on his home dose of Lipitor, home dose of lisinopril, Triamterene-Hctz. At the time of our evaluation patient is in isolation, and droplet precautions, awake and alert, on 4 L of oxygen his pulse ox is 94%, respirations are nonlabored, short of breath with exertion, afebrile, hemodynamically stable. Denies any worsening shortness of breath, no nausea vomiting abdominal pain or diarrhea, no chest pain. On 01/23/2020 patient seen in follow-up on esophageal medical surgical floor. He is awake and alert, currently on 4 L of oxygen, with a pulse ox of 90, his FiO2 was recently increased to 6 L, and his pulse ox is 90%, he states he is feeling about the same, does not appear to be in any acute distress, but is short of breath at rest and with any exertion. Denies any chest pain or palpitations, no nausea vomiting or diarrhea, no fever or chills. Patient is on empiric antibiotics in the form of azithromycin and ceftriaxone, oral dexamethasone, Lovenox, Pepcid. Lung sounds reveal clear diminished breath sounds at the bases. Today's labs have been reviewed, lymphocyte count is 0.7, normal white count of 7.9, LDH is trending down, down to 1002, and CK is down to 173. Pro-calcitonin was 0.23, and patient is on azithromycin and Rocephin. On 01/29/2020 patient seen in follow-up in the intensive care unit. He is awake and alert, in no acute distress currently, on Airvo at 40 L/m and FiO2 of 55%, and his pulse ox is 89-91%. His breathing seems to be comfortable, no complete the chest pain, no cough, or phlegm production, he has been afebrile, hem odynamically stable. Does get short of breath with exertion. Today's chest x- ray has been reviewed showing worsening peripheral bibasilar infiltrates. Patient is status post Tocilizumab infusion 2 doses. He remains on oral Decadron, Pepcid, Rocephin and Zithromax. He is on Lovenox 80 mg twice daily. No worsening dyspnea, no nausea vomiting diarrhea, patient denies any acute complaints, he is becoming frustrated about being in the hospital this long, and he is asking to be able to go home. Was explained to him that he may not be able to have the same amount of oxygen if his oxygen level remains low. But we will give him a trial on high flow oxygen of 6 L. Objective - Vital Signs Vital signs: Vital Signs Temp 97.6 F 01/29/20 08:00 Pulse 72 01/29/20 09:00 Resp 17 01/29/20 09:00 BP 119/78 01/29/20 09:00 Pulse Ox 94 L 01/29/20 09:00 Intake & Output 01/28/20 01/29/20 01/29/20 18:59 06:59 18:59 Intake Total 900 950 585 Output Total 750 1450 350 Balance 150 -500 235 Intake: Intake, IV Titration 900 950 225 Amount Sodium Chloride 0.45% 900 225 000 ml @ 75 mls/hr IV . [id number] [facility] Rx#:[id number] cefTRIAXone 1 gm In 50 Sodium Chloride 0.9% 50 ml @ 100 mls/hr IVPB Q24H [facility] Rx#:[id number] Oral 360 Output: Urine 750 1450 350 Other: Voiding Method Urinal Urinal Urinal - Exam GENERAL EXAM: Alert, very pleasant, 64 -year-old white male on Airvo L at 40 L/m and FiO2 of 55% with the pulse ox of 89-90%, patient appears to be in no acute distress, breathing is comfortable, and does get exertional dyspnea HEAD: Normocephalic/atraumatic. EYES: Normal reaction of pupils, equal size. Conjunctiva pink, sclera white. NOSE: Clear with pink turbinates. THROAT: No erythema or exudates. NECK: No masses, no JVD, no thyroid enlargement, no adenopathy. CHEST: No chest wall deformity. Symmetrical expansion. LUNGS: Equal air entry with no crackles, wheeze, rhonchi or dullness. CVS: Regular rate and rhythm, normal S1 and S2, no gallops, no murmurs, no rubs ABDOMEN: Soft, nontender. No hepatosplenomegaly, normal bowel sounds, no guarding or rigidity. EXTREMITIES: No clubbing, no edema, no cyanosis, 2+ pulses and upper and lower extremities. MUSCULOSKELETAL: Muscle strength and tone normal. SPINE: No scoliosis or deformity SKIN: No rashes CENTRAL NERVOUS SYSTEM: Alert and oriented -3. No focal deficits, tone is normal in all 4 extremities. PSYCHIATRIC: Alert and oriented -3. Appropriate affect. Intact judgment and insight. - Labs CBC & Chem 7: 01/29/20 04:07 01/29/20 04:07 Labs: Abnormal Lab Results - Last 24 Hours (Table) 01/28/20 01/28/20 01/28/20 Range/Units 12:08 17:00 21:16 Neutrophils # (1.3-7.7) k/uL Sodium (137-145) mmol/L BUN (9-20) mg/dL Glucose (74-99) mg/dL POC Glucose (mg/dL) 141 H 182 H 191 H (75-99) mg/dL Calcium (8.4-10.2) mg/dL ALT (4-49) U/L Lactate Dehydrogenase (313-618) U/L Creatine Kinase (55-170) U/L Total Protein (6.3-8.2) g/dL Albumin (3.5-5.0) g/dL 01/29/20 01/29/20 01/29/20 Range/Units 04:07 04:07 06:50 Neutrophils # 7.8 H (1.3-7.7) k/uL Sodium 132 L (137-145) mmol/L BUN 32 H (9-20) mg/dL Glucose 145 H (74-99) mg/dL POC Glucose (mg/dL) 130 H (75-99) mg/dL Calcium 8.3 L (8.4-10.2) mg/dL ALT 68 H (4-49) U/L Lactate Dehydrogenase 904 H (313-618) U/L Creatine Kinase 46 L (55-170) U/L Total Protein 5.5 L (6.3-8.2) g/dL Albumin 3.1 L (3.5-5.0) g/dL Microbiology - Last 24 Hours (Table) 01/24/20 10:42 Blood Culture - Preliminary Blood No Growth after 96 hours 01/24/20 10:42 Blood Culture - Preliminary Blood No Growth after 96 hours Assessment and Plan Plan: Assessment: #1. Acute COVID 19 pneumonitis, patient tested at an outside facility For COVID 19 5 days prior to presentation and was found to be positive, onset of symptoms was 2 weeks ago prior to presentation. Chest x-ray showing hazy asymmetric opacification of the left lung base. Patient was transferred to the intensive care unit on 01/25/2020 with worsening hypoxemia and placed on Airvo. Patient received 2 doses of Tocilizumab #2. Acute hypoxic respiratory failure related to the above, requiring Airvo, currently down to 10 L per high flow cannula with a pulse ox of 90% #3. Lymphopenia, elevated d-dimer of 1.13, elevated fibrinogen, LDH and CRP related to acute Covid 19 infection, resolved #4. Dyspnea, fatigue, anosmia related to the above, improved #5. Hypertension #6. Hyperlipidemia #7. Former smoker, currently in remission Plan: We will switch the patient to a high flow oxygen at 10 L and patient is maintaining pulse ox of 90%, breathing is comfortable, he has been afebrile, vital signs have been stable, no complaints of chest pain, no nausea vomiting or diarrhea, encouraged the patient ambulate in the room. Today's chest x-ray has been reviewed showing some worsening of the peripheral bibasilar infiltrates but clinically patient remains stable. His LDH is trending down, his d-dimer is 0.50, will continue with Decadron, continue with Lovenox at current dose, ariella garcia is status post Actemra infusion 2 doses. We'll continue weaning FiO2 as tolerated to maintain a pulse ox of 90%. We'll obtain follow-up of procalcitonin I performed a history & physical examination of the patient and discussed their management with my nurse practitioner, Jami Andrews. I reviewed the nurse practitioner's note and agree with the documented findings and plan of care. Aleida ng sounds are positive for diminished breath sounds at the bases. The findings and the impression was discussed with the patient. I attest to the documentation by the nurse practitioner. Critical care time IS GREATER THAN 30 MINUTES Time with Patient: Greater than 30
[2020-01-29 11:41] LABS: Glucose,Whole Blood 130 mg/dL (75-99)
[2020-01-29 13:29] LABS: Ferritin 1779.2 ng/mL (22.0-322.0)
[2020-01-29 17:34] LABS: Glucose,Whole Blood 199 mg/dL (75-99)
[2020-01-29] MEDS: ASPIRIN 81 MG PO SCH (20:28)
[2020-01-29] MEDS: ATORVASTATIN 20 MG TAB PO SCH (20:28)
[2020-01-29] MEDS: INSULIN DETEMIR (LEVEMIR) 100 UNIT/ML SYR SQ SCH (20:39)
[2020-01-29 20:50] LABS: Glucose,Whole Blood 223 mg/dL (75-99)
--- NOTE | 2020-01-29 22:06 | P.PN ---
Progress Note - Text Progress Note Date: 01/29/20 Presenting complaint: Shortness of breath Interval history: Patient presented with 2 weeks of fever prior to presentation and increased shortness of breath and cough. Diagnosed with COVID 19 infection 5 days prior to presentation. Initially the medical floor. Been into respiratory distress m deepti to the ICU. Patient was out of the window for treatment forRedemsivir. Did receive 2 doses of Actimera on January 23. Patient had been on high flow oxygen Today-remains in ICU. Oxygen decreased from 10 down to -6 L. Tolerating his diet. Patient refused to walk. He wanted to go home. Review of systems: Was done for constitutional, cardiovascular, GI, pulmonary. relevant finding as above Active Medications Albuterol Sulfate (Ventolin Hfa Inhaler) 2 puff INHALATION RT-Q4H PRN PRN Reason: Shortness Of Breath Or Wheezing Last Admin: 01/29/20 19:43 Dose: 2 puff Documented by: Alprazolam (Xanax) 0.5 mg PO TID [facility] Last Admin: 01/29/20 21:07 Dose: 0.5 mg Documented by: Amlodipine Besylate (Norvasc) 10 mg PO DAILY [facility] Last Admin: 01/29/20 08:37 Dose: 10 mg Documented by: Aspirin (Aspirin) 81 mg PO HS [facility] Last Admin: 01/29/20 20:28 Dose: 81 mg Documented by: Atorvastatin Calcium (Lipitor) 20 mg PO HS [facility] Last Admin: 01/29/20 20:28 Dose: 20 mg Documented by: Azithromycin (Zithromax) 500 mg PO Q24H [facility] Last Admin: 01/29/20 08:37 Dose: 500 mg Documented by: Budesonide/Formoterol Fumarate (Symbicort 160-4.5 Mcg Inhaler) 2 puff I NHALATION RT-BID [facility] Last Admin: 01/29/20 19:43 Dose: 2 puff Documented by: Dexamethasone (Hexadrol) 6 mg PO DAILY [facility] Stop: 02/01/20 09:01 Last Admin: 01/29/20 08:38 Dose: 6 mg Documented by: Enoxaparin Sodium (Lovenox) 80 mg SQ BID [facility] Last Admin: 01/29/20 20:28 Dose: 80 mg Documented by: Famotidine (Pepcid) 40 mg PO DAILY [facility] Last Admin: 01/29/20 08:37 Dose: 40 mg Documented by: Sodium Chloride (Saline 0.45%) 1,000 mls @ 75 mls/hr IV .[id number] [facility] Last Admin: 01/29/20 16:12 Dose: 75 mls/hr Documented by: Insulin Aspart (Novolog) 0 unit SQ ACHS [facility]; Protocol Last Admin: 01/29/20 21:08 Dose: 4 unit Documented by: Insulin Detemir (Levemir) 12 unit SQ HS [facility] Last Admin: 01/29/20 20:39 Dose: 12 unit Documented by: Lisinopril (Zestril) 40 mg PO DAILY [facility] Last Admin: 01/29/20 08:37 Dose: 40 mg Documented by: Sodium Chloride (Saline Flush) 10 ml IV BID [facility] Last Admin: 01/29/20 20:28 Dose: 10 ml Documented by: Triamterene/HCTZ (Maxzide-25) 1 each PO DAILY [facility] Last Admin: 01/29/20 08:37 Dose: 1 each Documented by: On examination: VITAL SIGNS: 97.3, 79, 18, 115/71, 88% on 6 L GENERAL APPEARANCE: Laying in bed, awake slightly anxious PSYCHIATRY: Alert and oriented x3. Mood and affect normal. Rest of the physical exam as per pulmonary -noted INVESTIGATIONS, reviewed in the clinical context: White count 9.8 hemoglobin 15.1 percussion 4.7 crit 0.94 sodium 132 Ferritins 1779, LDH 904, pro calcitonin 0.06 Chest x-ray from-bilateral infiltrates Assessment: -Acute severe COVID 19 pneumonitis -Acute hypoxic respiratory failure from above initially requiring Airvo -essential hypertension -hyperlipidemia -Mild hyponatremia -Hyperglycemia secondary to steroids. Not a diabetic Plan: Patient is currently on bronchodilators, Norvasc, Lipitor, Zithromax, Symbicort, IV ceftriaxone, Levemir, IV fluids, Lovenox. Will DC the Maxzide and IV fluids.
[2020-01-30 05:52] LABS: Basophils % (A) 0 %; Eosinophils % (A) 0 %; HCT 49.5 % (39.0-53.0); HGB 16.5 gm/dL (13.0-17.5); Lymphocytes # (A) 1.3 k/uL (1.0-4.8); Lymphocytes % (A) 11 %; MCH 29.1 pg (25.0-35.0); MCHC 33.3 g/dL (31.0-37.0); MCV 87.4 fL (80.0-100.0); Mean Platelet Volume 7.5; Monocytes # (A) 0.8 k/uL (0-1.0); Monocytes % (A) 7 %; Neutrophils # (A) 9.5 k/uL (1.3-7.7); Neutrophils % (A) 80 %; Platelet Count 551 k/uL (150-450); RBC 5.67 m/uL (4.30-5.90); RDW 12.7 % (11.5-15.5); WBC 11.9 k/uL (3.8-10.6)
[2020-01-30 06:15] LABS: ALT 73 U/L (4-49); AST 34 U/L (17-59); African American GFR (CKD) >90 (>60 ml/min/1.73 sqM); Albumin 3.4 g/dL (3.5-5.0); Alkaline Phosphatase 89 U/L (38-126); Anion Gap 8 mmol/L; Blood Urea Nitrogen 33 mg/dL (9-20); Calcium 8.7 mg/dL (8.4-10.2); Carbon Dioxide 23 mmol/L (22-30); Chloride 100 mmol/L (98-107); Glucose 137 mg/dL (74-99); Non-African American GFR(CKD) 88 (>60 ml/min/1.73 sqM); Potassium 4.9 mmol/L (3.5-5.1); Sodium 131 mmol/L (137-145)
[2020-01-30 06:58] LABS: Glucose,Whole Blood 130 mg/dL (75-99)
--- NOTE | 2020-01-30 06:59 | XR ---
EXAMINATION TYPE: XR chest 1V portable DATE OF EXAM: 01/30/2020 HISTORY: Shortness of breath. COMPARISON: 01/29/2020 TECHNIQUE: Single view of the chest is submitted. FINDINGS: Demonstrated are scattered senescent parenchymal change. Persistent mixed perihilar and basilar infiltrates. Correlate for pneumonia. The heart is stable. Hilar and mediastinal structures are within normal limits. Degenerative changes are seen of the dorsal spine. IMPRESSION: 1. Persistent mixed perihilar and basilar infiltrates. Correlate for pneumonia.
[2020-01-30] MEDS: ALBUTEROL HFA INHALER INHALATION PRN ×2 (07:06→15:25)
[2020-01-30] MEDS: SYMBICORT 160-4.5 MCG INHALER INHALATION SCH (07:07)
--- NOTE | 2020-01-30 07:11 | P.PN ---
Subjective Progress Note Date: 01/29/20 Principal diagnosis: Covid 19 pneumonia Patient is a 64-year-old male presenting to the ER with chief complaints of fever of 2 weeks along with increasing shortness of breath and cough in this patient who was diagnosed with COVID19 infection 5 days prior to presentation to the hospital patient was initially on the floor and was treated medically subsequently did have a worsening respiratory distress and has to be transferred out of the ICU, patient was out of the window of treatment with Redemsivir however did receive 2 doses of Actimera on 01/24/2020 On today's evaluation that is 01/29/2020, the patient denies any fever and chills,, the patient is breathing comfortably and oxygen requirement has been down currently on 6 L nasal cannula, the patient denies having any chest pain, the patient did have minimal dry cough no nausea no vomiting no abdominal pain and no diarrhea, patient has been insisting on going home Objective - Vital Signs Vital signs: Vital Signs Temp 97.3 F L 01/29/20 20:00 Pulse 77 01/29/20 21:00 Resp 24 01/29/20 21:00 BP 137/84 01/29/20 21:00 Pulse Ox 88 L 01/29/20 21:00 Intake & Output 01/29/20 01/29/20 01/30/20 06:59 18:59 06:59 Intake Total 950 1620 225 Output Total 1450 1250 300 Balance -500 370 -75 Intake: Intake, IV Titration 950 900 225 Amount Sodium Chloride 0.45% 1, 900 900 225 000 ml @ 75 mls/hr IV . [id number] [facility] Rx#:[id number] cefTRIAXone 1 gm In 50 Sodium Chloride 0.9% 50 ml @ 100 mls/hr IVPB Q24H [facility] Rx#:[id number] Oral 720 Output: Urine 1450 1250 300 Other: Voiding Method Urinal Urinal Urinal - Exam GENERAL DESCRIPTION:[ Patient is awake and alert in no distress] HEENT: [Oral mucosa is dry and no pharyngeal erythema] EYES : [No pallor or scleral icterus] RESPIRATORY SYSTEM: [Unlabored breathing decreased breath sound the bases CARDIA VASCULAR SYSTEM: [S1-S2 regular rate and rhythm no murmur] GI: [Abdominal soft there's no tenderness no organomegaly] EXTREMITIES: [No edema feet] - Labs CBC & Chem 7: 01/30/20 05:18 01/30/20 05:18 Labs: Abnormal Lab Results - Last 24 Hours (Table) 01/29/20 01/29/20 01/29/20 Range/Units 04:07 04:07 06:50 Neutrophils # 7.8 H (1.3-7.7) k/uL Sodium 132 L (137-145) mmol/L BUN 32 H (9-20) mg/dL Glucose 145 H (74-99) mg/dL POC Glucose (mg/dL) 130 H (75-99) mg/dL Calcium 8.3 L (8.4-10.2) mg/dL Ferritin 1779.2 H (22.0-322.0) ng/mL ALT 68 H (4-49) U/L Lactate Dehydrogenase 904 H (313-618) U/L Creatine Kinase 46 L (55-170) U/L Total Protein 5.5 L (6.3-8.2) g/dL Albumin 3.1 L (3.5-5.0) g/dL 01/29/20 01/29/20 01/29/20 Range/Units 11:40 17:33 20:49 Neutrophils # (1.3-7.7) k/uL Sodium (137-145) mmol/L BUN (9-20) mg/dL Glucose (74-99) mg/dL POC Glucose (mg/dL) 130 H 199 H 223 H (75-99) mg/dL Calcium (8.4-10.2) mg/dL Ferritin (22.0-322.0) ng/mL ALT (4-49) U/L Lactate Dehydrogenase (313-618) U/L Creatine Kinase (55-170) U/L Total Protein (6.3-8.2) g/dL Albumin (3.5-5.0) g/dL Microbiology - Last 24 Hours (Table) 01/24/20 10:42 Blood Culture - Preliminary Blood No Growth after 120 hours 01/24/20 10:42 Blood Culture - Preliminary Blood No Growth after 120 hours Assessment and Plan Assessment: 1- patient presented to hospital with increasing shortness of breath in this patient who has been sick for almost 2 weeks before he presented to the hospital with fever increase in shortness of breath dry cough and did have evidence of bilateral infiltrate and outpatient diagnosis of covid19 , now with worsening of his respiratory status over the last 48 hours and the patient has been in the hospital with a question of possible progression to the cytokines fiordaliza for the patient has received Actemra and seems to have shown clinical response with decrease in his FiO2, however x-ray done this morning did show slight worsening , though his CRP has normalized 2- patient did have elevated pro calcitonin which is not common with viral pneumonia underlying component of bacterial pneumonia not entirely excluded (1) Pneumonia due to COVID-19 virus Current Visit: Yes Status: Acute Code(s): U07.1 - COVID-19; J12.89 - OTHER VIRAL PNEUMONIA SNOMED Code(s): 377047794 Plan: 1- patient to continue with with dexamethasone and Lovenox 2- respiratory support and droplet isolation 3- continue Zithromax, Rocephin has been discontinued and will monitor his clinical course closely Time with Patient: Less than 30
--- NOTE | 2020-01-30 07:32 | P.PN ---
Subjective Progress Note Date: 01/30/20 Principal diagnosis: Acute COVID 19 pneumonitis 64-year-old white male patient of Dr. Arnold, with history of hypertension, hyperlipidemia, former smoker, presented to the emergency department on 01/21/2020 with 2 week history of fevers and patient had been tested for Coronavirus at a testing facility outside of [place], and was found to be positive. Over last to 3 days patient has been increasingly short of breath, complaining of fatigue, headaches, loss of smell and taste, and still having fevers. Patient was also found to be hypoxemic, with a pulse ox of 90-91 on 3 L of oxygen, only low-grade temp of 99.5F on presentation, afebrile during his hospital stay, hemodynamically he is stable, chest x-ray showing hazy asymmetric opacification of the left lung base. EKG showing sinus rhythm with PVCs, was normal EKG. Labs on admission showed CBC within normal limits with the exception of lymphocyte count of 0.9, d-dimer of 1.13, fibrinogen 590, sodium is 135, CO2 is 21, the rest of electrolytes and renal profile were unremarkable, plasma lactic acid was 1.1, AST was 94, ALT was 80, alkaline phosphatase was 165, LDH was 1532, CK was 264, troponin was 0.024, and 0.012. ProBNP was 82. Patient was started on oral Decadron at 6 milligrams daily, prophylactic doses of Lovenox, he is on his home dose of Lipitor, home dose of lisinopril, Triamterene-Hctz. At the time of our evaluation patient is in isolation, and droplet precautions, awake and alert, on 4 L of oxygen his pulse ox is 94%, respirations are nonlabored, short of breath with exertion, afebrile, hemodynamically stable. Denies any worsening shortness of breath, no nausea vomiting abdominal pain or diarrhea, no chest pain. On 01/23/2020 patient seen in follow-up on esophageal medical surgical floor. He is awake and alert, currently on 4 L of oxygen, with a pulse ox of 90, his FiO2 was recently increased to 6 L, and his pulse ox is 90%, he states he is feeling about the same, does not appear to be in any acute distress, but is short of breath at rest and with any exertion. Denies any chest pain or palpitations, no nausea vomiting or diarrhea, no fever or chills. Patient is on empiric antibiotics in the form of azithromycin and ceftriaxone, oral dexamethasone, Lovenox, Pepcid. Lung sounds reveal clear diminished breath sounds at the bases. Today's labs have been reviewed, lymphocyte count is 0.7, normal white count of 7.9, LDH is trending down, down to 1002, and CK is down to 173. Pro-calcitonin was 0.23, and patient is on azithromycin and Rocephin. On 01/29/2020 patient seen in follow-up in the intensive care unit. He is awake and alert, in no acute distress currently, on Airvo at 40 L/m and FiO2 of 55%, and his pulse ox is 89-91%. His breathing seems to be comfortable, no complete the chest pain, no cough, or phlegm production, he has been afebrile, hem odynamically stable. Does get short of breath with exertion. Today's chest x- ray has been reviewed showing worsening peripheral bibasilar infiltrates. Patient is status post Tocilizumab infusion 2 doses. He remains on oral Decadron, Pepcid, Rocephin and Zithromax. He is on Lovenox 80 mg twice daily. No worsening dyspnea, no nausea vomiting diarrhea, patient denies any acute complaints, he is becoming frustrated about being in the hospital this long, and he is asking to be able to go home. Was explained to him that he may not be able to have the same amount of oxygen if his oxygen level remains low. But we will give him a trial on high flow oxygen of 6 L. On 01/22/2020 patient is seen in follow-up in the intensive care unit, awake and alert, oriented 3, no acute distress, he is currently down to 6 L per high flow nasal cannula, his pulse ox is 89-90%, patient denies any shortness of breath at rest, he was able to ambulate about the room yesterday without significant exertional dyspnea, no cough, no chest pain, he has been afebrile, vital signs have been stable. His chest x-ray from today has been reviewed showing persistent mixed perihilar and basilar infiltrates. Lung sounds reveal bibasilar crackles at the bases. Today's labs have been reviewed, white blood cell count is 11.9, hemoglobin is 16.5, sodium is 131, serum electrolytes were within normal limits, BUN is 33 creatinine 0.92. Blood cultures are negative thus far. Objective - Vital Signs Vital signs: Vital Signs Temp 97.6 F 01/30/20 00:00 Pulse 57 L 01/30/20 07:00 Resp 17 01/30/20 07:00 BP 115/86 01/30/20 07:00 Pulse Ox 92 L 01/30/20 07:00 Intake & Output 01/29/20 01/30/20 01/30/20 18:59 06:59 18:59 Intake Total 1620 875 Output Total 1250 1200 0 Balance 370 -325 0 Intake: Intake, IV Titration 900 875 Amount Sodium Chloride 0.45% 1, 900 825 000 ml @ 75 mls/hr IV . [id number] [facility] Rx#:[id number] cefTRIAXone 1 gm In 50 Sodium Chloride 0.9% 50 ml @ 100 mls/hr IVPB Q24H [facility] Rx#:[id number] Oral 720 Output: Urine 1250 1200 0 Other: Voiding Method Urinal Urinal - Exam GENERAL EXAM: Alert, very pleasant, 64 -year-old white male on 6 l/min pulse ox of 89-90%, patient appears to be in no acute distress, breathing is comfortable, and does get exertional dyspnea HEAD: Normocephalic/atraumatic. EYES: Normal reaction of pupils, equal size. Conjunctiva pink, sclera white. NOSE: Clear with pink turbinates. THROAT: No erythema or exudates. NECK: No masses, no JVD, no thyroid enlargement, no adenopathy. CHEST: No chest wall deformity. Symmetrical expansion. LUNGS: Equal air entry with no crackles, wheeze, rhonchi or dullness. CVS: Regular rate and rhythm, normal S1 and S2, no gallops, no murmurs, no rubs ABDOMEN: Soft, nontender. No hepatosplenomegaly, normal bowel sounds, no guarding or rigidity. EXTREMITIES: No clubbing, no edema, no cyanosis, 2+ pulses and upper and lower extremities. MUSCULOSKELETAL: Muscle strength and tone normal. SPINE: No scoliosis or deformity SKIN: No rashes CENTRAL NERVOUS SYSTEM: Alert and oriented -3. No focal deficits, tone is normal in all 4 extremities. PSYCHIATRIC: Alert and oriented -3. Appropriate affect. Intact judgment and insight. - Labs CBC & Chem 7: 01/30/20 05:18 01/30/20 05:18 Labs: Abnormal Lab Results - Last 24 Hours (Table) 01/29/20 01/29/20 01/29/20 Range/Units 04:07 11:40 17:33 WBC (3.8-10.6) k/uL Plt Count (150-450) k/uL Neutrophils # (1.3-7.7) k/uL Sodium (137-145) mmol/L BUN (9-20) mg/dL Glucose (74-99) mg/dL POC Glucose (mg/dL) 130 H 199 H (75-99) mg/dL Ferritin 1779.2 H (22.0-322.0) ng/mL ALT (4-49) U/L Total Protein (6.3-8.2) g/dL Albumin (3.5-5.0) g/dL 01/29/20 01/30/20 01/30/20 Range/Units 20:49 05:18 05:18 WBC 11.9 H (3.8-10.6) k/uL Plt Count 551 H (150-450) k/uL Neutrophils # 9.5 H (1.3-7.7) k/uL Sodium 131 L (137-145) mmol/L BUN 33 H (9-20) mg/dL Glucose 137 H (74-99) mg/dL POC Glucose (mg/dL) 223 H (75-99) mg/dL Ferritin (22.0-322.0) ng/mL ALT 73 H (4-49) U/L Total Protein 6.0 L (6.3-8.2) g/dL Albumin 3.4 L (3.5-5.0) g/dL 01/30/20 Range/Units 06:56 WBC (3.8-10.6) k/uL Plt Count (150-450) k/uL Neutrophils # (1.3-7.7) k/uL Sodium (137-145) mmol/L BUN (9-20) mg/dL Glucose (74-99) mg/dL POC Glucose (mg/dL) 130 H (75-99) mg/dL Ferritin (22.0-322.0) ng/mL ALT (4-49) U/L Total Protein (6.3-8.2) g/dL Albumin (3.5-5.0) g/dL Microbiology - Last 24 Hours (Table) 01/24/20 10:42 Blood Culture - Preliminary Blood No Growth after 120 hours 01/24/20 10:42 Blood Culture - Preliminary Blood No Growth after 120 hours Assessment and Plan Plan: Assessment: #1. Acute COVID 19 pneumonitis, patient tested at an outside facility For COVID 19 5 days prior to presentation and was found to be positive, onset of symptoms was 2 weeks ago prior to presentation. Chest x-ray showing hazy asymmetric opacification of the left lung base. Patient was transferred to the intensive care unit on 01/25/2020 with worsening hypoxemia and placed on Airvo. Patient received 2 doses of Tocilizumab. On 01/30/2020 patient is down to 6 L per high flow nasal cannula maintaining a saturation above 89-90% #2. Acute hypoxic respiratory failure related to the above, requiring Airvo, currently down to 10 L per high flow cannula with a pulse ox of 90% #3. Lymphopenia, elevated d-dimer of 1.13, elevated fibrinogen, LDH and CRP related to acute Covid 19 infection, resolved #4. Dyspnea, fatigue, anosmia related to the above, improved #5. Hypertension #6. Hyperlipidemia #7. Former smoker, currently in remission Plan: Patient is doing well, down to 6 L per high flow nasal cannula, no worsening shortness of breath, tolerating ablation in the room, no compressive chest pain, no fever or chills, vital signs have been stable, procalcitonin negative we will stop his antibiotics, he is completing his 10 day course of dexamethasone, IV fluids have been hep-locked, increase activity as tolerated, patient is stable for discharge home today on home oxygen, he will need a prescription for ret esting for Covid 19 on an outpatient basis in 2 weeks, and patient was informed that there is a drive through service for retesting is available through this hospital, he will need a prescription for it. He can complete his Decadron on an outpatient basis. He will need to follow up with his primary care Dr. Arnold after his testing comes back negative. I performed a history & physical examination of the patient and discussed their management with my nurse practitioner, Jami Andrews. I reviewed the nurse practitioner's note and agree with the documented findings and plan of care. Lung sounds are positive for diminished breath sounds at the bases. The findings and the impression was discussed with the patient. I attest to the documentation by the nurse practitioner. Critical care time IS GREATER THAN 30 MINUTES Time with Patient: Less than 30
[2020-01-30] MEDS: INSULIN ASPART (NovoLOG) 100 UNIT/ML VIAL SQ SCH ×2 (07:48→14:17)
[2020-01-30] MEDS: FAMOTIDINE 20 MG TAB PO SCH (08:35)
[2020-01-30] MEDS: lisinopriL 20 MG TAB PO SCH (08:35)
[2020-01-30] MEDS: ENOXAPARIN 80 MG/0.8 ML SYRINGE SQ SCH (08:35)
[2020-01-30] MEDS: dexAMETHasone 2 MG TAB PO SCH (08:35)
[2020-01-30] MEDS: ALPRAZolam 0.5 MG TAB PO SCH (08:36)
[2020-01-30] MEDS: amLODIPine 10 MG TAB PO SCH (08:36)
[2020-01-30 11:05] LABS: Glucose,Whole Blood 141 mg/dL (75-99)
[2020-01-30 12:38] VITALS: TEMP 97.8
[2020-01-30 15:38] VITALS: BP 117/54; PULSE 76; RESP 19
[2020-01-30 16:39] LABS: LD Isoenzymes 1 19 % (19-38); LD Isoenzymes 2 33 % (30-43); LD Isoenzymes 3 24 % (16-26); LD Isoenzymes 4 11 % (3-12); LD Isoenzymes 5 13 % (3-14); Lactacte Dehydrogenase(LD) ISO 353 U/L (120-250)
--- NOTE | 2020-01-31 00:24 | P.DS ---
Providers Date of admission: 01/24/20 08:52 Expected date of discharge: 01/30/20 Attending physician: Linwood Reich Consults: 01/21/20 19:06 Consult Physician Routine Consulting Provider: Salazar Cooley Consult Reason/Comments: covid-19, dyspnea Do you want consulting provider notified?: Yes 01/24/20 10:21 Consult Physician Routine Consulting Provider: Tanvir Hodges Consult Reason/Comments: covid 19 pneumonitis Do you want consulting provider notified?: Yes Primary care physician: Jesus Shaw [facility] Course: Presenting complaint: Shortness of breath Interval history: Patient presented with 2 weeks of fever prior to presentation and increased shortness of breath and cough. Diagnosed with COVID 19 infection 5 days prior to presentation. Initially the medical floor. Been into respiratory distress moved to the ICU. Patient was out of the window for treatment forRedemsivir. Did receive 2 doses of Actimera on January 23. Patient had been on high flow ox ygen Today-oxygen down to 5 L. Tolerating a diet. Patient very anxious to go home. Patient was cleared by Dr. Barrera for the same. patient did walk around the room. steroids to be tapered Consultation: Dr. Barrera from pulmonary ID. On examination: VITAL SIGNS: 97.8, 65, 15, 118/73, 90% on 5 L GENERAL APPEARANCE:sitting on the bed, anxious PSYCHIATRY: Alert and oriented x3. Mood and affect normal. Rest of the physical exam as per pulmonary -noted INVESTIGATIONS, reviewed in the clinical context: White count 9.9 potassium 4.9 crit is 0.9 to, CRP less than 5 Previous testing White count 9.8 hemoglobin 15.1 percussion 4.7 crit 0.94 sodium 132 Ferritins 1779, LDH 904, pro calcitonin 0.06 Chest x-ray from-bilateral infiltrates Assessment: -Acute severe COVID 19 pneumonitis -Acute hypoxic respiratory failure from above initially requiring Airvo -essential hypertension -hyperlipidemia -Mild hyponatremia -Hyperglycemia secondary to steroids. Not a diabetic disposition: Home with oxygen Patient Condition at Discharge: Undetermined Plan - Discharge Summary Discharge Rx Participant: Yes New Discharge Prescriptions: New predniSONE 10 mg PO DAILY #30 tab Budesonide-Formot 160-4.5 Mcg [Symbicort 160-4.5 Mcg Inhaler] 2 puff INHALATION RT-BID #1 puff Albuterol Inhaler [Ventolin Hfa Inhaler] 2 puff INHALATION RT-Q4H PRN #1 puff PRN Reason: Shortness Of Breath Or Wheezing Continue Multivitamin [Men's Multi-Vitamin] 1 tab PO DAILY ALPRAZolam [Xanax] 0.5 mg PO BID PRN PRN Reason: Anxiety Atorvastatin [Lipitor] 20 mg PO HS Aspirin 81 mg PO HS amLODIPine BESYLATE/BENAZEPRIL [Lotrel 10-40 MG] 1 cap PO DAILY Fish Oil/Dha/Epa [Fish Oil 1,200 mg Fish Oil] 1 tab PO BID Cholecalciferol [Vitamin D3 (25 Mcg = 1000 Iu)] 2,000 unit PO DAILY Discontinued Triamterene-Hctz 37.5-25Mg [Maxzide 37.5-25] 1 tab PO DAILY Discharge Medication List ALPRAZolam [Xanax] 0.5 mg PO BID PRN 11/23/13 [History] Aspirin 81 mg PO HS 11/23/13 [History] Atorvastatin [Lipitor] 20 mg PO HS 11/23/13 [History] Multivitamin [Men's Multi-Vitamin] 1 tab PO DAILY 11/23/13 [History] Fish Oil/Dha/Epa [Fish Oil 1,200 mg Fish Oil] 1 tab PO BID 11/24/13 [History] amLODIPine BESYLATE/BENAZEPRIL [Lotrel 10-40 MG] 1 cap PO DAILY 11/24/13 [History] Cholecalciferol [Vitamin D3 (25 Mcg = 1000 Iu)] 2,000 unit PO DAILY 01/21/20 [History] Albuterol Inhaler [Ventolin Hfa Inhaler] 2 puff INHALATION RT-Q4H PRN #1 puff 01/30/20 [Rx] Budesonide-Formot 160-4.5 Mcg [Symbicort 160-4.5 Mcg Inhaler] 2 puff INHALATION RT-BID #1 puff 01/30/20 [Rx] predniSONE 10 mg PO DAILY #30 tab 01/30/20 [Rx] Follow up Appointment(s)/Referral(s): [facility] [NON-STAFF] - As Needed Jesus Arnold MD [Primary Care Provider] - 1-2 days Patient Instructions/Handouts: Using Oxygen at Home (DC) Discharge Disposition: HOME SELF-CARE
== END 2020-01-30 16:46 | disposition home or self-care (01) | DRG 177 ==
LOC: EC 16:28 → 4SSUR 19:06 → OBSVTOIN 01-24 08:52 → 2SICU 01-24 09:39
PROVIDERS: ADMIT Hospitalist; ATTEND Hospitalist
DX: U07.1 COVID-19 (principal); J12.89 Other viral pneumonia; J96.01 Acute respiratory failure with hypoxia; K50.90 Crohn's disease, unspecified, without complications; E87.1 Hypo-osmolality and hyponatremia; Z68.41 Body mass index [BMI] 40.0-44.9, adult; D72.810 Lymphocytopenia; E11.65 Type 2 diabetes mellitus with hyperglycemia; E66.01 Morbid (severe) obesity due to excess calories; E78.5 Hyperlipidemia, unspecified; E86.0 Dehydration; I10 Essential (primary) hypertension; I49.3 Ventricular premature depolarization; K59.00 Constipation, unspecified; T38.0X5A Adverse effect of glucocorticoids and synthetic analogues, initial encounter; Z79.82 Long term (current) use of aspirin; Z79.899 Other long term (current) drug therapy; Z85.828 Personal history of other malignant neoplasm of skin; Z87.442 Personal history of urinary calculi; Z87.891 Personal history of nicotine dependence; Z90.49 Acquired absence of other specified parts of digestive tract; Z88.8 Allergy status to other drugs, medicaments and biological substances; Z99.81 Dependence on supplemental oxygen; Z80.9 Family history of malignant neoplasm, unspecified
CPT/HCPCS: 36415; 71045; 80053; 82550; 82728; 83036; 83520; 83605; 83615; 83625; 83735; 83880; 84145; 84484; 85025; 85027; 85379; 85384; 85610; 85730; 86140; 87040; 93005; 94640; 94760; 96374; 99285

== ENCOUNTER 2020-04-08 09:24 | Day surgery (SDC) | payer BC ==
[2020-04-04 14:28] VITALS: BMI 40.6
[~2020-04-08 09:24] MED LIST changes: +LIDOCAINE 1% (10MG/ML) FOR IV START INTRADERMA PRN
[2020-04-08 09:49] VITALS: TEMP 97.3
[2020-04-08] MEDS ORDERED: LIDOCAINE 1% INJ 10MG/ML (20 ML MDV) ONE (10:54)
[2020-04-08] MEDS ORDERED: KETAMINE 10 MG/ML 20 ML VIAL ONE (10:54)
[2020-04-08] MEDS ORDERED: fentaNYL (PF) 50 MCG/ML 2 ML AMP ONE (10:54)
[2020-04-08] MEDS ORDERED: PROPOFOL 10 MG/ML 20 ML VIAL IV ONE (10:54)
--- NOTE | 2020-04-08 12:11 | P.PCN ---
Date of Procedure: 04/08/20 Description of Procedure: BRIEF HISTORY: Patient is a 64-year-old male presenting for outpatient colonoscopy for evaluation of a personal history of colon polyps. Last colonoscopy was in August 2016. He has a personal history of colon polyps with multiple polyps removed in the past. In addition the patient has a family history of colon cancer in his father. PROCEDURE PERFORMED: Colonoscopy with polypectomy. PREOPERATIVE DIAGNOSIS: Personal history of colon polyps, family history of colon cancer, last colonoscopy in 2016 with polyps removed. ESTIMATED BLOOD LOSS: Minimal. IV sedation per Anesthesia. PROCEDURE: After informed consent was obtained, the patient, was brought into the endoscopy unit. IV sedation was administered by Anesthesia under continuous monitoring. Digital rectal examination was normal. Initially the Olympus CF-190 flexible video colonoscope was then inserted in the rectum, gradually advanced into the cecum without any difficulty. Careful examination was performed as the scope was gradually being withdrawn. Ileocecal valve and the appendiceal orifice were visualized and appeared normal. Prep was excellent. Mucosa of the cecum, ascending colon, transverse colon, descending colon, sigmoid colon, and rectum appeared normal. A few scattered diverticula noted in the sigmoid colon. The patient had multiple polyps measuring 4 mm to 9 mm in size removed with cold snare polypectomy, 4 from the cecum, 5 from the ascending colon, 3 from the hepatic flexure, 3 from the transverse colon, and 2 from the descending colon. 9 diminutive polyps removed with cold forceps polypectomy measuring 2-3 mm in size, 3 from the sigmoid colon and 6 from the rectum. One large pedunculated rectal polyp measuring 4 mm in size removed with hot snare polypectomy. One Endo Clip was placed in the ascending colon due to some post-polypectomy bleeding with hemostasis achieved. Retroflexion was performed in the rectum and no lesions were seen. The patient tolerated the procedure well. IMPRESSION: 17 medium-sized polyp removed with cold snare polypectomy from the ascending colon, cecum, hepatic flexure, transverse colon and descending colon (please see body of report for location and size and number of polyps). One large pedunculated rectal polyp removed with hot snare polypectomy. 9 diminutive polyps removed from the sigmoid and rectum with cold forcep polypectomy. One Endo Clip placed in the ascending colon for hemostasis at the site of polypectomy. Mild sigmoid diverticulosis. RECOMMENDATIONS: Findings of this examination were discussed with the patient his . Okay to resume diet. Would hold off on any NSAID therapy or anticoagulation for the next 72 hours. Await pathology from polypectomy. Would recommend repeat colonoscopy in 1 year for high-risk colon polyps.
[2020-04-08 12:12] VITALS: RESP 16
[2020-04-08 12:28] VITALS: BP 132/74; PULSE 57
== END 2020-04-08 12:55 | disposition home or self-care (01) ==
LOC: ORWHC2ENDO 09:24
PROVIDERS: ATTEND Internal Medicine
DX: Z12.11 Encounter for screening for malignant neoplasm of colon (principal); D12.0 Benign neoplasm of cecum; D12.2 Benign neoplasm of ascending colon; D12.3 Benign neoplasm of transverse colon; D12.4 Benign neoplasm of descending colon; D12.8 Benign neoplasm of rectum; K63.5 Polyp of colon; K57.30 Diverticulosis of large intestine without perforation or abscess without bleeding; Z86.010 Personal history of colon polyps; Z80.0 Family history of malignant neoplasm of digestive organs; I10 Essential (primary) hypertension; E78.5 Hyperlipidemia, unspecified; Z86.19 Personal history of other infectious and parasitic diseases; Z87.442 Personal history of urinary calculi; Z79.51 Long term (current) use of inhaled steroids; Z79.82 Long term (current) use of aspirin; Z79.899 Other long term (current) drug therapy; Z98.52 Vasectomy status; Z90.49 Acquired absence of other specified parts of digestive tract; Z87.891 Personal history of nicotine dependence; Z88.8 Allergy status to other drugs, medicaments and biological substances
CPT/HCPCS: 45385; 45380; 88305; J2001; J3010; J2704; 45382